=== PATIENT | female | born 1960 | race Caucasian/White ===

== ENCOUNTER 2017-11-15 09:54 | Inpatient (IN) | payer BC ==
[2017-11-15] MEDS ORDERED: LORazepam INJ* 2 MG/ML 1 ML VIAL ONE (09:57)
[2017-11-15] MEDS ORDERED: Propofol* 10 MG/ML 20 ML BTL IV PUSH ONE ×2 (10:06→10:22)
[2017-11-15] MEDS ORDERED: Propofol* 100 ML ONE (10:10)
[2017-11-15] MEDS ORDERED: Succinylcholine* 20 MG/ML 10 ML VIAL ONE (10:14)
[2017-11-15] MEDS ORDERED: fentaNYL* 50 MCG/ML 2 ML VIAL (100 MCG VIAL) IV SLOW PU ONE (10:22)
[2017-11-15] MEDS ORDERED: metroNIDAZOLE IV 500 MG/100ML* 500 MG/100 ML BAG IVPB ONE (10:23)
[2017-11-15] MEDS ORDERED: Piperacillin/Tazobac ADVAN(*) 3.375 GM in NS 0.9% 100 ML* 100 ML IVPB ONE (10:23)
[2017-11-15] MEDS ORDERED: Vancomycin(*) 1,250 MG in NS 0.9% 250 ML* 250 ML IVPB ONE (10:23)
[2017-11-15] MEDS ORDERED: Thiamine IV* 100 MG, Folic Acid IV* 1 MG, Multiple Vitamin IV ADULT* 10 ML in NS 0.9% 1... IV ONE (10:23)
[2017-11-15 10:24] LABS: ABS Basophils 0 10^3/ul (0-0.2); ABS Eosinophils 0 10^3/ul (0-0.6); ABS Lymphocytes 0.6 10^3/ul (1.0-4.8); ABS Neutrophils 14.9 10^3/ul (1.5-7.7); ABS Nucleated RBC 0 10^3/ul; Eosinophil % 0 % (0-6); Hematocrit 39 % (35-47); Hemoglobin 12.7 g/dl (12.0-16.0); Lymphocyte % 3.8 % (25-47); Mean Corpuscular HGB Conc 33 g/dl (31-36); Mean Corpuscular Hemoglobin 28 pg (27-31); Mean Corpuscular Volume 85 fL (80-97); Mean Platelet Volume 8.4 um3 (7.4-10.4); Nucleated Red Blood Cells % 0; Platelet Count 267 10^3/ul (150-450); Red Blood Count 4.51 10^6/ul (4.00-5.40); Red Cell Distribution Width 13 % (10.5-15); White Blood Count 16.6 10^3/ul (3.5-10.8)
[2017-11-15] MEDS ORDERED: Albuterol/Ipratropium NEB.SOL* Albuterol 2.5 MG/Ipratropium 0.5 MG 3 ML INH ONE (10:24)
[2017-11-15 10:32] LABS: INR 0.94 (0.77-1.02)
[2017-11-15 10:35] LABS: EGFR Non-African American 48.8 (>60)
[2017-11-15] MEDS ORDERED: LORazepam INJ* 2 MG/ML 1 ML VIAL IV PUSH ONE (10:37)
[2017-11-15] MEDS ORDERED: Lactated Ringers 1000 ml Bag*IV.FLUID IV ONE (10:37)
[2017-11-15] MEDS ORDERED: methylPREDNISolone 125 MG* 2 ML VIAL IV ONE (10:48)
--- NOTE | 2017-11-15 10:51 | ED ---
Complex/Multi-Sys Presentation - HPI Summary HPI Summary: This is scribe Tiago Dusty documenting for attending Jacinto Lin. A 57 y/o female HUSSAIN presents to ED s/p diabetic issues. In the ED room, the patient has a pulse of 120, O2 saturation of 100% and blood pressure of 176/ 133. As per triage, "EMS called for diabetic concerns. BG was 500, HTN, tachycardic, severe AMS, left sided weakness, wheezing, per family patient hasnt had anything PO for two days. well check performed yesterday by EMS, patient was not this severe". Patient is hunched over in bed and is difficult to put on her back. According to patient, she has neck pain. As per EMS, they where out there with patient yesterday (with partner he came with today, Ezequiel) for diabetic issues. The patient didn't want to go to hospital. However, yesterday wasn't DM as she took her pills/meds with ETOH and was laying out. Patient was using ETOH, not eating or drinking. Called 911 today in AM and says it is diabetic problem. She was hyperglycemic at 500, O2 saturation was at 62% and wheezing (primarily upper left sided wheezes). Gave 1 Albuterol. She was hypertensive as she was 200/110 and HR was 120. She is also febrile. Patient was communicative a bit but restless. Patient has weak left arm and weakness/lean on left side. Also, wounds in lower limbs with swelling. She has been dealing with wounds with leg swelling as a result. PERRL. Wounds on arm with bandage bleeding. Profound left-sided weakness. with family is in [place]. She was talking but just weak. Could not hold left arm up at all. is emotional as he is very concerned for her and she doesn't take care of herself. No food or drink for 2 days. Did not have left-sided issues yesterday. At 1007, as per MD: Patient states neck pain. Force flexing right hip. Force elevation to right elbow. Gazed deviation to the right. Gazing and contraction on right side. At 1020, as per : Patient threw up many times. Patient has HBP and fluid in legs. Three days ago, patient was given three new medications. His has been on two different kinds of pain medications and drinks a lot of ETOH. All medications prescribed. Antibiotics for feet. MEDICATIONS: - Oxycodone HCL 5 m tab every 8 hours as needed. Max is 5 tabs. - Carvedilol 3.125 m tab per day, twice a day. - Torsemid 20 m tabs per day. - Tramadol HCL 50 m tabs every 8 hours as needed. Max is 6 tabs. - Lisinopril 20 m tabs per day. - Cephalexin 500 m tab per day, four times day. - Levothyroxine 50 mc tab per day at breakfast. - Spironolactone 25 m tab per day. - Toresemide 20 m tab per day. At 1033, as per , EMS came yesterday because she wasn't acting right. Before yesterday (Thursday), she cooked dinner with kids over at the house. Had to happen Thursday night or Thursday morning where she took medications with drinking ETOH in the afternoon/night. He noticed problem Thursday night and the patient was getting worse. Her arm wasn't like it was till last night where it was stiff. She drinks a half-gallon of [employer] every other day of the week. Patient has been vomiting several times in bathroom around Thursday. She also vomited last night. She did get up and walk around a bit, but she didn't know where she was. She was out of then, all she could say is the day and month (got it correct). He told EMS to take her, but EMS spoke to police and said they didn't need to take her. Patient lives in [place], [place]. "[facility] " with a girl and koffi. He wanted to have her come to hospital via EMS yesterday as his mother and father was present. He called them because she wouldn't say anything and didn't know what to do. Patient is usually good with insulin, as she eats yogurt and does her shot in the AM. She takes pills by noontime and then she starts drinking soon after. Patient feel out of bed 2-3 times. Patient layed on floor with blanket and wouldn't get up. Only gave her 4-5 bottles of water. No PMHx of seizure. Last week she went to doctors who did several tests and they couldn't find anything. They did blood tests because of the swelling of her legs. Doctors didn't know what was wrong with her so they sent her to a specialist for her feet (worried about infection and DM). He spoke to doctor last night where he found that the patient only told him that she drinks small glass of ETOH. Reevaluation at 1057: Seizure activity appears to have seized. HR 110, BP 170 systolic. Differentials are intracranial hemmorage, alcohol withdrawal seizure, CVA and lower suspicion for meningitis. Reevaluation at 1210: Dr. Brice called to inform MD that he should start insulin drip, defer the lumbar punction decision to neurologist. Cover empiric antibiotics. I, Dr. Lin, personally performed the services described in this documentation as scribed in my presence and it is both accurate and complete. - History Of Current Complaint Chief Complaint: EDAltMentalStatus Time Seen by Provider: 11/15/17 10:04 Hx Obtained From: Family/[employer], EMS Hx From Patient Unobtainable Due To: Altered Mental Status Onset/Duration: Lasting Days, Still Present Timing: Constant Character: Unable To Describe Aggravating Factor(s): NOTHING Alleviating Factor(s): NOTHING Associated Signs And Symptoms: Positive: Weakness, Vomiting, Fever - Allergies/Home Medications Allergies/Adverse Reactions: Allergies Allergy/AdvReac Type Severity Reaction Status Date / Time No Known Allergies Allergy Verified 01/15/16 10:42 PMH/Surg Hx/FS Hx/Imm Hx Endocrine/Hematology History: Reports: Hx Diabetes - type I Cardiovascular History: Reports: Hx Hypercholesterolemia, Hx Hypertension Infectious Disease History: No Infectious Disease History: Denies: Traveled Outside the [place] in Last 30 Days - Family History Known Family History: Positive: Cardiac Disease - Mother 39yo heart disease and DM, Diabetes - Social History Alcohol Use: Daily Hx Substance Use: No Substance Use Type: Reports: None Hx Tobacco Use: Yes Smoking Status (MU): Heavy Every Day Tobacco Smoker Type: Cigarettes Review of Systems Positive: Fever. Negative: Chills Negative: Erythema Negative: Sore Throat Positive: Other - POSITIVE: HTN, tachycardia. Negative: Chest Pain Positive: Other - POSITIVE: Wheezing. Negative: Shortness Of Breath, Cough Positive: Vomiting. Negative: Abdominal Pain, Nausea Negative: dysuria, hematuria Positive: Edema - Legs, Other - POSITIVE: Left-sided deficit. Negative: Myalgia Positive: Other - POSITIVE: Wounds on arms (bleeding). Negative: Rash Neurological: Other - NEGATIVE: Dizziness;POSITIVE: Seizure Positive: Weakness All Other Systems Reviewed And Are Negative: Yes Physical Exam - Summary Physical Exam Summary: 1018: Post-intubation Constitutional: Distressed. Patient is in curled up position on stretcher. Glyscope reveals secretions over epiglottis. Suspect aspiration. Muscle tone is normal now, however, patient is paralyzed so that is not a fair assessment, will recheck. Skin: Warm, Dry HENT: Normocephalic; Atraumatic Eyes: Conjunctiva normal Neck: Musculoskeletal ROM normal neck. (-) JVD, (-) Stridor, (-) Tracheal deviation Cardio: Rhythm regular, rate normal, Heart sounds normal; Intact distal pulses; The pedal pulses are 2+ and symmetric. Radial pulses are 2+ and symmetric. (-) Murmur Pulmonary/Chest wall: Bilateral equal breath sounds Abd: Soft, (-) epigastric tenderness, (-) Distension, (-) Guarding, (-) Rebound. No epigastric sounds Musculoskeletal: (-) Edema Lymph: (-) Cervical adenopathy Neuro: Alert, Oriented x3 Psych: Mood and affect Normal Triage Information Reviewed: Yes Vital Signs On Initial Exam: Initial Vitals Temp Pulse Resp BP Pulse Ox 101.1 F 122 28 205/133 92 11/15/17 09:59 11/15/17 09:59 11/15/17 09:59 11/15/17 09:59 11/15/17 09:59 Vital Signs Reviewed: Yes Diagnostics - Vital Signs Vital Signs Temp Pulse Resp BP Pulse Ox 11/15/17 10:36 24 11/15/17 09:59 101.1 F 122 20 205/133 92 - Laboratory Lab Results: Lab Results 11/15/17 11/15/17 11/15/17 Range/Units 10:08 10:08 10:08 WBC 16.6 H (3.5-10.8) 10^3/ul RBC 4.51 (4.00-5.40) 10^6/ul Hgb 12.7 (12.0-16.0) g/dl Hct 39 (35-47) % MCV 85 (80-97) fL MCH 28 (27-31) pg MCHC 33 (31-36) g/dl RDW 13 (10.5-15) % Plt Count 267 (150-450) 10^3/ul MPV 8.4 (7.4-10.4) um3 Neut % (Auto) 90.0 H (38-83) % Lymph % (Auto) 3.8 L (25-47) % [place] % (Auto) 5.9 (0-7) % Eos % (Auto) 0 (0-6) % Baso % (Auto) 0.3 (0-2) % Absolute Neuts (auto) 14.9 H (1.5-7.7) 10^3/ul Absolute Lymphs (auto) 0.6 L (1.0-4.8) 10^3/ul Absolute Monos (auto) 1.0 H (0-0.8) 10^3/ul Absolute Eos (auto) 0 (0-0.6) 10^3/ul Absolute Basos (auto) 0 (0-0.2) 10^3/ul Absolute Nucleated RBC 0 10^3/ul Nucleated RBC % 0 INR (Anticoag Therapy) 0.94 (0.77-1.02) APTT 28.2 (26.0-36.3) seconds Patient Temperature ABG pH ABG pH (Temp Correct) ABG pCO2 ABG pCO2 (Temp Corrct ABG pO2 ABG pO2 (Temp Correct ABG HCO3 ABG O2 Saturation ABG Base Excess Respiration Rate O2 Delivery Device Ventilator Type Vent Mode FiO2 Inspiratory Time PEEP Pressure Support Pressure Control EPAP IPAP BiPAP Sodium 125 L (135-145) mmol/L Potassium 4.5 (3.5-5.0) mmol/L Chloride 85 L (101-111) mmol/L Carbon Dioxide 14 L* (22-32) mmol/L Anion Gap 26 H (2-11) mmol/L BUN 34 H (6-24) mg/dL Creatinine 1.15 H (0.51-0.95) mg/dL Est GFR ( Amer) 59.1 (>60) Est GFR (Non-Af Amer) 48.8 (>60) BUN/Creatinine Ratio 29.6 H (8-20) Glucose 550 H* (70-100) mg/dL Lactic Acid (0.5-2.0) mmol/L Calcium 9.3 (8.6-10.3) mg/dL Total Bilirubin 1.10 H (0.2-1.0) mg/dL AST 32 (13-39) U/L ALT 23 (7-52) U/L Alkaline Phosphatase 110 H (34-104) U/L Ammonia (16-53) mcmol/L Troponin I 0.04 H* (<0.04) ng/mL Total Protein 6.4 (6.4-8.9) g/dL Albumin 3.3 (3.2-5.2) g/dL Globulin 3.1 (2-4) g/dL Albumin/Globulin Ratio 1.1 (1-3) TSH Pending Free T4 Pending Serum Alcohol Pending 11/15/17 11/15/17 11/15/17 Range/Units 10:08 10:08 10:35 WBC (3.5-10.8) 10^3/ul RBC (4.00-5.40) 10^6/ul Hgb (12.0-16.0) g/dl Hct (35-47) % MCV (80-97) fL MCH (27-31) pg MCHC (31-36) g/dl RDW (10.5-15) % Plt Count (150-450) 10^3/ul MPV (7.4-10.4) um3 Neut % (Auto) (38-83) % Lymph % (Auto) (25-47) % [place] % (Auto) (0-7) % Eos % (Auto) (0-6) % Baso % (Auto) (0-2) % Absolute Neuts (auto) (1.5-7.7) 10^3/ul Absolute Lymphs (auto) (1.0-4.8) 10^3/ul Absolute Monos (auto) (0-0.8) 10^3/ul Absolute Eos (auto) (0-0.6) 10^3/ul Absolute Basos (auto) (0-0.2) 10^3/ul Absolute Nucleated RBC 10^3/ul Nucleated RBC % INR (Anticoag Therapy) (0.77-1.02) APTT (26.0-36.3) seconds Patient Temperature Not Reportable ABG pH Pending ABG pH (Temp Correct) Pending ABG pCO2 Pending ABG pCO2 (Temp Corrct Pending ABG pO2 Pending ABG pO2 (Temp Correct Pending ABG HCO3 Pending ABG O2 Saturation Pending ABG Base Excess Pending Respiration Rate Not Reportable O2 Delivery Device vent Ventilator Type Not Reportable Vent Mode Not Reportable FiO2 100 Inspiratory Time Not Reportable PEEP Not Reportable Pressure Support Not Reportable Pressure Control Not Reportable EPAP Not Reportable IPAP Not Reportable BiPAP Not Reportable Sodium (135-145) mmol/L Potassium (3.5-5.0) mmol/L Chloride (101-111) mmol/L Carbon Dioxide (22-32) mmol/L Anion Gap (2-11) mmol/L BUN (6-24) mg/dL Creatinine (0.51-0.95) mg/dL Est GFR ( Amer) (>60) Est GFR (Non-Af Amer) (>60) BUN/Creatinine Ratio (8-20) Glucose (70-100) mg/dL Lactic Acid 2.5 H* (0.5-2.0) mmol/L Calcium (8.6-10.3) mg/dL Total Bilirubin (0.2-1.0) mg/dL AST (13-39) U/L ALT (7-52) U/L Alkaline Phosphatase (34-104) U/L Ammonia 49 (16-53) mcmol/L Troponin I (<0.04) ng/mL Total Protein (6.4-8.9) g/dL Albumin (3.2-5.2) g/dL Globulin (2-4) g/dL Albumin/Globulin Ratio (1-3) TSH Free T4 Serum Alcohol Result Diagrams: 11/15/17 10:08 11/15/17 18:04 Lab Statement: Any lab studies that have been ordered have been reviewed, and results considered in the medical decision making process. Re-Evaluation - Re-Evaluation First Eval Re-Evaluation Time: 10:07 Comment: is tearful and very sad for his . MD gave patient's plan and decision making. [facility]. Second Eval Re-Evaluation Time: 10:09 Comment: In the ED room, the patient was noted to be shivering/shaking. Third Eval Re-Evaluation Time: 10:15 Comment: In ED room, the patient has a pulse of 115 BPM, O2 saturation of 98% and blood pressure of 194/199. Fourth Eval Re-Evaluation Time: 10:40 Comment: It was noted that the patient is lying on her back on stretcher. HR and BP is coming down, as per nursing staff. In the ED room, the patient has a pulse of 110, O2 saturation of 100% and blood pressure of 201/108. Fifth Eval Re-Evaluation Time: 10:42 Comment: Dr. Brice is in ED room with patient. brought Dr. Brice up to speed of case. Sixth + Eval Re-Evaluation Time: 10:53 Comment: MD called Dr. Kinney and updated him on case. Dr. Kinney will see patient in ICU. Complex Multi-Symp Course/Dx Course Of Treatment: A 57 y/o female HUSSAIN presents to ED s/p diabetic issues. In the ED room, the patient has a pulse of 120, O2 saturation of 100% and blood pressure of 176/133. As per triage, "EMS called for diabetic concerns. BG was 500, HTN, tachycardic, severe AMS, left sided weakness, wheezing, per family patient hasnt had anything PO for two days. well check performed yesterday by EMS, patient was not this severe". Patient is hunched over in bed and is difficult to put on her back. According to patient, she has neck pain. No laboratory scans were done. In the ED course, the patient received Duoneb, Ceftriaxone Sodium, Fentanyl Citrate, Insulin, Lactated Ringers, Lorazepam, Solu -Medrol, Flagyl, Piperacillin, Diprivan, Anectine, Thiamine and Vancomycin. Patient care was discussed with Dr. Brice who accepts patient for admission. Patient will be admitted with a diagnosis of DKA, focal seizure and status epilepsy. Patient family is agreeable with this plan. - Diagnoses Provider Diagnoses: Epilepsy with status epilepticus, DKA (diabetic ketoacidoses), Focal seizure - Physician Notifications Discussed Care Of Patient With: Colin Brice Time Discussed With Above Provider: 11:19 Instructed by Provider To: Other - Accepts patient for admission to ICU. - Critical Care Time Critical Care Time: 30-74 min - 60 minutes. Discharge - Sign-Out/Discharge Documenting (check all that apply): Patient Departure - ADMIT - Discharge Plan Condition: Stable Disposition: ADMITTED TO [facility]
--- NOTE | 2017-11-15 10:52 | RAD ---
HISTORY: AMS COMPARISONS: June 09, 2003 VIEWS: 1: frontal portable view of the chest at 10:33 AM. The patient is obliqued to the left. FINDINGS: LINES AND TUBES: An endotracheal tube is noted with the tip overlying the trachea between the clavicles and the antionette. A gastric tube is noted. The tip is below the [id number] of the current examination, but is below the diaphragm. CARDIOMEDIASTINAL SILHOUETTE: The cardiomediastinal silhouette is normal for portable technique. PLEURA: The costophrenic angles are sharp. No pleural abnormalities are noted. LUNG PARENCHYMA: The lungs are clear. ABDOMEN: The upper abdomen is clear. There is no subphrenic gas. BONES AND SOFT TISSUES: No bone or soft tissue abnormalities are noted. IMPRESSION: LINES AND TUBES ABOVE. NO ACTIVE CARDIOPULMONARY DISEASE.
[2017-11-15 10:58] LABS: Urine Appearance Cloudy; Urine Blood 3+ (Negative); Urine Color Yellow; Urine Ketones 2+ (Negative); Urine Protein 3+(>=500 mg/dL) (Negative); Urine Red Blood Cell 3+(>10/hpf) (Absent); Urine Urobilinogen Negative (Negative); Urine White Blood Cell Absent (Absent)
[2017-11-15] MEDS ORDERED: Propofol* 500 MG/50 ML BTL IV SCH (11:00)
--- NOTE | 2017-11-15 11:29 | RAD ---
HISTORY: AMS COMPARISONS: January 16, 2016 TECHNIQUE: Multiple contiguous axial CT scans were obtained of the head without intravenous contrast. FINDINGS: The study is limited by patient motion artifact. HEMORRHAGE/INFARCT: There is no hemorrhage or acute infarct. MASSES/SHIFT: There is no mass or shift. EXTRA-AXIAL SPACES: There are no extra-axial fluid collections. SULCI AND VENTRICLES: The sulci and ventricles are normal in size and position for the patient's stated age. CEREBRUM: There are no focal parenchymal abnormalities. BRAINSTEM: There are no focal parenchymal abnormalities. CEREBELLUM: There are no focal parenchymal abnormalities. VESSELS: The vessels are grossly normal. PARANASAL SINUSES: The paranasal sinuses are clear. ORBITS: The orbits are unremarkable. BONES AND SOFT TISSUE: No bone or soft tissue abnormalities are noted. OTHER: Endotracheal and orogastric tubes are noted IMPRESSION: NO ACUTE INTRACRANIAL PATHOLOGY.
--- NOTE | 2017-11-15 11:40 | RAD ---
HISTORY: AMS NECK PAIN COMPARISONS: None TECHNIQUE: Multiple contiguous axial CT scans were obtained of the cervical spine without intravenous contrast, with coronal and sagittal multiplanar reformations. FINDINGS: BRAIN: The visualized brain is unremarkable CENTRAL CANAL: Evaluation of the central canal is limited on CT technique; however, there is no obvious canalicular mass or epidural hemorrhage. ALIGNMENT: There is grade 1 anterolisthesis of C3 on C4. There is grade 1 retrolisthesis of C5 on C6. VERTEBRAL BODIES: There is mild anterolateral marginal osteophyte formation. There is reactive end plate changes at C3-C4. JOINTS: There is diffuse uncovertebral and facet osteoarthritis most pronounced at C3-C4. There is partial fusion across the facet joint on the left at C3-C4. MUSCULATURE: Unremarkable INTERVERTEBRAL DISCS: There is diffuse loss of intervertebral disc height. AXIAL IMAGES: C2-C3: There is bilateral uncovertebral hypertrophy. There is mild left neural foraminal narrowing. There is no osseous central canal stenosis. C3-C4: There is bilateral uncovertebral and facet hypertrophy. There is moderate right and severe left neural foraminal narrowing. There is moderate narrowing of the central canal. C4-C5: There is right greater than left facet hypertrophy. There is no osseous neural foraminal narrowing or central canal stenosis. C5-C6: There is bilateral uncovertebral hypertrophy. There is mild bilateral neuroforaminal narrowing. There is no osseous central canal stenosis. C6-C7: There is no osseous neural foraminal narrowing or central canal stenosis. C7-T1: There is no osseous neural foraminal narrowing or central canal stenosis. SOFT TISSUES: The visualized soft tissues of the neck are unremarkable. There is emphysematous change of the lung apices. The prevertebral fat stripe is preserved. OTHER: An endotracheal tube and orogastric tube are noted. IMPRESSION: 1. NO ACUTE OSSEOUS INJURY TO THE CERVICAL SPINE. 2. DEGENERATIVE DISC DISEASE AND OSTEOARTHRITIS, ADVANCED AT C3-C4, WITH ASSOCIATED SPONDYLOLISTHESIS. 3. THERE IS MULTILEVEL NEUROFORAMINAL NARROWING DESCRIBED ABOVE. 4. THERE IS MODERATE NARROWING OF CENTRAL CANAL AT C3-C4.
[2017-11-15] MEDS ORDERED: Insulin REGULAR(*) 1 UNITS UNIT IV PUSH ONE (12:22)
[2017-11-15] MEDS ORDERED: Insulin REGULAR(*) 1 UNITS UNIT ONE (12:57)
[2017-11-15] MEDS ORDERED: Vancomycin per Pharmacy* NOTE FOLLOW UP SCH (13:00)
[2017-11-15] MEDS ORDERED: Insulin IVPB 100 units/100 ml 100 UNITS/100 ML UNIT IVPB SCH (13:00)
--- NOTE | 2017-11-15 13:28 | HP ---
H&P (Free Text) History and Physical: History and Physical -- Critical Care Limitations in history/physical: intubated, mental status change HPI: 57y F pmhx of DM, Hypothyroidism, Cardiomyopathy, Hypertension, chronic pain; patient comes to ER for change in mental status. Thursday night to thu morning patient developed recurrent vomiting, no blood. She was more lethargic and confused all day. Some complaints of abdominal pain also. No fever/chills. No sob. Chronically sob on walking though, not a new symptom. No falls or trauma. Does not check BG at home, takes insulin though. She was confused yesterday, not very verbal according to and had some left side weakness as per , called EMS. They deemed her competent to refuse care and not go to ER.She was verbal and stated she did not want to go to ER. This morning she was lethargic, not answering questions at all. Brought to ER. Obtunded mental status, intubated by ER. In ER, tmax 101.1, tachycardic, BP >200 systolic. Started on propofol. Given IVF sepsis bolus, chance placed and had retention. Noted to have some right sided rigidity, left side weakness? Unclear. Eyes were deviated to the right. CT brain no acute bleed or stroke noted; CT neck no acute findings. 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; family- Allergies: NKDA Home Medications: aldactone 25mg daily, Lisinopril 20mg daily, torsemide 40mg daily, coreg 3.125mg bid, oxycodone 5 q8h prn, levemire unknown, synthroid 50mcg daily Tele: sinus tachycardia Vitals: Vital Signs Temp 102.0 F 11/15/17 13:15 Pulse 115 11/15/17 13:15 Resp 24 11/15/17 11:45 BP 135/65 11/15/17 13:15 Pulse Ox 100 11/15/17 13:15 Intake & Output 11/14/17 11/15/17 11/15/17 18:59 06:59 18:59 Intake Total 1999 Output Total 1999 Balance 0 Weight 65.771 kg Intake: IV Fluids 1999 Output: Residual 1999 Chance 16 Fr Temperature 1999 Probe O2/Vent: AC 14/400/+5/40% Infusions: propofol 50 Current Medications: Chlorhexidine Gluconate (Peridex Mouth Wash 0.12%*) 15 ml TOPICAL Q4H [facility] Famotidine (Pepcid Iv*) 20 mg IV SLOW PU DAILY [facility] Folic Acid (Folvite Tab*) 1 mg PO DAILY [facility] Sodium Chloride (Ns 0.9% 1000 Ml*) 1,000 mls @ 125 mls/hr IV PER RATE [facility] Propofol (Diprivan*) 100 mls @ 15.785 mls/hr IV .(Initial Rate) [facility]; Protocol Midazolam HCl 100 mg/ Sodium (Chloride) 100 mls @ 5 mls/hr IV Q20H [facility]; Protocol Vancomycin HCl 1,000 mg/ (Sodium Chloride) 250 mls @ 166.667 mls/hr IVPB Q12H [facility] Insulin Human Regular (Insulin Regular Ivpb) 100 units in 100 mls @ 6.577 mls/ hr IVPB .(INITIAL RATE) [facility]; Protocol Ampicillin Sodium 2 gm/ Sodium (Chloride) 100 mls @ 200 mls/hr IVPB Q4H [facility] Ceftriaxone Sodium 1 gm/ (Sodium Chloride) 50 mls @ 200 mls/hr IVPB Q24H [facility] Ceftriaxone Sodium 2 gm/ (Sodium Chloride) 100 mls @ 200 mls/hr IVPB Q12H [facility] Acyclovir Sodium 650 mg/ (Sodium Chloride) 113 mls @ 0 mls/hr IVPB Q8H [facility] Pharmacy Consult (Vancomycin Per Pharmacy*) 1 note FOLLOW UP .VANC PER PHARMACY [facility] Thiamine HCl (Vitamin B-1 Tab*) 100 mg PO DAILY [facility] Physical Exam: General: intubated, sedated Head: normocephalic, atraumatic HEENT: no pallor, no icterus, moist mucous membranes Neck: soft, supple, no jvd CVS: tachycardic, regular, no murmur Resp: bilateral air entry, no rhales, no wheeze, no rhonchi, no acc muscle use Abdomen: soft, nontender, nondistended, bowel sounds present Ext: pulses+, warm, bilateral 2+ LE edema+ Skin: intact Neuro: intubated, sedated; pupils asymmetric left 3mm and right 2mm, sluggish, upper ext flexion/rigidity+, no overt seizures Labs: Laboratory Results - last 24 hr 11/15/17 11/15/17 11/15/17 10:08 10:08 10:08 WBC 16.6 H RBC 4.51 Hgb 12.7 Hct 39 MCV 85 MCH 28 MCHC 33 RDW 13 Plt Count 267 MPV 8.4 Neut % (Auto) 90.0 H Lymph % (Auto) 3.8 L [place] % (Auto) 5.9 Eos % (Auto) 0 Baso % (Auto) 0.3 Absolute Neuts (auto) 14.9 H Absolute Lymphs (auto) 0.6 L Absolute Monos (auto) 1.0 H Absolute Eos (auto) 0 Absolute Basos (auto) 0 Absolute Nucleated RBC 0 Nucleated RBC % 0 INR (Anticoag Therapy) 0.94 APTT 28.2 Patient Temperature ABG pH ABG pH (Temp Correct) ABG pCO2 ABG pCO2 (Temp Corrct ABG pO2 ABG pO2 (Temp Correct ABG HCO3 ABG O2 Saturation ABG Base Excess Respiration Rate O2 Delivery Device Ventilator Type Vent Mode FiO2 Inspiratory Time PEEP Pressure Support Pressure Control EPAP IPAP BiPAP Sodium 125 L Potassium 4.5 Chloride 85 L Carbon Dioxide 14 L* Anion Gap 26 H BUN 34 H Creatinine 1.15 H Est GFR ( Amer) 59.1 Est GFR (Non-Af Amer) 48.8 BUN/Creatinine Ratio 29.6 H Glucose 550 H* POC Glucose (mg/dL) Lactic Acid Calcium 9.3 Total Bilirubin 1.10 H AST 32 ALT 23 Alkaline Phosphatase 110 H Ammonia Troponin I 0.04 H* Total Protein 6.4 Albumin 3.3 Globulin 3.1 Albumin/Globulin Ratio 1.1 Amylase 28 L Lipase < 10 L TSH 1.60 Free T4 1.04 Urine Color Urine Appearance Urine pH Ur Specific [place] Urine Protein Urine Ketones Urine Blood Urine Nitrate Urine Bilirubin Urine Urobilinogen Ur Leukocyte Esterase Urine WBC (Auto) Urine RBC (Auto) Ur Squamous Epith Cells Amorphous Crystals Urine Bacteria Urine Glucose Urine Opiates Screen Ur Barbiturates Screen Ur Phencyclidine Scrn Ur Amphetamines Screen U Benzodiazepines Scrn Urine Cocaine Screen U Cannabinoids Screen Serum Alcohol < 10 11/15/17 11/15/17 11/15/17 10:08 10:08 10:35 WBC RBC Hgb Hct MCV MCH MCHC RDW Plt Count MPV Neut % (Auto) Lymph % (Auto) [place] % (Auto) Eos % (Auto) Baso % (Auto) Absolute Neuts (auto) Absolute Lymphs (auto) Absolute Monos (auto) Absolute Eos (auto) Absolute Basos (auto) Absolute Nucleated RBC Nucleated RBC % INR (Anticoag Therapy) APTT Patient Temperature Not Reportable ABG pH 7.24 L ABG pH (Temp Correct) Not Reportable ABG pCO2 26 L ABG pCO2 (Temp Corrct Not Reportable ABG pO2 499 H ABG pO2 (Temp Correct Not Reportable ABG HCO3 13.5 L ABG O2 Saturation 100.4 H ABG Base Excess -14.7 L Respiration Rate Not Reportable O2 Delivery Device vent Ventilator Type Not Reportable Vent Mode Not Reportable FiO2 100 Inspiratory Time Not Reportable PEEP Not Reportable Pressure Support Not Reportable Pressure Control Not Reportable EPAP Not Reportable IPAP Not Reportable BiPAP Not Reportable Sodium Potassium Chloride Carbon Dioxide Anion Gap BUN Creatinine Est GFR ( Amer) Est GFR (Non-Af Amer) BUN/Creatinine Ratio Glucose POC Glucose (mg/dL) Lactic Acid 2.5 H* Calcium Total Bilirubin AST ALT Alkaline Phosphatase Ammonia 49 Troponin I Total Protein Albumin Globulin Albumin/Globulin Ratio Amylase Lipase TSH Free T4 Urine Color Urine Appearance Urine pH Ur Specific [place] Urine Protein Urine Ketones Urine Blood Urine Nitrate Urine Bilirubin Urine Urobilinogen Ur Leukocyte Esterase Urine WBC (Auto) Urine RBC (Auto) Ur Squamous Epith Cells Amorphous Crystals Urine Bacteria Urine Glucose Urine Opiates Screen Ur Barbiturates Screen Ur Phencyclidine Scrn Ur Amphetamines Screen U Benzodiazepines Scrn Urine Cocaine Screen U Cannabinoids Screen Serum Alcohol 11/15/17 11/15/17 11/15/17 10:46 10:46 12:18 WBC RBC Hgb Hct MCV MCH MCHC RDW Plt Count MPV Neut % (Auto) Lymph % (Auto) [place] % (Auto) Eos % (Auto) Baso % (Auto) Absolute Neuts (auto) Absolute Lymphs (auto) Absolute Monos (auto) Absolute Eos (auto) Absolute Basos (auto) Absolute Nucleated RBC Nucleated RBC % INR (Anticoag Therapy) APTT Patient Temperature ABG pH ABG pH (Temp Correct) ABG pCO2 ABG pCO2 (Temp Corrct ABG pO2 ABG pO2 (Temp Correct ABG HCO3 ABG O2 Saturation ABG Base Excess Respiration Rate O2 Delivery Device Ventilator Type Vent Mode FiO2 Inspiratory Time PEEP Pressure Support Pressure Control EPAP IPAP BiPAP Sodium Potassium Chloride Carbon Dioxide Anion Gap BUN Creatinine Est GFR ( Amer) Est GFR (Non-Af Amer) BUN/Creatinine Ratio Glucose POC Glucose (mg/dL) > 444 H* Lactic Acid Calcium Total Bilirubin AST ALT Alkaline Phosphatase Ammonia Troponin I Total Protein Albumin Globulin Albumin/Globulin Ratio Amylase Lipase TSH Free T4 Urine Color Yellow Urine Appearance Cloudy Urine pH 5.0 Ur Specific [place] 1.020 Urine Protein 3+(>=500 mg/dl) A Urine Ketones 2+ A Urine Blood 3+ A Urine Nitrate Negative Urine Bilirubin Negative Urine Urobilinogen Negative Ur Leukocyte Esterase Negative Urine WBC (Auto) Absent Urine RBC (Auto) 3+(>10/hpf) A Ur Squamous Epith Cells Present A Amorphous Crystals Present A Urine Bacteria Absent Urine Glucose 3+(>=500 mg/dl) A Urine Opiates Screen None detected Ur Barbiturates Screen None detected Ur Phencyclidine Scrn None detected Ur Amphetamines Screen None detected U Benzodiazepines Scrn None detected Urine Cocaine Screen None detected U Cannabinoids Screen None detected Serum Alcohol Imaging: cxr 11/15 ett above antionette, no infiltrates ct brain 11/[address] neck 11/15 mild DJD noted Assessment: 57y F pmhx of DM, Hypothyroidism, Cardiomyopathy, Hypertension, chronic pain; patient comes to ER for change in mental status. Thursday night to thu morning patient developed recurrent vomiting, increasing confusion x2 days. Worsenign mental status on 11/15 morning. Question of left sided weakness on Thursday with EMS being called to home. In ER, intubated, febrile 101, tachycardic, displaying upper extremity rigidity and anisocoria. -DKA -Acute respiratory failure, unspecified -Encepehalopathy, metabolic/toxic vs ischemic -Vomitting -Sepsis, unclear source at this time -Hyperlactatemia -Volume overload Plan: Neuro- CT brain negative for acute process. Confusion/fevers, will empirically cover for meningitis. Due to abnormal neuro exam, will obtain EEG to r/o seizures. Needs MRI brain w/o contrast. r/o demyelination, abnormal Harmony hypodensity noted. Then will consider LP. Cont propofol infusion, versed infusion. Keep SBP <150 for now. Thiamine/folate for chronic alcohol use. Neurochecks q1h. CVS- hypertensive, increase sedation, goal SBP <150. Tachycardic, sinus. On multiple cardiac meds at home. Obtain TTE now to eval function. Hold diuretics due to DKA. Hold PO antihypertensives for now. IVF NS infusion 100cc/hr. EKG noted with Anterior qwaves. Resp- intubated, on 40% now. Sats okay. CXR clear of infiltrate. Breathing over vent, resp alkalosis. Increase sedation. VAP bundle. Asp prec. ID- febrile 101, wbc 16. CXR clear. CT brain clear. Confusion and fevers. Alcohol abuse. Possible gastroeneteritis, no diarrhea though. Cover for meningitis/encephalitis. Abnormal neuro-exam. MRI pending. LP if stable. Start Vanco 1gm q12h, Ceftriaxone 2gm q2, acyclovir 650mg iv q8h, ampicillin 2gm iv q4h. blood cultures sent. GI- NPO. H2B proph. Amylase/lipase normal. Renal- Cr 1.1. K 4.5. Metabolic acidosis, mild LA elevation. Pseudohyponatremia+ . Start NS infusion. BMP q4h. chance+ Heme- hg okay, plt okay. DVT proph. Endo- DKA+, BG elevated, acidosis+, ketones+. Start Insulin infusion, q1h fingersticks. check bmp q4h and phos level. Musculsk- pressure ulcer prophylaxis. Bedrest. Wounds- none Nutrition- NPO DVT prophylaxis: heparin sq GI prophylaxis: h2b Central Line: no Arterial Line: no Chance Cathetor: yes Disposition: ICU Code Status: full code Total Critical Care time is 60 minutes, excluding procedures/teaching Colin Brice MD [employer] Trader (Electronically Signed)
[2017-11-15] MEDS ORDERED: cefTRIAXone(*) 1 GM in NS 0.9% 50 ML* 50 ML IVPB SCH (14:00)
[2017-11-15] MEDS: Midazolam IV for DRIP* 100 MG in NS 0.9% 100 ML* 80 ML IV SCH (14:15)
--- NOTE | 2017-11-15 14:50 | PN ---
Progress Note - Progress Note Date of Service: 11/15/17 Note: Central Line Procedure Note Indication: venous access Diagnosis: acute respiratory failure, severe sepsis, encephalopathy Performed by: Colin Brice MD Consent: Informed ; placed in bedside chart Risks of procedure were explained if possible, all risks of pain/discomfort, bleeding, infection, PTX, Hemotx, need for chest tube, air/wire embolism, vessel injury, , and failed procedure disclosed and understanding verbalized [place] Protocol: Time-out was performed and the correct patient and site were verified - Prior labs/history was reviewed prior to procedure - Full sterile precautions with chlorhexidine/full drapes/gowns/gloves utilized - Left Internal Jugular Vein visualized with ultrasound - Vessel accessed under ultrasound guidance with return of nonpulsatile blood. A guidewire was passed into vessel and confirmed in vessel with ultrasound. 1 attempt was made to access vessel. Vessel was dilated and cathetor was passed over wire into vessel. All ports demonstrated good blood return and flushed. Catheter was sutured to site and dressing applied. Adequate hemostasis was achieved EBL <5 cc No immediate complications noted, patient tolerated procedure well. Post Procedure CXR: Pending Colin Brice MD Orthopedic Shoe Fitter (Electronically Signed)
[2017-11-15] MEDS: Chlorhexidine MOUTHWASH 0.12%* 15 ML UDC TOPICAL SCH ×3 (15:15→20:20)
[2017-11-15] MEDS: Ampicillin IV* 2 GM in NS 0.9% 100 ML* 100 ML IVPB SCH ×3 (15:23→22:41)
[2017-11-15 15:31] LABS: EGFR Non-African American 48.8 (>60)
--- NOTE | 2017-11-15 15:32 | RAD ---
HISTORY: central line placement COMPARISONS: November 15, 2017 at 10:36 AM VIEWS: 1: frontal portable view of the chest at 3:10 PM the patient is obliqued to the left. The right costophrenic angle is cut off. FINDINGS: LINES AND TUBES: An endotracheal tube is noted with the tip overlying the trachea between the clavicles and the antionette. A gastric tube is noted, with the tip in the left upper quadrant in a prepyloric position.. The left internal jugular venous catheter is noted with the tip overlying the expected location of the superior vena cava. CARDIOMEDIASTINAL SILHOUETTE: The cardiomediastinal silhouette is normal for portable technique. PLEURA: The costophrenic angles are sharp. No pleural abnormalities are noted. LUNG PARENCHYMA: The lungs are clear. ABDOMEN: The upper abdomen is clear. There is no subphrenic gas. BONES AND SOFT TISSUES: No bone or soft tissue abnormalities are noted. IMPRESSION: LIMITED STUDY. LINES AND TUBES ABOVE. NO ACTIVE CARDIOPULMONARY DISEASE.
[2017-11-15] MEDS ORDERED: Potassium Phosphate IV* 15 MMOLE in NS 0.9% 250 ML* 250 ML IVPB ONE (16:30)
[2017-11-15] MEDS: cefTRIAXone(*) 2 GM in NS 0.9% 100 ML* 100 ML IVPB SCH (16:34)
[2017-11-15] MEDS: Acyclovir IV(*) 500 MG in NS 0.9% 100 ML* 100 ML IVPB SCH (16:39)
--- NOTE | 2017-11-15 16:46 | PN ---
Progress Note - Progress Note Date of Service: 11/15/17 Note: CT brain negative, no hydro, no herniation INR <1 not on antiplatelet agents febrile, encephalopathy+ MRI tomorrow Bp stable 130-140s now Plan for LP for eval of meningitis discussed with family discussed with Dr Kinney; he talked with radiology also.
[2017-11-15] MEDS ORDERED: Piperacillin/Tazobac ADVAN(*) 3.375 GM in NS 0.9% 100 ML* 100 ML IVPB SCH (17:00)
--- NOTE | 2017-11-15 17:46 | PN ---
Progress Note - Progress Note Date of Service: 11/15/17 Note: Lumbar Puncture Note Indication: r/o meningitis Diagnosis: severe sepsis, encephalopathy Performed by: Dr Colin Brice Consent: Informed ; placed in bedside chart Risk/Benefits of procedure explained [place] Protocol: Time-out was performed and the correct patient and site were verified -Previous imaging and lab work (coags/platelets), medications were reviewed. -Full sterile precautions with Chlorhexidine/full drapes/gowns/gloves were utilized. -Patient was positioned in right lateral decubitus position -Lower lumbar intervertebral space (L4-L5) was marked. -SC lidocaine used for local anesthesia. -18 gauge needle was used to enter intervertebral space. The stylet was removed and opening pressure was measured to be 12 cm of water - 5-6 cc of clear CSF was collected. -Needle was removed after drainage, dressing was applied to site. -Specimen/Fluid sent for cell count/cytology/gram stain/culture and other indicated lab analysis Patient tolerated procedure well, no immediate complications noted. EBL - none Colin Brice MD Transportation Technician (Electronically Signed)
[2017-11-15 18:01] LABS: Body Fluid Source Cerebral Spinal
[2017-11-15] MEDS: KCL 20 MEQ/100 ML IVPREMIX* 20 MEQ/100 ML BAG IV SCH ×3 (18:05→22:40)
[2017-11-15 18:34] LABS: EGFR Non-African American 45.6 (>60)
[2017-11-15] MEDS: NS 0.9% 1000 ML* 1,000 ML IV SCH (19:00)
[2017-11-15] MEDS: Propofol* 100 ML IV SCH (19:00)
--- NOTE | 2017-11-15 19:50 | CONS ---
CONSULTATION REPORT: DATE OF CONSULT: 11/15/17 PATIENT OF: Dr. Brice; Dr. Pagan. HISTORY OF PRESENT ILLNESS: This is a 57-year-old woman, who according to her has been feeling slightly weak for the past few weeks in a global way, but no focal findings. She began having some nausea and some possible vomiting yesterday, on Thursday. He said she was her normal self and cooked dinner for family, but then yesterday, she did not get out of bed all day, which was highly unusual for her. She did not speak except said a few words to the EMS ambulance when they were called for her and she signed that she would not want to go to the ER, but she was not talking otherwise. She had some stiffness in both arms yesterday, and that got worse today, and her general lethargy was worse and was brought to the ER by ambulance and was admitted from there. She has not had prior seizures. She has been not eating, drinking alcohol heavily and been poorly compliant with her medications and that she also has diabetes. In the ER, she was described as profound left-sided weakness, but what the notes is that she was stiff on both sides. She has had diabetes for at least 4 years time. She has recently been treated with antibiotics for infection in her feet. She has had no runny nose, diarrhea at home. She has had some vomiting, it is unclear from the how much. PAST MEDICAL HISTORY: She has type 2 diabetes, hypothyroidism, alcohol abuse, tobacco abuse. He denies cardiac disease for her, but she is on medications that suggest otherwise. MEDICATIONS: Include: 1. Tramadol 2 tabs every 8 hours p.r.n. 2. Lisinopril 40 mg per day. 3. Cephalexin 500 four times a day. 4. Levothyroxine 50 mcg at breakfast. 5. Spironolactone 25 mg a day. 6. Furosemide 20 mg a day. 7. Carvedilol 3.125 twice a day. 8. Oxycodone 1 tab every 8 hours as needed. ALLERGIES: She has no known allergies. FAMILY HISTORY: Her mother at 36 of diabetes and alcoholism. SOCIAL HISTORY: She is a heavy alcoholic and has not been eating well, the did not quantitate. She has a 37-year smoke history and smokes about a pack a day. She does not apparently use recreational drugs. REVIEW OF SYSTEMS: Per is negative in all 14 spheres other than HPI. She is intubated and is unable to give a history. The ER notes by Dr. Lin' note seizure activity, but when I spoke to him, apparently this is a stiffness and Dr. Brice, who has seen her for a bit now notes that her stiffness is on both sides and has decreased a little bit since propofol has been increased. PHYSICAL EXAM: Her T-max was 101.1. She is currently 100.6, pulse 116, respirations 24, blood pressure 193/111. She is intubated on propofol drip and comatose. She withdraws slightly to noxious stim on both sides. Her left pupil is 2.5 mm, her right pupil is 1 mm, both are sluggish, disc were hard to see. I thought I saw her left disc and looking sharp, but she was not cooperative with the exam and it was a difficult exam. Face: She was intubated. There was no major asymmetry to the face. She had increased tone in both arms, which were in a flexed position. She had no purposeful movements on either side. Reflexes were 1. Chest: Clear. Cardiovascular: Regular rate and rhythm. Abdomen: Soft. DIAGNOSTIC STUDIES/LAB DATA: White count 16.6, hematocrit 39, platelets 267. Normal INR and PTT. Initial blood gas, 7.24, pCO2 26, pO2 499. Sodium 125, chloride 85, bicarb 14, BUN 34, creatinine 1.15, glucose 550, lactic acid 2.5, ammonia 49, troponin 0.04. Lipase is pending. Normal TSH. Normal liver function tests. UA at 1020, 3+ protein, 2+ ketones, bacteria absent. Toxicology negative. Drug screen negative for alcohol. ASSESSMENT AND PLAN: Diane is a complicated case and her acute history goes back to at least Thursday morning. Part of what is happening is a most likely diabetic ketoacidosis, but there could be superimposed infection and even meningitis now and that needs to be covered and then when she is stable, to consider spinal tap. Her CT scan was reviewed and did not show any clear-cut findings. There is a hypodensity in the pontine area and this could be artifactual. She could have something like central pontine myelinolysis, which could explain some of her symptoms. Her sodium is currently is not that low especially with diabetic ketoacidosis, but this is a consideration, getting an MRI scan would be useful. We will be getting an EEG now and she is on propofol because she has had altered mental status and some tonicity in her arms. At this point, hercervical CT scan showed degenerative disc disease, osteoarthritis, foraminal stenosis multiple levels and some central canal stenosis at C3-C4, but this did not explain her range of symptoms. So in sum at this point, she is going to be covered for both viral and bacterial meningitis. She is going to be metabolically managed, be getting an EEG to see if we need to add anticonvulsants in addition to the propofol. She will be getting an MRI scan in the near future. She is being hyperventilated and is naturally hyperventilated, but I would slowly bring down the blood pressure. As well, I am not sure of the etiology of her pupillary asymmetry, I did not see herniation on her ct scan- MRI scan will be useful, but it is possible that there is some element of increased intracranial pressure, I would not do an LP at this point, but I would cover her for meningitis. This will be assessed following her MRI scan. Thank you for sharing his case. [id number] #: [id number] LISA
[2017-11-15] MEDS ORDERED: NS 0.9% 500 ML* 500 ML IV ONE (20:30)
[2017-11-16] MEDS: Acyclovir IV(*) 500 MG in NS 0.9% 100 ML* 100 ML IVPB SCH ×3 (00:41→17:52)
[2017-11-16 00:46] LABS: EGFR Non-African American 42.8 (>60)
[2017-11-16] MEDS: Vancomycin(*) 1,000 MG in NS 0.9% 250 ML* 250 ML IVPB SCH ×2 (01:46→12:30)
[2017-11-16] MEDS ORDERED: Dextrose 50% Syringe 50 ML* 25 GM/50 ML SYRINGE IV PUSH PRN (02:30)
[2017-11-16] MEDS: Ampicillin IV* 2 GM in NS 0.9% 100 ML* 100 ML IVPB SCH ×5 (02:35→18:45)
[2017-11-16] MEDS: cefTRIAXone(*) 2 GM in NS 0.9% 100 ML* 100 ML IVPB SCH (02:35)
[2017-11-16] MEDS: Chlorhexidine MOUTHWASH 0.12%* 15 ML UDC TOPICAL SCH ×6 (03:26→21:23)
[2017-11-16] MEDS: KCL 20 MEQ/100 ML IVPREMIX* 20 MEQ/100 ML BAG IV SCH ×2 (03:26→05:38)
[2017-11-16 06:21] LABS: Hematocrit 28 % (35-47); Hemoglobin 9.5 g/dl (12.0-16.0); Mean Corpuscular HGB Conc 34 g/dl (31-36); Mean Corpuscular Hemoglobin 28 pg (27-31); Mean Corpuscular Volume 84 fL (80-97); Mean Platelet Volume 8.1 um3 (7.4-10.4); Platelet Count 178 10^3/ul (150-450); Red Blood Count 3.38 10^6/ul (4.00-5.40); Red Cell Distribution Width 13 % (10.5-15); White Blood Count 21.1 10^3/ul (3.5-10.8)
[2017-11-16 06:42] LABS: EGFR Non-African American 42.4 (>60)
[2017-11-16] MEDS: Midazolam IV for DRIP* 100 MG in NS 0.9% 100 ML* 80 ML IV SCH (07:35)
[2017-11-16] MEDS: Thiamine TAB* 100 MG TAB PO SCH (08:30)
[2017-11-16] MEDS: Famotidine IV* 10 MG/ML 2 ML (20 mg) IV SLOW PU SCH (08:30)
[2017-11-16] MEDS: Folic Acid TAB* 1 MG PO SCH (08:30)
--- NOTE | 2017-11-16 09:25 | ECHO ---
Patient: KAYLA GRAY [facility] Rec#: [id number] : 1960 Date: 11/16/2017 Age: 57y Height: 157.48 cm / 62.0 in Weight: 65.77 kg / 145.0 lbs Sex: F BSA: 1.67 Room#: [facility] Admit Date#: 11/15/2017 Type: Inpatient Referring: Colin Brice Reading: Nav Henson MD Cloth Measurer: Carolyn Guido RDCS CC: Forest Pagan MD Transthoracic Echocardiogram Indication: Cardiomyopathy BP: 98/58 HR: 80 Rhythm: NSR Findings History: DM, hypothyroidism, cardiomyopathy, HTN, ETOH use, smoker. Patient was sedated, intubated, and mechanically ventilated during this study. Technical Comments: The study quality is good. Completed at 0900. Left Ventricle: The left ventricular chamber size is normal. Mild concentric left ventricular hypertrophy is observed. Global left ventricular wall motion and contractility are within normal limits. There is normal left ventricular systolic function. The estimated ejection fraction is 55-60%. Normal left ventricular diastolic filling is observed. Left Atrium: The left atrial chamber size is normal. Right Ventricle: Moderator Band present. The right ventricular cavity size is normal. The right ventricular global systolic function is normal. Right Atrium: The right atrial cavity size is normal. Aortic Valve: The aortic valve is trileaflet. The aortic valve leaflets are mildly thickened. There is a trace of aortic regurgitation. There is no evidence of aortic stenosis. Mitral Valve: The mitral valve leaflets are mildly thickened. There is a trace of mitral regurgitation. There is no evidence of mitral stenosis. Tricuspid Valve: The tricuspid valve leaflets are normal. There is trace to mild tricuspid regurgitation. Unable to estimate the right ventricular systolic pressure. There is no tricuspid stenosis. Pulmonic Valve: The pulmonic valve appears normal. There is a trace pulmonic regurgitation. There is no pulmonic stenosis. Pericardium: There is no significant pericardial effusion. Aorta: There is no dilatation of the ascending aorta. There is no dilatation of the aortic arch. The aortic root is normal in size. Pulmonary Artery: The main pulmonary artery is not well visualized. Venous: Unable to accurately comment on the size collapsibility of the IVC as the patient in known to be on mechanical ventilation. Summary: There was not any prior study for comparison. Conclusions Mild concentric left ventricular hypertrophy is observed. Global left ventricular wall motion and contractility are within normal limits. There is normal left ventricular systolic function. The estimated ejection fraction is 55-60%. There is no evidence of aortic stenosis. There is a trace of mitral regurgitation. There is trace to mild tricuspid regurgitation. Unable to estimate the right ventricular systolic pressure. There is no significant pericardial effusion. Measurements Name Value Normal Range RVIDd (AP) 2D 2.8 cm (0.9 - 2.6) RVDdMajor (2D) 3.4 cm (2.2 - 4.4) RVAW (2D) 0.7 cm (0.2 - 0.5) RAd ISD 4CH 4.4 cm (3.4 - 4.9) RA (A4C)W 4.3 cm (2.9 - 4.6) IVSd (2D) 1.2 cm (0.6 - 1) LVPWd (2D) 1.2 cm (0.6 - 1) LVIDd (2D) 4 cm (3.6 - 5.4) LVIDs (2D) 2.6 cm - LV FS (2D) 35 % (25 - 45) Aortic Annulus 2 cm (1.4 - 2.6) Ao root diameter (2D) 3.1 cm (2.1 - 3.5) Ascending Ao 2.7 cm (2.1 - 3.4) Aortic arch 2.5 cm (1.8 - 3.4) LA dimension (AP) 2D 3.4 cm (2.3 - 3.8) LAd ISD 4CH 3.7 cm (2.9 - 5.3) LA ISD 4CH W 4.2 cm (2.5 - 4.5) Name Value Normal Range LA ESV SP 4CH (A/L) 40 ml - LA ESV SP 2CH (A/L) 64 ml - LA ESV BP (A/L) 67 ml - LA ESV BP (A/L) index 40 ml/m2 - LA ESV SP 4CH (MOD) 32 ml - LA ESV SP 2CH (MOD) 61 ml - Name Value Normal Range MV E-wave Vmax 0.97 m/sec - MV deceleration time 192.4 msec - MV A-wave Vmax 0.38 m/sec - MV E:A ratio 2.56 ratio - LV septal e' Vmax 0.07 m/sec - LV lateral e' Vmax 0.1 m/sec - LV E:e' septal ratio 13.86 ratio - LV E:e' lateral ratio 9.7 ratio - Name Value Normal Range AV Vmax 1.3 m/sec - AV VTI 22.33 cm - AV peak gradient 6.78 mmHg - AV mean gradient 3.4 mmHg - LVOT Vmax 0.92 m/sec - LVOT VTI 17.64 cm - LVOT peak gradient 3.38 mmHg - LVOT mean gradient 1.88 mmHg - SHILPA Vmax 0.6 m/sec - Name Value Normal Range TR Vmax 2.3 m/sec - TR peak gradient 21 mmHg - Name Value Normal Range PV Vmax 0.74 m/sec - PV peak gradient 2.19 mmHg -
--- NOTE | 2017-11-16 09:51 | PN ---
Subjective Date of Service: 11/16/17 Interval History: Neurology is following for confusion and concern for meningitis. Brief summary: Mrs. Ardon, is a 57-year-old poorly controlled diabetic mellitus type II who is alcohol dependent who presented to [facility] on 11/15/2017 with confusion. The history was obtained by Mr. Ardon who was at bedside. 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 But over the last few weeks, she has been slow in ambulating, fatigue, and no her usual self. She was always complaining of pain in her feet, neck, and low back. She is on oxycodone and Tramadol for pain control. Thursday morning, she was unable to get up and perform her usual tasks. She was taken to the ER where she was found to be in severe hyperglycemia and hyponatremia. Pt presented to the ED with hypertensive emergency and low grade fever. Subjective: She is intubated and sedation was turned off at 9:15 (Versed and propofol). She is not waking up as of this morning and does not follow verbal command. She had an uneventful night with no reported seizures overnight. She is on ceftriaxone, ampicillin, vancomycin, and Acyclovir. Thiamine 100 mg IV was administered on 11/15 and continued today. Objective Active Medications: Acetaminophen (Tylenol Adult Liq*) 650 mg PO Q4H PRN PRN Reason: FEVER Chlorhexidine Gluconate (Peridex Mouth Wash 0.12%*) 15 ml TOPICAL Q4H [facility] Last Admin: 11/16/17 05:43 Dose: 15 ml Dextrose (D50w Syringe 50 Ml*) 25 gm IV PUSH Q1H PRN PRN Reason: BG<60 Famotidine (Pepcid Iv*) 20 mg IV SLOW PU DAILY SHREE Last Admin: 11/16/17 08:30 Dose: 20 mg Folic Acid (Folvite Tab*) 1 mg PO DAILY SHREE Last Admin: 11/16/17 08:30 Dose: 1 mg Sodium Chloride (Ns 0.9% 1000 Ml*) 1,000 mls @ 125 mls/hr IV PER RATE SHREE Last Admin: 11/15/17 19:00 Dose: 125 mls/hr Propofol (Diprivan*) 100 mls @ 15.785 mls/hr IV .(Initial Rate) [facility]; Protocol Last Admin: 11/15/17 19:00 Dose: 15.785 mls/hr Midazolam HCl 100 mg/ Sodium (Chloride) 100 mls @ 5 mls/hr IV Q20H [facility]; Protocol Last Admin: 11/16/17 07:35 Dose: 5 mls/hr Vancomycin HCl 1,000 mg/ (Sodium Chloride) 250 mls @ 166.667 mls/hr IVPB Q12H [facility] Last Admin: 11/16/17 01:46 Dose: 166.667 mls/hr Ampicillin Sodium 2 gm/ Sodium (Chloride) 100 mls @ 200 mls/hr IVPB Q4H [facility] Last Admin: 11/16/17 05:43 Dose: 200 mls/hr Ceftriaxone Sodium 2 gm/ (Sodium Chloride) 100 mls @ 200 mls/hr IVPB Q12H [facility] Last Admin: 11/16/17 02:35 Dose: 200 mls/hr Acyclovir Sodium 500 mg/ (Sodium Chloride) 110 mls @ 110 mls/hr IVPB Q8H [facility] Last Admin: 11/16/17 07:19 Dose: 110 mls/hr Insulin Human Lispro (Humalog*) 0 units SUBCUT Q4H [facility]; Protocol Pharmacy Consult (Vancomycin Per Pharmacy*) 1 note FOLLOW UP .VANC PER PHARMACY [facility] Pharmacy Profile Note (Vancomycin Trough Check) 1 note FOLLOW UP 1130 ONE Stop: 11/17/17 11:31 Thiamine HCl (Vitamin B-1 Tab*) 100 mg PO DAILY [facility] Last Admin: 11/16/17 08:30 Dose: 100 mg Vital Signs 11/15/17 11/15/17 11/15/17 09:59 10:01 10:02 Temperature 101.1 F Pulse Rate 122 120 120 Respiratory 20 26 28 Rate Blood Pressure 205/133 205/133 (mmHg) O2 Sat by Pulse 92 100 100 Oximetry 11/15/17 11/15/17 11/15/17 10:08 10:18 10:34 Temperature 100.9 F 101.1 F Pulse Rate 122 121 Respiratory Rate Blood Pressure 194/100 233/110 201/108 (mmHg) O2 Sat by Pulse 99 100 Oximetry 11/15/17 11/15/17 11/15/17 10:36 10:43 10:44 Temperature 100.8 F Pulse Rate 116 114 Respiratory 24 22 Rate Blood Pressure 174/96 (mmHg) O2 Sat by Pulse 100 99 Oximetry 11/15/17 11/15/17 11/15/17 10:54 11:00 11:04 Temperature 100.6 F 100.6 F 100.6 F Pulse Rate 115 116 117 Respiratory Rate Blood Pressure 193/111 185/91 (mmHg) O2 Sat by Pulse 100 100 100 Oximetry 11/15/17 11/15/17 11/15/17 11:20 11:30 11:45 Temperature 100.2 F 100.6 F Pulse Rate 117 117 116 Respiratory 20 24 Rate Blood Pressure 150/90 177/102 193/111 (mmHg) O2 Sat by Pulse 96 100 100 Oximetry 11/15/17 11/15/17 11/15/17 12:00 12:01 12:15 Temperature 100.6 F 100.6 F 100.8 F Pulse Rate 111 116 Respiratory 27 Rate Blood Pressure 150/90 169/113 (mmHg) O2 Sat by Pulse 74 100 Oximetry 11/15/17 11/15/17 11/15/17 12:30 12:46 13:00 Temperature 101.3 F 101.5 F 101.8 F Pulse Rate 117 116 116 Respiratory 27 Rate Blood Pressure 144/100 171/92 164/96 (mmHg) O2 Sat by Pulse 100 100 100 Oximetry 11/15/17 11/15/17 11/15/17 13:15 13:30 13:45 Temperature 102.0 F 102.0 F 102.0 F Pulse Rate 115 112 110 Respiratory Rate Blood Pressure 135/65 125/55 127/63 (mmHg) O2 Sat by Pulse 100 100 100 Oximetry 11/15/17 11/15/17 11/15/17 14:00 14:15 14:30 Temperature 102.0 F 101.7 F 102.0 F Pulse Rate 110 111 113 Respiratory 23 30 Rate Blood Pressure 121/74 145/75 144/61 (mmHg) O2 Sat by Pulse 100 100 100 Oximetry 11/15/17 11/15/17 11/15/17 14:45 15:00 15:15 Temperature 102.0 F 102.0 F 101.8 F Pulse Rate 107 104 105 Respiratory 26 Rate Blood Pressure 125/60 123/61 127/63 (mmHg) O2 Sat by Pulse 100 100 100 Oximetry 11/15/17 11/15/17 11/15/17 15:30 15:45 16:00 Temperature 101.5 F 101.3 F 101.1 F Pulse Rate 107 107 106 Respiratory 24 Rate Blood Pressure 141/67 143/64 142/67 (mmHg) O2 Sat by Pulse 100 100 100 Oximetry 11/15/17 11/15/17 11/15/17 16:15 16:30 16:45 Temperature 100.9 F 100.8 F 100.8 F Pulse Rate 104 102 102 Respiratory Rate Blood Pressure 137/66 132/63 135/65 (mmHg) O2 Sat by Pulse 100 100 100 Oximetry 11/15/17 11/15/17 11/15/17 17:00 17:15 17:30 Temperature 100.8 F 100.6 F 100.6 F Pulse Rate 104 106 104 Respiratory 24 Rate Blood Pressure 135/64 108/69 104/49 (mmHg) O2 Sat by Pulse 100 100 100 Oximetry 11/15/17 11/15/17 11/15/17 17:45 18:00 18:15 Temperature 100.2 F 99.9 F 99.7 F Pulse Rate 102 97 96 Respiratory 23 Rate Blood Pressure 114/60 100/58 102/55 (mmHg) O2 Sat by Pulse 100 100 100 Oximetry 11/15/17 11/15/17 11/15/17 18:30 18:45 19:00 Temperature 99.3 F 99.3 F 99.3 F Pulse Rate 100 95 77 Respiratory 14 Rate Blood Pressure 128/70 125/65 116/67 (mmHg) O2 Sat by Pulse 100 100 100 Oximetry 11/15/17 11/15/17 11/15/17 19:15 19:30 20:00 Temperature 99.1 F 99.1 F 98.8 F Pulse Rate 90 89 95 Respiratory 14 Rate Blood Pressure 123/66 109/62 122/68 (mmHg) O2 Sat by Pulse 100 100 100 Oximetry 11/15/17 11/15/17 11/15/17 20:15 20:30 20:45 Temperature 98.6 F 98.4 F 98.2 F Pulse Rate 95 92 91 Respiratory Rate Blood Pressure 126/69 119/63 118/64 (mmHg) O2 Sat by Pulse 100 100 100 Oximetry 11/15/17 11/15/17 11/15/17 21:00 21:15 21:30 Temperature 97.9 F 97.7 F 97.5 F Pulse Rate 90 89 83 Respiratory 14 Rate Blood Pressure 120/65 116/64 112/64 (mmHg) O2 Sat by Pulse 100 100 100 Oximetry 11/15/17 11/15/17 11/15/17 21:45 22:00 22:15 Temperature 97.3 F 97.2 F 97.0 F Pulse Rate 86 83 81 Respiratory 14 Rate Blood Pressure 118/67 108/63 106/64 (mmHg) O2 Sat by Pulse 100 100 100 Oximetry 11/15/17 11/15/17 11/15/17 22:30 22:45 23:00 Temperature 96.8 F 96.6 F 96.4 F Pulse Rate 80 78 77 Respiratory 14 Rate Blood Pressure 104/62 104/61 98/60 (mmHg) O2 Sat by Pulse 100 100 100 Oximetry 11/15/17 11/15/17 11/15/17 23:15 23:30 23:45 Temperature 96.3 F 96.1 F 95.9 F Pulse Rate 77 77 75 Respiratory Rate Blood Pressure 104/61 100/60 99/60 (mmHg) O2 Sat by Pulse 100 100 100 Oximetry 11/15/17 11/16/17 11/16/17 23:59 00:00 00:15 Temperature 95.7 F 95.7 F Pulse Rate 75 73 Respiratory 14 Rate Blood Pressure 99/59 100/61 (mmHg) O2 Sat by Pulse 100 100 Oximetry 11/16/17 11/16/17 11/16/17 00:30 01:00 01:30 Temperature 95.5 F 95.4 F 95.4 F Pulse Rate 72 71 73 Respiratory 14 Rate Blood Pressure 100/59 99/61 99/60 (mmHg) O2 Sat by Pulse 100 100 100 Oximetry 11/16/17 11/16/17 11/16/17 02:00 02:30 03:00 Temperature 95.2 F 95.2 F 95.2 F Pulse Rate 74 74 80 Respiratory 14 14 Rate Blood Pressure 99/60 102/61 (mmHg) O2 Sat by Pulse 100 100 100 Oximetry 11/16/17 11/16/17 11/16/17 03:01 03:30 04:00 Temperature 95.0 F 95.0 F 95.5 F Pulse Rate 81 75 74 Respiratory 14 Rate Blood Pressure 136/77 120/68 105/62 (mmHg) O2 Sat by Pulse 100 100 100 Oximetry 11/16/17 11/16/17 11/16/17 04:30 05:00 05:30 Temperature 96.1 F 96.6 F 97.0 F Pulse Rate 74 74 75 Respiratory 14 Rate Blood Pressure 103/60 99/59 98/58 (mmHg) O2 Sat by Pulse 100 100 99 Oximetry 11/16/17 11/16/17 11/16/17 06:00 06:30 07:00 Temperature 97.3 F 97.9 F 98.2 F Pulse Rate 76 77 77 Respiratory 21 Rate Blood Pressure 99/57 99/59 100/59 (mmHg) O2 Sat by Pulse 99 99 99 Oximetry 11/16/17 11/16/17 11/16/17 07:30 07:35 08:00 Temperature 98.6 F 98.8 F Pulse Rate 79 81 Respiratory 21 20 Rate Blood Pressure 111/64 101/59 (mmHg) O2 Sat by Pulse 100 99 Oximetry 11/16/17 08:30 Temperature 99.1 F Pulse Rate 86 Respiratory Rate Blood Pressure 110/60 (mmHg) O2 Sat by Pulse 100 Oximetry Oxygen Devices in Use Now: None, Mechanical Ventilator Neurology Exam: General: Ill appearing female who is unresponsive due to being intubated HEENT: Normocephelic/atraumatic Neck: Supple Chest: Clear to auscultation bilaterally Cardiovascular: Regular rate and rhythm without murmurs, rubs, gallops Extremities: dry ulceration in the feet between web spaces right>left Neurological Findings: Mental status: intubated female who does not wake to verbal command. She did grimace to minimal noxious stimuli to the distal upper extremities. Cannot assess speech or language functions. GCS 4-5t grimaced to distal noxious stimuli. Cranial Nerve: PEERL, corneal intact. No facial droop. No nystagmus. Gag is present. Turned head towards the right to nasal stimulation. Motor: she had mild extensor response to distal noxious stimuli. Reduced tone throughout Sensation: does not localize to pain Deep Tendon Reflex: trace throughout with absent at the ankles. Mute plantar response Coordination: n/a Gait: n/a Result Diagrams: 11/16/17 06:05 11/16/17 06:05 Additional Lab and Data: CSF analysis: WBC 17 CSF glucose: 327 CSF Protein: 56 UA tox -negative Serum WBC 21 Microbiology and Other Data: Microbiology 11/15/17 17:51 CSF Gram Stain (Tube 3) - Final Cerebral Spinal Fluid 11/15/17 11:31 Nasal Screen MRSA (PCR) - Final Nasal Mrsa Not Detected Diagnostic Imaging: CT head without contrast: no acute infarction but I agree that there is an area of hypodensity in the david which can be artifact or CPM. Assessment/Plan Mrs. Ardon is a 57-year-old critically ill female who presented with confusion and stiffness of the extremities. She was found to have low grade fevers, hyperglycemia, hypertensive emergency and is being treated for possible meningitis. 1. Acute encephalopathy- multifactorial and could be related to a metabolic, infectious, or due to demyelinating disease. Blood glucose is better controlled. - CSF analysis is not consistent with bacterial meningitis (negative growth at 24 hours). Defer duration of antibiotic therapy to the primary team or ID specialist. - Continue Acyclovir until the HSV PCR is back - MRI brain without contrast today to look for CPM given her history of alcohol abuse, hyponatremia (which was not significantly low and there was no over correction during the hospitalization) - Minimize the use of Versed. If she is agitated off sedation, then use propofol instead. - Please order an EEG to evaluate for epileptiform abnormalities while off sedation. - Obtain the following labs: Ammonia, B12, and TSH levels - Continue supportive care and neuro checks every 1 hour 2. Hypertensive emergency and DKA- controlled 3. Hx of Alcohol dependency- Monitor for withdrawal. Give thiamine 500 mg IV x 1 then continue current dose of 100 mg daily. Critical care time spent: 40 minutes reviewing the electronic medical records, obtaining further history from family at bedside, and discussing the treatment plan as mentioned above. Prognosis is guarded.
[2017-11-16] MEDS: Insulin LISPRO* 1 UNITS UNIT SUBCUT SCH ×4 (10:31→22:45)
[2017-11-16] MEDS: NS 0.9% 1000 ML* 1,000 ML IV SCH (10:35)
--- NOTE | 2017-11-16 13:51 | CONS ---
CONSULTATION REPORT: DATE OF CONSULT: 11/16/17 REQUESTING PHYSICIAN: Dr. Rakan Garcia CONSULTING SERVICE: Infectious Disease. REASON FOR CONSULTATION: Encephalopathy. IMPRESSION: 1. Encephalopathy present on admission; encephalitis given mild cerebrospinal fluid leukocytosis and initial fever. Differential diagnosis for infections does include herpes simplex virus 1 encephalitis, varicella encephalitis. At this time, enteroviruses including [place] virus, [place] virus, I agree that as far as bacterial organisms go, still is a consideration although white cell count is a bit low, cryptococcal antigen was added. She is mildly immunocompromised by diabetes so that is a consideration, parameningeal focus including epidural abscess (she has had a chronic neck pain, but then a couple of weeks of worsening severe neck pain). The usual cause of bacterial meningitis ruled out by the white cell count of 18, the spinal fluid and negative spinal fluid cultures. I would not expect her to be the subtended from Lyme meningitis. 2. Diabetes with diabetic ketoacidosis. 3. Cardiomyopathy. RECOMMENDATION: Continue valacyclovir, ampicillin, ceftriaxone to cover various possible causes of her CSF pleocytosis and encephalitis. We will continue the vancomycin for now until we are sure there is no epidural abscess. We will add [facility] Encephalitis Panel, which will include testing for varicella, Pow[place] virus, and West Nile virus. HISTORY OF PRESENT ILLNESS: This is a 57-year-old woman with diabetes and alcohol abuse, admitted with sudden onset of loss of consciousness. She cannot provide any history, which was obtained instead from review of the medical records, discussion with Dr. Garcia, discussion with the patient's who notes she had been in her usual state of health, which has recently included bilateral lower extremity edema, worsening neck pain, and malaise and then a sudden onset Thursday night of loss of consciousness shortly after some vomiting. She was brought by ambulance, a brain CT showed no acute abnormality. Cervical spine CT showed spondylolisthesis at C3-C4, moderate narrowing at central canal, C3-C4. She was initially febrile to 39 on the day of admission. No fever since then. She is on antibiotics as described above. She had spinal fluid studies as noted above. Her white blood cell count, 19 to 16, today it was 21, creatinine is 1.3. Spinal fluid did show 17 white cell, glucose 327, protein 56. Urinalysis showed blood and red cells, no white cells. No leukocyte esterase or nitrites. Chest x-ray showed no active disease. PAST MEDICAL HISTORY: 1. Type 2 diabetes. 2. Alcohol abuse. 3. Hypothyroidism. 4. Cardiomyopathy. 5. Hypertension. 6. Chronic back pain. MEDICATIONS: 1. Tylenol. 2. Ampicillin 2 g every 4 hours. 3. Chlorhexidine. 4. Dextrose. 5. Famotidine. 6. Folic acid. 7. Insulin lispro. 8. Midazolam. 9. Propofol infusion, which was held this morning. 10. Ceftriaxone 2 g every 12 hours. 11. Vancomycin 1 gm every 12 hours. 12. Acyclovir 500 mg every 8 hours. ALLERGIES: No known drug allergies. FAMILY HISTORY: Per report, includes cardiac disease in mother. SOCIAL HISTORY: She lives with her . 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 She has no travel or sick contacts. They have pet dogs. No little kids around. She does not spend a lot of time outdoors and no known tick or mosquito exposure. REVIEW OF SYSTEMS: Unobtainable due to the fact that she is intubated. PHYSICAL EXAM: Vital Signs: Temperature 37.3, heart rate 97, respiratory 20, blood pressure 140/75, oxygen saturation 100% on room air. In general, she is not diaphoretic, does not appear in distress. Neurologic: She does not open her eyes. She does not follow commands or answer questions. HEENT: There is no conjunctival hemorrhage. Oropharynx without thrush. Neck: Supple without mass. Heart: Regular rate and rhythm without murmurs, rubs or gallops. Lungs: Clear to auscultation bilaterally. Abdomen: Soft, nontender, nondistended. Bowel sounds present. Skin: There is no rash or splinter hemorrhage. There are eschars between the first and second toes on both feet without surrounding erythema. Lymph Nodes: There is no cervical, supraclavicular, inguinal, axillary, epitrochlear or lymphadenopathy. DIAGNOSTIC STUDIES/LAB DATA: White blood cell count 21, hemoglobin 9, platelets 178. MCV 84, Creatinine is 1.3. Please see impressions and recommendations on above, which I have discussed with Jose. Thank you for asking me to see Ms. Ardon in consultation. [id number]/[facility] #: [id number] [facility] CENTERJeimy
[2017-11-16] MEDS: Propofol* 100 ML IV SCH ×2 (14:33→22:17)
[2017-11-16] MEDS ORDERED: cefTRIAXone(*) 2 GM in NS 0.9% 100 ML* 100 ML IVPB SCH (15:00)
[2017-11-16] MEDS ORDERED: Gadoteridol* (CONTRAST) 279.3 MG/ML 10 ML IV ONE (15:41)
--- NOTE | 2017-11-16 17:03 | RAD ---
Indication: Demyelination, confusion and fever. Sagittal T1, T2, STIR, axial T1 and T2-weighted images of the thoracic spine were obtained. 15 mL of ProHance was injected and postcontrast sagittal and axial T1-weighted images were repeated. The vertebral bodies appear normal in height. Normal bone marrow signal is noted. The thoracic spinal cord demonstrates no evidence of abnormal signal. No evidence of epidural mass to suggest an abscess is noted. The postcontrast images demonstrate no evidence of abnormally enhancing lesions. There is degenerative disc disease at T10-T11. Minimal broad-based protrusion is noted. Disc desiccation is noted in the remainder of the upper thoracic spine. No focal protrusion is identified. The lung johnson demonstrate small bilateral pleural effusions with likely some atelectasis in the lung bases posteriorly. IMPRESSION: No evidence of enhancing lesions or epidural masses are identified. Degenerative disc disease at T10-T11. Small bilateral pleural effusions are noted.
--- NOTE | 2017-11-16 17:21 | RAD ---
Indication: Confusion, fever and anisocoria Sagittal and axial T1, axial T2, FLAIR, diffusion and susceptibility weighted images of the brain were obtained. 15 mL of ProHance was injected and postcontrast axial, coronal and sagittal T1-weighted images were obtained. Ventricular structures are midline. No midline shift is noted. Extra-axial spaces are prominent. There is acute area of restriction of diffusion involving the right posterior occipital lobe. This is consistent with acute infarct as this is decreased in signal on the ADC map. There may be some minimal postcontrast enhancement in the area of infarct.. Adjacent to the LEFT falx there is a small area of susceptibility artifact noted on the susceptibility weighted images. This appears to be slightly increased in signal on T1-weighted images and is thickened and hyperdense on the prior CT. This may represent a small subdural hematoma. No other midline shift is noted. No other enhancing lesions are identified. Susceptibility artifact is noted in the david which may be evidence of prior hemorrhage. IMPRESSION: Likely area of acute infarct in the right posterior parietal lobe. Findings are suggestive of a small subdural hematoma just adjacent to the falx on the left posteriorly. There may be evidence of prior hemosiderin in the david. Findings were discussed with Dr. Garcia at 1717 hours
--- NOTE | 2017-11-16 17:31 | RAD ---
Indication: Confusion and fever. Sagittal T1, T2, STIR, axial gradient echo and T2-weighted images of the cervical spine were obtained. 15 mL of ProHance was injected and sagittal and axial T1-weighted pre and postcontrast images were obtained. The vertebral bodies appear normal in height. There is grade 1 spondylolisthesis of C3 on 4. With endplate changes and broad-based protrusion. No evidence of abnormal signal is noted in the cervical spinal cord. No evidence of epidural masses are noted. No evidence of abnormal enhancement is noted. There may be some mild spinal stenosis at C3-C4. At C6-C7 spondylitic ridge flattens the thecal sac. No foraminal stenosis is noted. No evidence of abnormally enhancing masses noted on the postcontrast study. IMPRESSION: Grade 1 spondylolisthesis of C3 on 4. Spinal stenosis is noted at C3-C4. Degenerative disc disease at C5-C6 and C6-C7. No evidence of epidural masses are identified.
--- NOTE | 2017-11-16 17:54 | PN ---
Date of Service: 11/16/17 Critical Care Services: MRI today shows right-sided parietal stroke and small left subdural hematoma. DKA has resolved (AG down to 6), and is off insulin drip. Vital Signs: Temp Pulse Resp BP SpO2 FiO2 98.6 F 95 10 163/82 100 40 Physical Exam: Gen:Unresponsive (on propofol) HEENT:No facial asymmetry. Pupils midposition and reactive. Lungs: Clear Abdomen:Not distended. Extremities:no cyanosis or edema Fluid Balance (Past 24 Hours): 11/16/17 11/17/17 06:59 06:59 Intake Total 7774.0 1822 Output Total 3647 285 Balance 4127.0 1537 Weight 160 lb 160 lb Intake: IV Fluids 5542 96 ABX - AMPICILLIN 63 ABX - VANCOMYCIN 33 ANTIVIRAL - ACYCLOVIR 1 Banana Bag 1042 KCl 465 NS (0.9%) 2034 IVPB 1888 1695 ABX - AMPICILLIN 116 289 ABX - CEFTRIAXONE 110 ABX - VANCOMYCIN 298 269 ABX - ZOSYN 110 ANTIVIRAL - ACYCLOVIR 119 KCl 109 NS (0.9%) 1135 1028 Medicated IV 344.0 31 CC - Insulin 60.8 CC - Propofol/Diprivan 206 31 Versed 77.2 Output: Urine 50 Stewart 1647 235 Residual 2000 Stewart 16 Fr Temperature 2000 Probe Other: Date of Last Bowel 11/16 Movement # Bowel Movements 2 Estimated Stool Amount Small Labs: 11/15/17 11/15/17 11/15/17 17:51 17:51 18:04 WBC RBC Hgb Hct MCV MCH MCHC RDW Plt Count MPV Sodium 130 L Potassium 2.9 L Chloride 97 L Carbon Dioxide 23 Anion Gap 10 BUN 38 H Creatinine 1.22 H Est GFR ( Amer) 55.2 Est GFR (Non-Af Amer) 45.6 BUN/Creatinine Ratio 31.1 H Glucose 265 H POC Glucose (mg/dL) Lactic Acid Calcium 8.0 L Phosphorus 1.9 L Total Creatine Kinase CK-MB (CK-2) Troponin I Fluid Source Cerebral spinal Fluid Volume 1.5 Fluid Color Colorless Fluid Appearance Clear Fluid WBC 17 Fluid RBC 20 Fluid Tot Cell Count 100 Fluid Neutrophils 75 Fluid Lymphocytes 11 Fluid Monocytes 14 Fluid Cell Count Rvw By CSF Cell Count Tube # 4 CSF Glucose 327 H CSF Total Protein 56 H 11/16/17 11/16/17 11/16/17 06:05 06:05 06:05 WBC 21.1 H RBC 3.38 L Hgb 9.5 L Hct 28 L MCV 84 MCH 28 MCHC 34 RDW 13 Plt Count 178 MPV 8.1 Sodium 132 L Potassium 4.8 Chloride 104 Carbon Dioxide 20 L Anion Gap 8 BUN 41 Creatinine 1.30 Glucose 195 H POC Glucose (mg/dL) Lactic Acid 0.5 Calcium 7.2 L Phosphorus Total Creatine Kinase 292 H CK-MB (CK-2) Troponin I Fluid Source Fluid Volume Fluid Color Fluid Appearance Fluid WBC Fluid RBC Fluid Tot Cell Count Fluid Neutrophils Fluid Lymphocytes Fluid Monocytes Fluid Cell Count Rvw By CSF Cell Count Tube # CSF Glucose CSF Total Protein Studies: MRI with contrast Nutrition: None Impression: Acute ischemic stroke right parietal region - ? hypotension as predisposing cause. Very small left subdural hematoma probably of little or no clinical significance. Plan: 1. D/C all antibiotics, 2. CT scan with contrast tomorrow. 3. Start tube feedings tomorrow. 4. Wean when feasible. Neurology service is actively following this patient. Critical Care Time: 55 minutes
[2017-11-16] MEDS ORDERED: NS 0.9% 1000 ML* 1,000 ML IV SCH (18:18)
[2017-11-16] MEDS: Heparin VIAL(*) 5000 UNITS/ML VIAL (FIVE THOUSAND) SUBCUT SCH (21:23)
--- NOTE | 2017-11-16 23:10 | EEG ---
ELECTROENCEPHALOGRAPHY: DATE OF STUDY: 11/15/17 - ROOM #ICU-07 DATE OF DICTATION: 11/16/17 PATIENT OF: Dr. Brice. HISTORY: This is a 57-year-old woman being evaluated for an encephalopathy, now intubated on propofol. She has generalized weakness and some stiffening in her extremities. Study was done to evaluate for possible seizures. MEDICATIONS: Include propofol. Antibiotics are also being given but is not listed in EEG note. INTERPRETATION: With the patient intubated on propofol, background cerebral activity consists of moderate amplitude, diffuse delta, theta, and beta range frequencies. No focal abnormalities or major asymmetries of background are noted. IMPRESSION: This sedated EEG shows no epileptiform potentials or subclinical seizures or major asymmetries of background. [id number]/[facility] #: [id number] M[facility] IMOGEN[facility] BASSETT HOSPITALJeimy
[2017-11-17] MEDS: Chlorhexidine MOUTHWASH 0.12%* 15 ML UDC TOPICAL SCH ×6 (02:25→21:21)
[2017-11-17] MEDS: Insulin LISPRO* 1 UNITS UNIT SUBCUT SCH ×6 (02:33→22:59)
[2017-11-17 06:21] LABS: Hematocrit 34 % (35-47); Hemoglobin 11.1 g/dl (12.0-16.0); Mean Corpuscular HGB Conc 33 g/dl (31-36); Mean Corpuscular Hemoglobin 28 pg (27-31); Mean Corpuscular Volume 85 fL (80-97); Mean Platelet Volume 8.5 um3 (7.4-10.4); Platelet Count 205 10^3/ul (150-450); Red Blood Count 3.94 10^6/ul (4.00-5.40); Red Cell Distribution Width 13 % (10.5-15); White Blood Count 29.8 10^3/ul (3.5-10.8)
[2017-11-17 06:22] LABS: ABS Basophils 0.1 10^3/ul (0-0.2); ABS Eosinophils 0 10^3/ul (0-0.6); ABS Lymphocytes 0.7 10^3/ul (1.0-4.8); ABS Monocytes 2.1 10^3/ul (0-0.8); ABS Nucleated RBC 0 10^3/ul; Eosinophil % 0 % (0-6); Lymphocyte % 2.2 % (25-47); Nucleated Red Blood Cells % 0
[2017-11-17 06:38] LABS: EGFR Non-African American 40.6 (>60)
[2017-11-17] MEDS: Famotidine IV* 10 MG/ML 2 ML (20 mg) IV SLOW PU SCH (08:09)
[2017-11-17] MEDS: Heparin VIAL(*) 5000 UNITS/ML VIAL (FIVE THOUSAND) SUBCUT SCH ×2 (08:09→21:21)
[2017-11-17] MEDS: Folic Acid TAB* 1 MG PO SCH (08:09)
[2017-11-17] MEDS: Thiamine TAB* 100 MG TAB PO SCH (08:09)
[2017-11-17 10:46] LABS: EGFR Non-African American 44.3 (>60)
[2017-11-17] MEDS ORDERED: Vancomycin Trough Check NOTE FOLLOW UP ONE (11:30)
[2017-11-17] MEDS: Propofol* 100 ML IV SCH ×2 (12:01→23:48)
--- NOTE | 2017-11-17 12:04 | RAD ---
INDICATION: Acute stroke. COMPARISON: Comparison is made with a prior CT of the brain from November 15, 2017 and an MRI of the brain from November 16, 2017. TECHNIQUE: Contiguous axial sections of the brain were obtained from the skull base to the vertex without contrast. FINDINGS: The ventricles and cisterns appear to be within normal limits. There are new focal areas of decreased attenuation present in the posterior right parietal lobe involving the cortex and subcortical white matter which are not seen on the prior CT study although correspond to the areas of restricted diffusion and T2 hyperintensity on the prior MRI of the brain. No hemorrhage is seen. Again note is made of a very small subdural hematoma along the posterior falx measuring 2 mm in thickness which is slightly less prominent than on the prior CT study. No significant focal osseous abnormality is seen. The visualized portion of the paranasal sinuses and mastoid air cells appear clear. IMPRESSION: 1. EVOLVING NONHEMORRHAGIC INFARCT IN THE POSTERIOR RIGHT PARIETAL LOBE. 2. SMALL SUBDURAL HEMATOMA PRESENT ALONG THE POSTERIOR FALX SLIGHTLY DECREASED IN SIZE.
--- NOTE | 2017-11-17 13:13 | PN ---
Subjective Date of Service: 11/17/17 Interval History: No reported seizure activity. She is moving most extremities less on the left upper extremity. She is off Versed and weaning off propofol. Objective Active Medications: Acetaminophen (Tylenol Adult Liq*) 650 mg PO Q4H PRN PRN Reason: FEVER Chlorhexidine Gluconate (Peridex Mouth Wash 0.12%*) 15 ml TOPICAL Q4H [facility] Last Admin: 11/17/17 08:41 Dose: 15 ml Dextrose (D50w Syringe 50 Ml*) 25 gm IV PUSH Q1H PRN PRN Reason: BG<60 Famotidine (Pepcid Tab*) 20 mg .SEE ORDER DAILY [facility] Folic Acid (Folvite Tab*) 1 mg PO DAILY [facility] Last Admin: 11/17/17 08:09 Dose: 1 mg Heparin Sodium (Porcine) (Heparin Vial(*)) 5,000 units SUBCUT Q12HR [facility] Last Admin: 11/17/17 08:09 Dose: 5,000 units Propofol (Diprivan*) 100 mls @ 15.785 mls/hr IV .(Initial Rate) [facility]; Protocol Last Admin: 11/17/17 12:01 Dose: 15.785 mls/hr Sodium Chloride (Ns 0.9% 1000 Ml*) 1,000 mls @ 12 mls/hr IV PER RATE [facility] Last Admin: 11/16/17 22:18 Dose: 12 mls/hr Insulin Human Lispro (Humalog*) 0 units SUBCUT Q4H [facility]; Protocol Last Admin: 11/17/17 08:40 Dose: 4 units Metoprolol Tartrate (Lopressor Iv*) 10 mg IV Q6H PRN PRN Reason: BLOOD PRESSURE Thiamine HCl (Vitamin B-1 Tab*) 100 mg PO DAILY [facility] Last Admin: 11/17/17 08:09 Dose: 100 mg Vital Signs - 12 hr Temp Pulse Resp BP Pulse Ox 11/17/17 10:30 99.3 F 95 154/76 100 11/17/17 10:00 99.3 F 97 14 150/77 100 11/17/17 09:30 99.3 F 97 145/75 100 11/17/17 09:00 99.1 F 95 14 152/80 100 11/17/17 08:30 99.0 F 96 157/80 100 08/21/18 08:00 99.1 F 100 25 146/80 100 11/17/17 07:30 99.0 F 101 153/81 100 11/17/17 07:00 99.0 F 98 150/75 100 11/17/17 06:30 99.0 F 100 153/80 100 11/17/17 06:00 98.8 F 95 14 154/79 100 11/17/17 05:30 98.6 F 99 149/80 100 11/17/17 05:00 98.8 F 97 18 157/81 100 11/17/17 04:30 99.0 F 91 146/76 100 11/17/17 04:00 99.0 F 93 153/78 100 11/17/17 03:53 18 11/17/17 03:30 98.8 F 96 141/78 100 11/17/17 03:01 98.8 F 98 162/81 100 11/17/17 03:00 98.6 F 97 18 100 11/17/17 02:30 98.6 F 89 127/64 100 11/17/17 02:00 98.6 F 87 14 131/69 100 11/17/17 01:30 98.6 F 85 128/68 100 Oxygen Devices in Use Now: Mechanical Ventilator Neurology Exam: General: Ill appearing female in no acute distress. HEENT: Normocephelic/atraumstic, sclera anicteric, mucous membranes moist Neck: Supple Chest: Clear to auscultation bilaterally Cardiovascular: Regular rate and rhythm without murmurs, rubs, gallops Abdomen: Soft, nontender/nondistended Extremities: No clubing, cyanosis, or edema Neurological Findings: Mental Status: Patient intubated. Sedation held for 3 minutes prior to examining. Patient does wake spontaneously. Cranial Nerves: Pupils were equal, round, and reactive with constriction from 4 mm to 2 mm. Oculocephalic reflex intact. Corneal reflexes intact. Grimace to nasal stimuli was symmetric. Gag present. Motor: Bulk and tone were normal throughout. Patient withdrew from noxious stimuli in all extremities, but less on the left upper extremity. She has external rotation of the left lower extremities. Sensory: Patient localized noxious stimuli in all four extremities. Reflexes: 2+ throughout the upper and lower extremities with down going toes bilaterally. Coordination: Could not be assessed due to mental status. Gait: Could not be assessed due to mental status. Result Diagrams: 11/17/17 06:07 11/17/17 09:56 Additional Lab and Data: CSF analysis: WBC 17 CSF glucose: 327 CSF Protein: 56 UA tox -negative Serum WBC 21 Microbiology and Other Data: Microbiology 11/15/17 17:51 CSF Gram Stain (Tube 3) - Final Cerebral Spinal Fluid 11/15/17 11:31 Nasal Screen MRSA (PCR) - Final Nasal Mrsa Not Detected Diagnostic Imaging: CT head without contrast: no acute infarction but I agree that there is an area of hypodensity in the david which can be artifact or CPM. MRI brain without contrast completed on 11/16/2017: right parietal and occipital lobe infarction. She has mild subdural hematoma near the falx. CT head without contrast completed on 11/17/2017: right parietal infarction, non -hemorrhagic with resolving SDH. Assessment/Plan 1. Acute right MCA-ELECTORAL OFFICER vascular territory infarction- This is in a watershed distribution. Hypotension may have caused this stroke. We will need further intra and extracranial vascular testing once she gets better. Continue to hold aspirin for now until the complete resolution of the SDH ( which can be barely seen on CT). Repeat CT head in 24 hours. Keep SBP between 120->160 mmHg Will need rehabilitation PT/OT/MANAGER REIMBURSEMENT once extubated. Please make sure she has a swallow evaluation done before giving her any PO intake. 2. Acute metabolic encephalopathy- metabolic state has resolved. I expect her to start waking up once propofol is discontinued. Hopefully she can be extubated 3. Leukocytosis- defer to the primary team. She has no CSF infection. 4. Hx of Alcohol dependency- Monitor for withdrawal. Give thiamine 500 mg IV x 1 then continue current dose of 100 mg daily. I will continue to follow. Time spent: 30 minutes reviewing the electronic medical records, obtaining further history from family at bedside, and discussing the treatment plan as mentioned above. Prognosis is guarded.
[2017-11-17 15:47] LABS: CSF VDRL Negative (Negative)
--- NOTE | 2017-11-17 20:18 | PN ---
Progress Note - Progress Note Date of Service: 11/17/17 Note: Escalating WBCs, afebrile, no identified infectious burden. Reviewed w/ P MD Jose chlorine cell tender. Check UA, pCXR, & blood CXs.
--- NOTE | 2017-11-17 20:47 | PN ---
Date of Service: 11/17/17 Critical Care Services: Patient with right parietal stroke (ischemic) and small left subdural hematoma. Off sedation today and eyes open but does not localize to sound or pain. Vital Signs: Temp Pulse Resp BP SpO2 FiO2 99.9 F 102 10 165/103 100 40 Physical Exam: Gen:Unresponsive (off propofol) HEENT:eyes open spontaneously. Pupils small but reactive Lungs: no crackles or wheezes Cardiac:Reg rhythm Extremities:No cyanosis or edema Neuro: Spontaneous limb movements but does not localize to pain. No focality to movements. Fluid Balance (Past 24 Hours): 11/16/17 11/17/17 06:59 06:59 Intake Total 7774.0 2698 Output Total 3647 925 Balance 4127.0 1773 Weight 160 lb 154 lb Intake: IV Fluids 5542 735 ABX - AMPICILLIN 63 ABX - VANCOMYCIN 33 ANTIVIRAL - ACYCLOVIR 1 Banana Bag 1042 KCl 465 NS (0.9%) 2034 639 IVPB 1888 1805 ABX - AMPICILLIN 116 289 ABX - CEFTRIAXONE 110 ABX - VANCOMYCIN 298 269 ABX - ZOSYN 110 ANTIVIRAL - ACYCLOVIR 119 KCl 109 NS (0.9%) 1135 1138 Medicated IV 344.0 158 CC - Insulin 60.8 CC - Propofol/Diprivan 206 158 Versed 77.2 Output: Urine 50 Stewart 1647 875 Residual 2000 Stewart 16 Fr Temperature 2000 Probe Other: Date of Last Bowel 11/16 Movement # Bowel Movements 2 Estimated Stool Amount Small Labs: 11/17/17 11/17/17 11/17/17 06:00 06:07 06:07 WBC 29.8 RBC 3.94 L Hgb 11.1 L Hct 34 L MCV 85 MCH 28 MCHC 33 RDW 13 Plt Count 205 Sodium 135 Potassium 4.4 Chloride 107 Carbon Dioxide 18 L Anion Gap 10 BUN 42 H Creatinine 1.35 H Glucose 254 H POC Glucose (mg/dL) Calcium 7.4 L Total Bilirubin AST ALT Alkaline Phosphatase Ammonia 37 Total Protein Albumin Globulin Albumin/Globulin Ratio CSF VDRL CSF Cryptococcus Ag Vancomycin Trough 11/17/17 11/17/17 11/17/17 06:12 08:32 09:56 Sodium 139 Potassium 3.9 Chloride 109 Carbon Dioxide 22 Anion Gap 8 BUN 40 H Creatinine 1.25 H Glucose 176 H POC Glucose (mg/dL) 236 H 208 H Calcium 7.4 L Total Bilirubin 0.20 AST 21 ALT 17 Alkaline Phosphatase 76 Ammonia Total Protein 4.4 L Albumin 2.2 L Globulin 2.2 Studies: Head CT - Non-hemorrhagic infarct right posterior parietal lobe. Small left subdural, decreasing in size. Nutrition: None Impression: Ischemic stroke right posterior parietal lobe with resolving 9small) left subdural hematoma. Patient is clinically stable and there are no overt signs of sepsis, but degree of leukocytosis is disturbing. Plan: 1. Search for infection with cultures, CXR, etc. Will not use empiric antibiotics for now. 2. Enteral nutrition. 3. ASA at 81 mg daily. Neurology service following. Critical Care Time: 55 minutes
[2017-11-17 21:44] LABS: Urine Appearance Cloudy; Urine Blood 3+ (Negative); Urine Color Yellow; Urine Ketones Trace (Negative); Urine Protein 2+(100 mg/dL) (Negative); Urine Red Blood Cell 3+(>10/hpf) (Absent); Urine Specific Gravity 1.016 (1.010-1.030); Urine Urobilinogen Negative (Negative); Urine White Blood Cell 1+(6-10/hpf) (Absent)
[2017-11-18] MEDS: Insulin LISPRO* 1 UNITS UNIT SUBCUT SCH ×6 (02:44→23:03)
[2017-11-18] MEDS: Chlorhexidine MOUTHWASH 0.12%* 15 ML UDC TOPICAL SCH ×5 (02:44→18:31)
[2017-11-18] MEDS: Propofol* 100 ML IV SCH (03:47)
[2017-11-18 07:06] LABS: Hematocrit 31 % (35-47); Hemoglobin 10.4 g/dl (12.0-16.0); Mean Corpuscular HGB Conc 34 g/dl (31-36); Mean Corpuscular Hemoglobin 29 pg (27-31); Mean Corpuscular Volume 85 fL (80-97); Mean Platelet Volume 8.5 um3 (7.4-10.4); Platelet Count 181 10^3/ul (150-450); Red Blood Count 3.63 10^6/ul (4.00-5.40); Red Cell Distribution Width 14 % (10.5-15); White Blood Count 16.4 10^3/ul (3.5-10.8)
[2017-11-18 07:23] LABS: EGFR Non-African American 56.1 (>60)
--- NOTE | 2017-11-18 08:00 | RAD ---
HISTORY: escalating WBCs, afebrile COMPARISONS: November 15, 2017 VIEWS: 1: frontal portable view of the chest at 8:40 PM FINDINGS: LINES AND TUBES: An endotracheal tube is noted with the tip overlying the trachea between the clavicles and the antionette. A gastric tube is noted, with the tip in the left upper quadrant in a prepyloric position.. A left internal jugular venous catheter is noted with the tip overlying the superior vena cava. CARDIOMEDIASTINAL SILHOUETTE: The cardiomediastinal silhouette is normal for portable technique. PLEURA: The costophrenic angles are sharp. No pleural abnormalities are noted. LUNG PARENCHYMA: The lungs are clear. ABDOMEN: The upper abdomen is clear. There is no subphrenic gas. BONES AND SOFT TISSUES: No bone or soft tissue abnormalities are noted. IMPRESSION: LINES AND TUBES ABOVE. NO ACTIVE CARDIOPULMONARY DISEASE.
[2017-11-18] MEDS: Folic Acid TAB* 1 MG PO SCH (08:11)
[2017-11-18] MEDS: Thiamine TAB* 100 MG TAB PO SCH (08:11)
[2017-11-18] MEDS: Heparin VIAL(*) 5000 UNITS/ML VIAL (FIVE THOUSAND) SUBCUT SCH ×2 (08:11→21:04)
[2017-11-18] MEDS: Famotidine TAB* 20 MG SCH (08:11)
--- NOTE | 2017-11-18 15:38 | PN ---
Date of Service: 11/18/17 Critical Care Services: Patient extubated today - is awake and responds to verbal commands - is also oriented x3. Gets agitated at times. Has been afebrile, and leukocytosis is resolving. Vital Signs: Temp Pulse Resp BP SpO2 FiO2 99.0 F 97 19 186/96 99 30 Physical Exam: Gen: As mentioned - appears comfortable HEENT: Pupils midposition and reactive Lungs: Clear Extremities:No cyanosis or edema Neuro: Moves all extremities but less movement in left arm. Fluid Balance (Past 24 Hours): 11/18/17 06:59 Intake Total 770 Output Total 1380 Balance -610 Weight 152 lb Intake: IV Fluids 380 ABX - AMPICILLIN ABX - VANCOMYCIN ANTIVIRAL - ACYCLOVIR Banana Bag KCl NS (0.9%) 380 IVPB ABX - AMPICILLIN ABX - CEFTRIAXONE ABX - VANCOMYCIN ABX - ZOSYN ANTIVIRAL - ACYCLOVIR KCl NS (0.9%) Medicated IV 390 CC - Insulin CC - Propofol/Diprivan 390 Versed Output: Urine Stewart 1380 Residual Stewart 16 Fr Temperature Probe Other: Date of Last Bowel Movement # Bowel Movements Estimated Stool Amount Labs: 11/15/17 11/17/17 11/17/17 17:51 18:57 21:30 WBC RBC Hgb Hct MCV MCH MCHC RDW Plt Count MPV Sodium Potassium Chloride Carbon Dioxide Anion Gap BUN Creatinine Est GFR ( Amer) Est GFR (Non-Af Amer) BUN/Creatinine Ratio Glucose POC Glucose (mg/dL) 170 H Calcium Urine Color Yellow Urine Appearance Cloudy Urine pH 5.0 Ur Specific [place] 1.016 Urine Protein 2+(100 mg/dl) A Urine Ketones Trace A Urine Blood 3+ A Urine Nitrate Negative Urine Bilirubin Negative Urine Urobilinogen Negative Ur Leukocyte Esterase Negative Urine WBC (Auto) 1+(6-10/hpf) A Urine RBC (Auto) 3+(>10/hpf) A Ur Squamous Epith Cells Present A Urine Bacteria Absent Urine Yeast Present A Urine Glucose Negative CSF VDRL Negative CSF Cryptococcus Ag Negative CSF West Nile RNA Negative West Nile Virus Source Csf 11/17/17 11/18/17 11/18/17 22:55 02:39 06:53 WBC RBC Hgb Hct MCV MCH MCHC RDW Plt Count MPV Sodium 140 Potassium 4.0 Chloride 111 Carbon Dioxide 20 L Anion Gap 9 BUN 36 H Creatinine 1.02 H Est GFR ( Amer) 67.8 Est GFR (Non-Af Amer) 56.1 BUN/Creatinine Ratio 35.3 H Glucose 187 H POC Glucose (mg/dL) 161 H 173 H Calcium 7.8 L Urine Color Urine Appearance Urine pH Ur Specific [place] Urine Protein Urine Ketones Urine Blood Urine Nitrate Urine Bilirubin Urine Urobilinogen Ur Leukocyte Esterase Urine WBC (Auto) Urine RBC (Auto) Ur Squamous Epith Cells Urine Bacteria Urine Yeast Urine Glucose CSF VDRL CSF Cryptococcus Ag CSF West Nile RNA West Nile Virus Source 11/18/17 11/18/17 11/18/17 06:53 06:53 11:21 WBC 16.4 H RBC 3.63 L Hgb 10.4 L Hct 31 L MCV 85 MCH 29 MCHC 34 RDW 14 Plt Count 181 MPV 8.5 Sodium Potassium Chloride Carbon Dioxide Anion Gap BUN Creatinine Est GFR ( Amer) Est GFR (Non-Af Amer) BUN/Creatinine Ratio Glucose POC Glucose (mg/dL) 191 H 226 H Calcium Urine Color Urine Appearance Urine pH Ur Specific [place] Urine Protein Urine Ketones Urine Blood Urine Nitrate Urine Bilirubin Urine Urobilinogen Ur Leukocyte Esterase Urine WBC (Auto) Urine RBC (Auto) Ur Squamous Epith Cells Urine Bacteria Urine Yeast Urine Glucose CSF VDRL CSF Cryptococcus Ag CSF West Nile RNA West Nile Virus Source 11/18/17 15:01 WBC RBC Hgb Hct MCV MCH MCHC RDW Plt Count MPV Sodium Potassium Chloride Carbon Dioxide Anion Gap BUN Creatinine Est GFR ( Amer) Est GFR (Non-Af Amer) BUN/Creatinine Ratio Glucose POC Glucose (mg/dL) 176 H Calcium Urine Color Urine Appearance Urine pH Ur Specific [place] Urine Protein Urine Ketones Urine Blood Urine Nitrate Urine Bilirubin Urine Urobilinogen Ur Leukocyte Esterase Urine WBC (Auto) Urine RBC (Auto) Ur Squamous Epith Cells Urine Bacteria Urine Yeast Urine Glucose CSF VDRL CSF Cryptococcus Ag CSF West Nile RNA West Nile Virus Source Studies: CXR: No infiltrates. U/A - No bacteria - minimal WBCs. Nutrition: Will transition from tube feedings to oral diet. Impression: Mental status much improved. No evidence of sepsis, despite the marked leukocytosis (peak yesterday) Plan: 1. Swallow evaluation 2. Will repeat CT when patient is less agitated. 3. Consult PT and OT. Critical Care Time: 40 minutes (including time to extubate).
[2017-11-18] MEDS: Haloperidol INJ IV/IM* 5 MG/ML AMP IV SLOW PU PRN (17:28)
[2017-11-18] MEDS: Metoprolol Tartrate IV* 1 MG/ML 5 ML VIAL IV PRN (18:43)
[2017-11-18] MEDS: NS 0.9% 1000 ML* 1,000 ML IV SCH ×2 (18:50→23:31)
[2017-11-18] MEDS ORDERED: hydrALAZINE IV* 20 MG/ML VIAL ONE (20:59)
--- NOTE | 2017-11-18 21:01 | PN ---
NEUROLOGY PROGRESS NOTE: DATE OF SERVICE: 11/18/17 REASON FOR NEUROLOGY FOLLOWUP: Neurology is following for the evaluation of stroke. CHIEF COMPLAINT: Intubated. SUBJECTIVE: The patient is intubated and is off versed but has very low dose propofol. Anticipate extubation today at 12 o'clock. She is awake. She is following command. She continues to have constant weakness in the left upper extremity. This has not improved or worsened. Her blood pressure is still slightly elevated. REVIEW OF SYSTEMS: She nodded no to chest pain, shortness of breath, headache, or double vision. MEDICATIONS: Thiamine, propofol, metoprolol, insulin, heparin, folic acid, famotidine, acetaminophen. PHYSICAL EXAMINATION: Vitals: Temperature 99.1, heart rate 102, respiratory rate 18, oxygen saturation 100%, blood pressure 162/120. General: Critically ill- appearing female, who is intubated. She is awake and follows command. Lungs: Clear to auscultation bilaterally. Cardiovascular: Regular rate and rhythm. Extremities: Chronic ulceration in the distal lower extremity near the webbed spaces in the toes. Neurological examination: Mental status; awake, appears alert, but intubated. Unable to assess language or speech. Cranial nerves; able to track examiner. Pupils are equal, round, and reactive to light. Able to cross midline on both sides with extraocular movements. Mild left facial droop. Motor: She is able to follow verbal command briskly. She has subtle long tract pyramidal weakness graded as 4/5 from the left upper extremity. She has also 4+/5 in the left lower extremity especially to ankle dorsiflexion and hip flexion. Sensation is intact to light touch bilaterally, but this will be further assessed once the patient is extubated. ASSESSMENT: 1. Mrs. Diane Ardon is a 57-year-old female with a right middle cerebral artery ischemic infarction in the middle cerebral artery-posterior cerebral artery vascular distribution stress above a watershed infarction. However, ischemic infarction due to the patient's risk factors of uncontrolled diabetes and hypertension cannot be entirely excluded. We will need CTA of the head and neck to understand her intracranial vasculature. 2. The patient hopefully will be extubated today. 3. She will need PT/OT/METAL BONDER. Blood pressure goal; systolic blood pressure between 120-less than 160 and diastolic blood pressure goal is between 70 to less than 100. 4. Small subdural hematoma-repeat imaging is indicated. The patient will need to be started on aspirin once we have confirmation that the subdural hematoma resolved. 5. Leukocytosis - improving. She is not on any sedation. I do not think this leukocytosis was related to an infectious but possibly a reactive response from the diabetic ketoacidosis. I do not think she had any clinical seizures that would explain the increase in white count. I will continue to follow. No need to order any further testing until the patient is extubated and stabilized from the medical standpoint. I will continue to hold aspirin until conformation intracranial testing is complete. Monitor for seizures that can be related to alcohol withdrawal. TIME SPENT: A total of 25 minutes and greater than 50% of that was spent directly reviewing the medical chart, examining the patient, and discussing the treatment plan with the primary team and the patient's who was at bedside. [id number] #: [id number] LISA
[2017-11-18] MEDS ORDERED: hydrALAZINE IV* 20 MG/ML VIAL IV SLOW PU ONE (21:30)
[2017-11-19] MEDS: Metoprolol Tartrate IV* 1 MG/ML 5 ML VIAL IV PRN ×3 (00:37→17:13)
[2017-11-19] MEDS: Haloperidol INJ IV/IM* 5 MG/ML AMP IV SLOW PU PRN (01:43)
[2017-11-19] MEDS: Insulin LISPRO* 1 UNITS UNIT SUBCUT SCH ×6 (02:45→23:28)
[2017-11-19 06:02] LABS: Hematocrit 34 % (35-47); Hemoglobin 11.2 g/dl (12.0-16.0); Mean Corpuscular HGB Conc 33 g/dl (31-36); Mean Corpuscular Hemoglobin 28 pg (27-31); Mean Corpuscular Volume 86 fL (80-97); Mean Platelet Volume 8.6 um3 (7.4-10.4); Platelet Count 204 10^3/ul (150-450); Red Blood Count 3.97 10^6/ul (4.00-5.40); Red Cell Distribution Width 13 % (10.5-15); White Blood Count 15.4 10^3/ul (3.5-10.8)
[2017-11-19 06:28] LABS: EGFR Non-African American 72.1 (>60)
[2017-11-19] MEDS: Famotidine TAB* 20 MG SCH (09:12)
[2017-11-19] MEDS: Folic Acid TAB* 1 MG PO SCH (09:12)
[2017-11-19] MEDS: Thiamine TAB* 100 MG TAB PO SCH (09:13)
[2017-11-19] MEDS: Heparin VIAL(*) 5000 UNITS/ML VIAL (FIVE THOUSAND) SUBCUT SCH ×2 (09:26→22:10)
--- NOTE | 2017-11-19 09:42 | PN ---
Subjective Date of Service: 11/19/17 Interval History: She was extubated yesterday. She had some agitation and Haldol 5 mg IV was used x 2 within the last 24 hours. She is calm this morning and participating with examiner. She continues to have fixed, constant weakness in the left upper extremity that has not worsened or significantly improved. ROS: She denied any headaches, visual disturbance, chest pain, or shortness of breath. She did endorse hitting her head on the wall at home the day of admission but did not lose consciousness. Last bowel movement was yesterday. Objective Active Medications: Acetaminophen (Tylenol Adult Liq*) 650 mg PO Q4H PRN PRN Reason: FEVER Dextrose (D50w Syringe 50 Ml*) 25 gm IV PUSH Q1H PRN PRN Reason: BG<60 Famotidine (Pepcid Tab*) 20 mg .SEE ORDER DAILY [facility] Last Admin: 11/19/17 09:12 Dose: Not Given Folic Acid (Folvite Tab*) 1 mg PO DAILY [facility] Last Admin: 11/19/17 09:12 Dose: Not Given Haloperidol Lactate (Haldol Inj Iv/Im*) 5 mg IV SLOW PU Q6H PRN PRN Reason: AGITATION Last Admin: 11/19/17 01:43 Dose: 5 mg Heparin Sodium (Porcine) (Heparin Vial(*)) 5,000 units SUBCUT Q12HR [facility] Last Admin: 11/19/17 09:26 Dose: 5,000 units Propofol (Diprivan*) 100 mls @ 15.785 mls/hr IV .(Initial Rate) [facility]; Protocol Last Admin: 11/18/17 03:47 Dose: 21.6 mls/hr Sodium Chloride (Ns 0.9% 1000 Ml*) 1,000 mls @ 25 mls/hr IV PER RATE [facility] Last Admin: 11/18/17 23:31 Dose: 25 mls/hr Insulin Human Lispro (Humalog*) 0 units SUBCUT Q4H [facility]; Protocol Last Admin: 11/19/17 06:03 Dose: 2 units Metoprolol Tartrate (Lopressor Iv*) 10 mg IV Q6H PRN PRN Reason: BLOOD PRESSURE Last Admin: 11/19/17 00:37 Dose: 10 mg Thiamine HCl (Vitamin B-1 Tab*) 100 mg PO DAILY [facility] Last Admin: 11/19/17 09:13 Dose: Not Given Vital Signs - 12 hr Temp Pulse Resp BP Pulse Ox 11/19/17 09:01 98.2 F 90 17 188/78 98 11/19/17 09:00 98.2 F 91 17 100 11/19/17 08:00 98.4 F 83 13 156/74 97 11/19/17 07:00 98.1 F 90 15 170/87 96 11/19/17 06:00 98.1 F 95 20 181/102 96 11/19/17 05:00 98.2 F 83 14 177/87 97 11/19/17 04:00 98.4 F 85 15 172/86 95 11/19/17 03:01 98.6 F 89 19 178/105 97 11/19/17 03:00 98.6 F 91 19 96 11/19/17 02:30 98.6 F 86 21 159/74 97 11/19/17 02:00 98.8 F 85 20 158/72 98 11/19/17 01:30 98.8 F 17 166/78 11/19/17 01:00 98.8 F 16 11/19/17 00:30 98.8 F 14 171/76 11/19/17 00:09 98.6 F 17 11/19/17 00:00 98.6 F 18 170/82 11/18/17 23:34 17 11/18/17 23:30 98.6 F 19 172/82 11/18/17 23:08 98.8 F 94 20 173/78 98 11/18/17 23:00 98.8 F 96 22 173/78 98 11/18/17 22:30 98.8 F 95 23 151/75 92 11/18/17 22:01 99.0 F 92 19 140/83 94 11/18/17 22:00 99.0 F 95 18 94 Oxygen Devices in Use Now: None Neurology Exam: General: Ill appearing female in no acute distress. HEENT: Normocephelic/atraumatic, sclera anicteric, mucous membranes moist Neck: Supple Chest: Clear to auscultation bilaterally Cardiovascular: Regular rate and rhythm without murmurs, rubs, gallops Extremities: No clubbing, cyanosis, or edema Neurological Findings: Awake, Alert, Oriented to person, place "hospital", and month. She appears depressed and endorsed feeling hopeless, helpless, and worthless. Speech: mild dysarthria Cranial Nerve: PEERL, EOM intact, VFF, no nystagmus, face symmetric bilaterally , facial sensation intact, hearing intact to finger rub bilaterally, palate elevates symmetrically, tongue midline, SCM and Trapezius s/s. Mild partial neglect towards the left. Motor: Pronator drift on the left upper extremity. 4/5 strength to shoulder abduction, elbow flexion and extension, and wrist extension. Otherwise, normal strength throughout. Sensation: intact to LT/PP bilaterally upper and lower extremities. She has tactile extinction on the left. Deep Tendon Reflex: 2+ on the right and 3+ on the left. Extensor plantar response on the left. Coordination: motor dysmetria on the left Gait: not assessed yet as she is in ICU Result Diagrams: 11/19/17 05:51 11/19/17 05:51 Additional Lab and Data: CSF analysis: WBC 17 CSF glucose: 327 CSF Protein: 56 UA tox -negative Serum WBC 21 Microbiology and Other Data: Microbiology 11/15/17 17:51 CSF Gram Stain (Tube 3) - Final Cerebral Spinal Fluid 11/15/17 11:31 Nasal Screen MRSA (PCR) - Final Nasal Mrsa Not Detected Diagnostic Imaging: CT head without contrast 11/15/2017: no acute infarction. MRI brain without contrast completed on 11/16/2017: right parietal and occipital lobe infarction. She has mild subdural hematoma near the falx. CT head without contrast completed on 11/17/2017: right parietal infarction, non -hemorrhagic with resolving SDH. Assessment/Plan 1. Acute right MCA-BUSINESS MANAGEMENT SPECIALIST vascular territory infarction- She has mild left hemiparesis, left partial carlota-neglect, and extinction. Mechanism: unknown. The area appears to be in a watershed region between MCA and BUSINESS MANAGEMENT SPECIALIST. A drop in BP can explain the infarct. Other etiology that need to be excluded are: artery to artery emboli or intracranial vascular atherosclerosis. Repeat CT head without contrast and obtain CTA head and neck with contrast today. The CT head can be done prior to the contrast CTA studies. Continue to hold aspirin for now until the complete resolution of the SDH ( which can be barely seen on CT). Keep SBP between 120->160 mmHg She will need rehabilitation PT/OT/SPECIALTY TRIMMER evaluate and treat She is probably ready for transfer to the ICU 2. Concerns for post-stroke depression- may benefit from low dose fluoxetine. Hold off for now until assessed by PT. If she participates well with PT no need to start an anti-depressant especially if she is still agitated and requiring Haldol. 3. Hospitalization related delirium- She is responding to Haldol as needed. qtc - 437. 4. Hx of Alcohol dependency- Monitor for withdrawal. Continue thiamine supplementation. She seems comfortable at this time. I will continue to follow. Discussed case with Dr. Garcia. Time spent: 30 minutes reviewing the electronic medical records, obtaining further history from family at bedside, and discussing the treatment plan as mentioned above. Prognosis: I anticipate she will have an overall good outcome and functionally meaningful neurological recovery.
[2017-11-19] MEDS ORDERED: Iodixanol* (CONTRAST) 320 MG/ML 100 ML SDV IV ONE (13:28)
--- NOTE | 2017-11-19 13:28 | PN ---
Date of Service: 11/19/17 Critical Care Services: Mental status continues to improve. Is more alert and less agitated today. Currently up in a chair. Is oriented x 3. Vital Signs: Temp Pulse Resp BP SpO2 FiO2 98.4 F 96 17 164/89 95 30 Physical Exam: Gen:As mentioned (alert & oriented) HEENT: No facial asymmetry Lungs: Clear Cardiac: Reg rhythm Extremities: No cyanosis or edema. Neuro: Left-sided weakness. Fluid Balance (Past 24 Hours): 11/18/17 11/19/17 06:59 06:59 Intake Total 770 490.9 Output Total 1380 1375 Balance -610 -884.1 Weight 152 lb 155 lb Intake: IV Fluids 380 490.9 ABX - AMPICILLIN ABX - VANCOMYCIN NS (0.9%) 380 490.9 IVPB ABX - AMPICILLIN ABX - VANCOMYCIN KCl NS (0.9%) Medicated IV 390 CC - Propofol/Diprivan 390 Output: Urine Stewart 1380 1375 Other: Date of Last Bowel 11/18/17 Movement # Bowel Movements 1 Estimated Stool Amount Small Labs: 11/18/17 11/19/17 11/19/17 22:55 02:31 05:51 WBC RBC Hgb Hct MCV MCH MCHC RDW Plt Count MPV Sodium 143 Potassium 3.8 Chloride 113 Carbon Dioxide 20 Anion Gap 10 BUN 30 Creatinine 0.82 Glucose 169 H POC Glucose (mg/dL) 167 H 140 H Calcium 8.2 L Magnesium 2.3 11/19/17 11/19/17 11/19/17 05:51 05:55 09:32 WBC 15.4 H RBC 3.97 L Hgb 11.2 L Hct 34 L Plt Count 204 Sodium Potassium Chloride Carbon Dioxide Anion Gap BUN Creatinine Est GFR ( Amer) Est GFR (Non-Af Amer) BUN/Creatinine Ratio Glucose POC Glucose (mg/dL) 181 H 155 H Studies: Head CT (no contrast) and [id number] CTA ordered. Nutrition: Swallowing evaluation today Impression: Continued clinical improvement following right-sided ischemic stroke (posterior parietal region) and very small left-sided subdural hematoma. Plan: 1. Start physical and occupational therapy. 2. Start ASA when subdural hematoma resolves. 3. Start diabetic diet if swallowing evaluation OK. Neurology service is actively following this patient.
[2017-11-19] MEDS: Nicotine PATCH 7 MG/24 HR* PATCH TRANSDERM SCH (14:01)
[2017-11-19] MEDS ORDERED: NS 0.9% 1000 ML* 1,000 ML IV SCH (14:07)
--- NOTE | 2017-11-19 15:16 | RAD ---
HISTORY: left subdural hematoma COMPARISONS: November 17, 2017, November 19, 2017 TECHNIQUE: Multiple contiguous axial CT scans were obtained of the head without intravenous contrast. FINDINGS: HEMORRHAGE/INFARCT: There is multifocal hypoattenuation of the right parietal lobe consistent with subacute nonhemorrhagic infarct, similar to previous examinations. Elsewhere, there is no parenchymal hemorrhage or acute infarct. MASSES/SHIFT: There is no mass or shift. EXTRA-AXIAL SPACES: There is minimal hyperattenuation along the posterior falx consistent with a trace falcine subdural hematoma described on the previous examination, stable from November 17, 2017. SULCI AND VENTRICLES: The sulci and ventricles are normal in size and position for the patient's stated age. CEREBRUM: As noted above, there is patchy hypoattenuation of the right parietal lobe consistent with subacute nonhemorrhagic infarct. BRAINSTEM: There are no focal parenchymal abnormalities. CEREBELLUM: There are no focal parenchymal abnormalities. VESSELS: The vessels are grossly normal. PARANASAL SINUSES: The paranasal sinuses are clear. ORBITS: The orbits are unremarkable. BONES AND SOFT TISSUE: No bone or soft tissue abnormalities are noted. OTHER: None IMPRESSION: 1. SUBACUTE NONHEMORRHAGIC INFARCT OF THE RIGHT PARIETAL LOBE. 2. STABLE TRACE FALCINE SUBDURAL HEMATOMA.
--- NOTE | 2017-11-19 15:40 | RAD ---
HISTORY: acute stroke COMPARISONS: MRI dated November 16, 2017 TECHNIQUE: Multiple contiguous axial CT scans were obtained of the head and neck after the administration of nonionic intravenous contrast timed to the systemic arterial phase of contrast enhancement. Coronal and sagittal multiplanar reformations are submitted for review. Multiple 3-D maximum intensity projection reconstructions are also submitted for review. FINDINGS: CTA NECK: AORTIC ARCH: There is a normal three-vessel branching pattern of the aortic arch. There is no ostial or proximal stenosis of the cephalic great vessels. RIGHT VERTEBRAL ARTERY: The right vertebral artery is patent along its course, without stenosis. LEFT VERTEBRAL ARTERY: The left vertebral artery is patent along its course, without stenosis. DOMINANCE: The vertebral arteries are codominant. RIGHT COMMON CAROTID ARTERY: The right common carotid artery is patent. The right carotid bifurcation occurs at C4-C5 RIGHT INTERNAL CAROTID ARTERY: There is eccentric calcified plaque of the right carotid bifurcation resulting in approximately 70% stenosis of the proximal right internal carotid artery by NASCET criteria. RIGHT EXTERNAL CAROTID ARTERY: The right external carotid artery is unremarkable. LEFT COMMON CAROTID ARTERY: The left common carotid artery is patent. The left carotid bifurcation occurs at C4-C5 LEFT INTERNAL CAROTID ARTERY: There is eccentric calcified plaque of the left carotid bifurcation resulting in approximately 50% stenosis of the proximal left internal carotid artery by NASCET criteria. LEFT EXTERNAL CAROTID ARTERY: The left external carotid artery is unremarkable. VENOUS CIRCULATION: The venous system is unremarkable. SALIVARY GLANDS: The parotid glands, submandibular glands, sublingual glands are normal. NASAL CAVITY/NASOPHARYNX: The nasal cavity and nasopharynx are normal. ORAL CAVITY/OROPHARYNX: The oral cavity is obscured by streak artifact from dental amalgam. The visualized oral cavity and oropharynx are unremarkable. LARYNGEAL APPARATUS/HYPOPHARYNX: The laryngeal apparatus and hypopharynx are normal. UPPER AIRWAY/UPPER ESOPHAGUS: The visualized upper airway and esophagus are normal. LUNG APICES: There is biapical centrilobular emphysematous change. There is a right pleural effusion. THYROID GLAND: The thyroid gland is normal. LYMPH NODES: There is no lymphadenopathy by size criteria. BONES AND SOFT TISSUES: No bone or soft tissue abnormalities are noted. CTA HEAD: INTRACRANIAL CIRCULATION: There is no aneurysm, vascular malformation, occlusion, or stenosis of the visualized intracranial circulation. The anterior communicating artery complex is clear. Bilateral posterior communicating arteries are identified. VENOUS CIRCULATION: The venous system is unremarkable. PERFUSION: There is no obvious parenchymal perfusion deficit. HEMORRHAGE/INFARCT: Again noted is a subacute nonhemorrhagic infarct of the right parietal lobe. MASSES/SHIFT: There is no mass or shift. EXTRA-AXIAL SPACES: There are no extra-axial fluid collections. SULCI AND VENTRICLES: The sulci and ventricles are normal in size and position for the patient's stated age. CEREBRUM: Again noted is hypoattenuation consistent with subacute nonhemorrhagic infarct of the right parietal lobe. BRAINSTEM: There are no focal parenchymal abnormalities. CEREBELLUM: There are no focal parenchymal abnormalities. PARANASAL SINUSES: The paranasal sinuses are clear. ORBITS: The orbits are unremarkable. BONES AND SOFT TISSUE: There is a sclerotic curvature of the spine. There is grade 1 anterolisthesis of C3 on C4. Degenerative changes noted most pronounced at C3-C4 OTHER: There is no abnormal enhancement. IMPRESSION: 1. SUBACUTE NONHEMORRHAGIC INFARCT OF THE RIGHT PARIETAL LOBE. 2. ATHEROMATOUS DISEASE WITH APPROXIMATELY 70% STENOSIS OF THE PROXIMAL RIGHT INTERNAL CAROTID ARTERY AND 50% STENOSIS OF THE PROXIMAL LEFT INTERNAL CAROTID ARTERY BY NASCET CRITERIA. 3. NO ANEURYSM, VASCULAR MALFORMATION, OCCLUSION, OR STENOSIS OF THE VISUALIZED INTRACRANIAL CIRCULATION. CPT II Codes: 3100F
[2017-11-19] MEDS ORDERED: hydrALAZINE IV* 20 MG/ML VIAL IV SLOW PU PRN (17:56)
[2017-11-19] MEDS ORDERED: Insulin LISPRO* 1 UNITS UNIT SUBCUT ONE (23:00)
[2017-11-20] MEDS ORDERED: hydrALAZINE IV* 20 MG/ML VIAL IV SLOW PU PRN (01:41)
[2017-11-20] MEDS ORDERED: Insulin LISPRO* 1 UNITS UNIT SUBCUT ONE ×2 (03:00→05:55)
[2017-11-20 05:50] LABS: EGFR Non-African American 49.3 (>60)
[2017-11-20] MEDS: Nicotine PATCH 7 MG/24 HR* PATCH TRANSDERM SCH (08:50)
[2017-11-20] MEDS: Insulin LISPRO* 1 UNITS UNIT SUBCUT SCH ×4 (08:56→21:37)
[2017-11-20] MEDS: Folic Acid TAB* 1 MG PO SCH (09:00)
[2017-11-20] MEDS: Famotidine TAB* 20 MG PO SCH (09:02)
[2017-11-20] MEDS: Thiamine TAB* 100 MG TAB PO SCH (09:06)
[2017-11-20] MEDS: Carvedilol TAB* 3.125 MG PO SCH ×2 (09:43→21:37)
[2017-11-20] MEDS ORDERED: Insulin GLARGINE(*) 1 UNITS UNIT SUBCUT SCH (11:00)
--- NOTE | 2017-11-20 12:30 | PN ---
Subjective Date of Service: 11/20/17 Interval History: Pt c/o no pain. wounds on her feet between 1st and 2 nd toes developed from flip -flops and are "much better" Objective Active Medications: Acetaminophen (Tylenol Adult Liq*) 650 mg PO Q4H PRN PRN Reason: FEVER Carvedilol (Coreg Tab*) 3.125 mg PO BID [facility] Last Admin: 11/20/17 09:43 Dose: 3.125 mg Dextrose (D50w Syringe 50 Ml*) 25 gm IV PUSH Q1H PRN PRN Reason: BG<60 Famotidine (Pepcid Tab*) 20 mg PO DAILY [facility] Last Admin: 11/20/17 09:02 Dose: Not Given Folic Acid (Folvite Tab*) 1 mg PO DAILY [facility] Last Admin: 11/20/17 09:00 Dose: 1 mg Haloperidol Lactate (Haldol Inj Iv/Im*) 5 mg IV SLOW PU Q6H PRN PRN Reason: AGITATION Last Admin: 11/19/17 01:43 Dose: 5 mg Insulin Glargine (Lantus(*)) 15 units SUBCUT Q24H [facility] Last Admin: 11/20/17 11:38 Dose: 15 units Insulin Human Lispro (Humalog*) 0 units SUBCUT ACHS [facility]; Protocol Last Admin: 11/20/17 11:37 Dose: 6 units Nicotine (Nicotine Patch 7 Mg/24 Hr*) 1 patch TRANSDERM DAILY [facility] Last Admin: 11/20/17 08:50 Dose: 1 patch Thiamine HCl (Vitamin B-1 Tab*) 100 mg PO DAILY [facility] Last Admin: 11/20/17 09:06 Dose: 100 mg Vital Signs - 8 hr 11/20/17 11/20/17 11/20/17 04:34 07:54 08:00 Temperature 97.6 F Pulse Rate 100 Respiratory 18 16 Rate Blood Pressure 167/67 168/72 (mmHg) O2 Sat by Pulse 100 Oximetry 11/20/17 11:13 Temperature 98.3 F Pulse Rate 86 Respiratory 16 Rate Blood Pressure 144/50 (mmHg) O2 Sat by Pulse 99 Oximetry Oxygen Devices in Use Now: None Appearance: 89 yo f in nAD, aAOx3 Eyes: No Scleral Icterus, PERRLA Ears/Nose/Mouth/Throat: NL Teeth, Lips, Gums, Mucous Membranes Moist Neck: NL Appearance and Movements; NL JVP, Trachea Midline Respiratory: Symmetrical Chest Expansion and Respiratory Effort, Clear to Auscultation Cardiovascular: NL Sounds; No Murmurs; No JVD, RRR Abdominal: NL Sounds; No Tenderness; No Distention Lymphatic: No Cervical Adenopathy Extremities: No Clubbing, Cyanosis, - - trace ankle edema b/l Skin: No Nodules or Sclerosis, - - brasion wounds from flip flops in between 1st and 2 nd toes covered with eschar, no evidence of infection Neurological: Alert and Oriented x 3, - - mild L LE weakness at 4+/5, L UE at 4= /5. No motor deficit on R. Speech clear, CN2-12 intact, noted L hemineglect Result Diagrams: 11/19/17 05:51 11/20/17 05:15 Additional Lab and Data: CSF analysis: WBC 17 CSF glucose: 327 CSF Protein: 56 UA tox -negative Serum WBC 21 Microbiology and Other Data: Microbiology 11/15/17 17:51 CSF Gram Stain (Tube 3) - Final Cerebral Spinal Fluid 11/15/17 11:31 Nasal Screen MRSA (PCR) - Final Nasal Mrsa Not Detected Diagnostic Imaging: CT head without contrast 11/15/2017: no acute infarction. MRI brain without contrast completed on 11/16/2017: right parietal and occipital lobe infarction. She has mild subdural hematoma near the falx. CT head without contrast completed on 11/17/2017: right parietal infarction, non -hemorrhagic with resolving SDH. Assess/Plan/Problems-Billing 57 yo f with h/o : DM, Hypothyroidism, Cardiomyopathy, Hypertension, chronic pain, possible ETOH abuse presented obtunded, intubated in the ED. Her BG>400, SBP's in 180's Transferred out of ICU on 11/19/17 with dx of Acute R MCA CVA and small SDH ( reported fall prior to admission) - Patient Problems (1) CVA (cerebral vascular accident) Comment: Acute right MCA-GENERATOR REBUILDER vascular territory infarction- She has mild left hemiparesis, left partial carlota-neglect, and extinction. Mechanism: unknown. The area appears to be in a watershed region between MCA and GENERATOR REBUILDER. A drop in BP can explain the infarct in pt with 70% R internal carotid stenosis. D/w Dr. Whitmore- pt will need a vascular surgeon evaluation as outpatient As d/w Dr. [place] OK to start aspirin today. PT/OT/SOLE DYER evaluate and treat, may need STR started on Lipitor, lipid profile ordered (2) HTN (hypertension) Comment: restarted coreg (3) Hypothyroid Comment: Continue levothyroxine. TSH 1.6 on 11/17/17 (4) Diabetes Comment: uncontrolled will restart Lantus , cont iSS, check HbA1C (5) H/O ETOH abuse Comment: cont Thiamine, Folate, no signs of withdrawal (6) Subdural hematoma Comment: small , after a fall d/w Dr. Pratt. No further action needed (7) DKA (diabetic ketoacidoses) Comment: present at admission, resolved (8) YAZMIN (acute kidney injury) Comment: creat peaked at 1.4, improving (9) Dysphagia Comment: swallow eval OK for regular solids and thickened liquids (10) DVT prophylaxis Comment: SCD's . No anticoagulants due to SDH Status and Disposition: Inpatient
[2017-11-20 21:02] LABS: EGFR Non-African American 61.6 (>60)
--- NOTE | 2017-11-20 21:17 | PN ---
NEUROLOGY PROGRESS NOTE: DATE OF SERVICE: 11/20/17 PRIMARY PROVIDER: Dr. Maryan Hernández. REASON FOR FOLLOWUP: Neurology is following for the evaluation of stroke. CHIEF COMPLAINT: Left-sided weakness. SUBJECTIVE: The patient has been transferred out of the ICU yesterday. Her blood glucose is significantly elevated throughout the night, but reassuring the most recent blood glucose is 280 and it was as high as 686 yesterday. She continues to complain of left arm weakness and ulceration of the toes in between the webspace. She denied any headaches, visual disturbance, swallowing difficulty, or new weakness. MEDICATIONS: 1. Acetaminophen 650 mg p.o. every 4 hours. 2. Aspirin 81 mg daily. 3. Atorvastatin 80 mg p.o. nightly. 4. Carvedilol 3.125 mg p.o. twice daily. 5. Famotidine 20 mg p.o. daily. 6. Folic acid 1 mg p.o. daily. 7. Haldol 5 mg IV slow push every 6 hours as needed for agitation, last dose was 11/19/17 at 1:43 a.m. 8. Insulin Lantus 15 units subcu every 24 hours. 9. Humalog 10. Thiamine 100 mg p.o. daily. REVIEW OF SYSTEMS: She denied any chest pain, shortness of breath, or palpitation. PHYSICAL EXAMINATION: Vitals: Temperature of 98.3, heart rate of 86, respiratory rate of 16, oxygen saturation 99%, blood pressure 144/50. Ill- appearing female, in no acute distress. She has got a central line in the left IJ. Head is normocephalic, atraumatic. Sclerae, anicteric. Neck is supple with no nuchal rigidity. Clear to auscultation bilaterally and anterior chest wall. Cardiovascular: Regular rate and rhythm with no murmurs. Extremities: No clubbing or cyanosis. She does have ulceration between the 1st webspace, most likely related to chronic sandal use. Neurologic Examination: The patient is awake, slightly drowsy, but alert, oriented to person, place, and month. She is not feeling as depressed but is requesting that she wants to go home. She has mild dysarthria. Pupils equal, round, reactive to light, extraocular muscles are intact, no nystagmus. She has mild partial neglect towards the left side, but it is getting better. She does have mild pronator drift on the left upper extremity, but otherwise she has got 4/5 strength with shoulder abduction, elbow flexion and extension. Otherwise, she has normal strength throughout. She does have increase in tone in the left upper extremity. She has tactile extinction on the left to light touch, otherwise she has normal strength throughout. She does have reduced vibratory sensation at the great toes, 5 seconds on the right and 4 seconds on the left. Deep tendon reflex 2+ on the right and 3+ on the left biceps, brachioradialis, and triceps. She does have an extensive plantar response on the left. Coordination : Motor dysmetria on the left with reduced rapid alternating movements on the left side. DIAGNOSTIC STUDIES/LAB DATA: Sodium 145, potassium is 3.7, chloride of 113, carbon dioxide of 21, anion gap of 11, creatinine of 1.14, glucose 280 but it was 539 earlier this morning, calcium 8.4. CT of the head completed on 11/19/17 showed evidence of subacute nonhemorrhagic infarct of the right parietal lobe with stable trace falcine subdural hematoma. Head CTA obtained on 11/19/17 showed evidence of 70% stenosis of the proximal right internal carotid artery and 50% stenosis of the proximal left internal carotid artery by NASCET criteria. She has no intracranial artery stenosis or aneurysms. ASSESSMENT AND PLAN: Ms. Diane Ardon is a 57-year-old poorly controlled type 2 diabetic who presented to [facility] [place] on 11/15/17 with altered sensorium. She was found to have diabetic ketoacidosis and hypertensive encephalopathy with systolic blood pressure ranging in the 230s. It was unclear if she had a stroke on presentation or she may have developed in-house stroke. Interestingly , her systolic blood pressure dropped from 233 to high 90s and lower 100s during this hospitalization. She also had a workup for possible infectious etiology, but cerebrospinal fluid analysis did not show any evidence of central nervous system infection. She must have had an infection that triggered the diabetic ketoacidosis on top of the medication noncompliance. 1. 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 Given the drop in blood pressure, I suspect this is the cause of the watershed infarction. We should have a lipid panel checked and start atorvastatin 80 mg daily. The patient will need PT/OT evaluation. The patient will need [employer] evaluation. She will require short- term rehabilitation. 2. Falcine mild subdural hematoma that I barely see on the recent CT head and it is hard to differentiate between the subdural or possible calcification around that area - I have discussed this case in detail with Dr. Hernández. She contacted Neurosurgery who apparently cleared the patient for antiplatelet therapy. The patient needs to be started on aspirin [address] Hernández had discussed the case with neurosurgery. He cleared to start antiplatelet therapy in the setting of the subdural. 3. Diabetic ketoacidosis. The patient's blood glucose needs to be closely monitored and controlled as her stroke deficits may worsen in the setting of hyperglycemia. 4. Hypertension. Her blood pressure has been improving. Her blood pressure goal is normotensive at this point. 5. Concerns for poststroke depression - the patient's mood seems to be much improved today. No need for an antidepressant agent at this time. 6. History of alcohol dependency/abuse. She is out of the window for alcohol withdrawal. Continue thiamine supplementation. We discussed reducing her alcohol intake and possibly considering the cessation of alcohol to improve her quality of life long-term. TIME SPENT: Thirty minutes of which 50% were spent reviewing the history, examining the patient, and discussing the treatment plan with the patient, her daughter, and the primary team including Dr. Hernández. Please consider removing the urinary catheter to reduce her risk of developing UTI and removing the central line and using a peripheral line instead. This will allow for easier rehabilitation. [id number]/[facility] #: [id number] MTDD
[2017-11-21 05:36] LABS: EGFR Non-African American 72.1 (>60)
[2017-11-21] MEDS ORDERED: Dextrose 50% Syringe 50 ML* 25 GM/50 ML SYRINGE IV PUSH PRN (08:39)
[2017-11-21] MEDS: Famotidine TAB* 20 MG PO SCH (09:12)
[2017-11-21] MEDS: Insulin LISPRO* 1 UNITS UNIT SUBCUT SCH ×5 (09:13→20:08)
[2017-11-21] MEDS: Thiamine TAB* 100 MG TAB PO SCH (09:15)
[2017-11-21] MEDS: Carvedilol TAB* 3.125 MG PO SCH ×2 (09:15→19:41)
[2017-11-21] MEDS: Folic Acid TAB* 1 MG PO SCH (09:15)
[2017-11-21] MEDS: Lisinopril TAB* 10 MG PO SCH (09:15)
[2017-11-21] MEDS: Levothyroxine TAB* 50 MCG TAB PO SCH (09:15)
[2017-11-21] MEDS: Aspirin 81 mg CHEW TAB* 81 MG TAB.CHEW PO SCH (09:15)
[2017-11-21] MEDS: Nicotine PATCH 7 MG/24 HR* PATCH TRANSDERM SCH (09:20)
[2017-11-21] MEDS: Insulin GLARGINE(*) 1 UNITS UNIT SUBCUT SCH (12:00)
--- NOTE | 2017-11-21 13:05 | PN ---
Subjective Date of Service: 11/21/17 Interval History: Pt feels better today. Walking with assistance and a walker. noted pedal edema in the past 24H, used to be on torsemide at home Objective Active Medications: Acetaminophen (Tylenol Adult Liq*) 650 mg PO Q4H PRN PRN Reason: FEVER Aspirin (Aspirin 81 Mg Chew Tab*) 81 mg PO DAILY [facility] Last Admin: 11/21/17 09:15 Dose: 81 mg Atorvastatin Calcium (Lipitor*) 80 mg PO 1700 [facility] Carvedilol (Coreg Tab*) 3.125 mg PO BID [facility] Last Admin: 11/21/17 09:15 Dose: 3.125 mg Dextrose (D50w Syringe 50 Ml*) 25 gm IV PUSH Q1H PRN PRN Reason: BG<60 Dextrose (D50w Syringe 50 Ml*) 12.5 gm IV PUSH .FOR FS < 60 - SS PRN PRN Reason: FS < 60 Famotidine (Pepcid Tab*) 20 mg PO DAILY [facility] Last Admin: 11/21/17 09:12 Dose: Not Given Folic Acid (Folvite Tab*) 1 mg PO DAILY [facility] Last Admin: 11/21/17 09:15 Dose: 1 mg Haloperidol Lactate (Haldol Inj Iv/Im*) 5 mg IV SLOW PU Q6H PRN PRN Reason: AGITATION Last Admin: 11/19/17 01:43 Dose: 5 mg Insulin Glargine (Lantus(*)) 20 units SUBCUT Q24H [facility] Last Admin: 11/21/17 12:00 Dose: 20 unit Insulin Human Lispro (Humalog*) 0 units SUBCUT ACHS [facility]; Protocol Last Admin: 11/21/17 12:00 Dose: 2 units Insulin Human Lispro (Humalog*) 10 units SUBCUT 1800 [facility] Levothyroxine Sodium (Synthroid Tab*) 50 mcg PO 0600 [facility] Last Admin: 11/21/17 09:15 Dose: 50 mcg Lisinopril (Prinivil Tab*) 20 mg PO DAILY [facility] Last Admin: 11/21/17 09:15 Dose: 20 mg Nicotine (Nicotine Patch 7 Mg/24 Hr*) 1 patch TRANSDERM DAILY [facility] Last Admin: 11/21/17 09:20 Dose: 1 patch Thiamine HCl (Vitamin B-1 Tab*) 100 mg PO DAILY [facility] Last Admin: 11/21/17 09:15 Dose: 100 mg Torsemide (Demadex*) 40 mg PO DAILY [facility] Vital Signs - 8 hr 11/21/17 11/21/17 11/21/17 07:11 07:42 11:11 Temperature 98.5 F 98.3 F Pulse Rate 77 79 Respiratory 18 16 18 Rate Blood Pressure 158/71 174/79 (mmHg) O2 Sat by Pulse 100 100 Oximetry Oxygen Devices in Use Now: None Appearance: 57 yo f in nAD, aAOx3 Eyes: No Scleral Icterus, PERRLA Ears/Nose/Mouth/Throat: NL Teeth, Lips, Gums, Mucous Membranes Moist Neck: NL Appearance and Movements; NL JVP, Trachea Midline Respiratory: Symmetrical Chest Expansion and Respiratory Effort, Clear to Auscultation Cardiovascular: NL Sounds; No Murmurs; No JVD Abdominal: NL Sounds; No Tenderness; No Distention Lymphatic: No Cervical Adenopathy Extremities: No Clubbing, Cyanosis, - - trace pedal edema b/l Skin: No Rash or Ulcers, No Nodules or Sclerosis Neurological: Alert and Oriented x 3, - - left hemineglect improving. LUE at 4+/ 5-proximal weakness more pronounced. LLE 4+/5, CN2-12 intact Result Diagrams: 11/19/17 05:51 11/21/17 05:03 Additional Lab and Data: CSF analysis: WBC 17 CSF glucose: 327 CSF Protein: 56 UA tox -negative Serum WBC 21 Microbiology and Other Data: Microbiology 11/15/17 17:51 CSF Gram Stain (Tube 3) - Final Cerebral Spinal Fluid 11/15/17 11:31 Nasal Screen MRSA (PCR) - Final Nasal Mrsa Not Detected Diagnostic Imaging: CT head without contrast 11/15/2017: no acute infarction. MRI brain without contrast completed on 11/16/2017: right parietal and occipital lobe infarction. She has mild subdural hematoma near the falx. CT head without contrast completed on 11/17/2017: right parietal infarction, non -hemorrhagic with resolving SDH. Assess/Plan/Problems-Billing 57 yo F [facility] h/o:DM, Hypothyroidism, Cardiomyopathy, Hypertension, chronic pain , possible ETOH abuse presented obtunded, intubated in the ED. Her BG>400, SBP' s in 180's Transferred out of ICU on 11/19/17 with dx of Acute R MCA CVA and small SDH ( reported fall prior to admission) - Patient Problems (1) CVA (cerebral vascular accident) Comment: Acute right MCA-[employer]ATOR vascular territory infarction- She has mild left hemiparesis, left partial carlota-neglect, and extinction. Mechanism: unknown. The area appears to be in a watershed region between MCA and [employer]. A drop in BP can explain the infarct in pt with 70% R internal carotid stenosis. D/w Dr. Whitmore- pt will need a vascular surgeon evaluation as outpatient As d/w Dr. Pratt OK to start aspirin -started on 11/20/17 may need STR started on Lipitor, lipid profile shows LDL 90 (2) HTN (hypertension) Comment: cont coreg, restarting torsemide and lisinopril (3) Hypothyroid Comment: Continue levothyroxine. TSH 1.6 on 11/17/17 (4) Diabetes Comment: fair control today cont Lantus , cont iSS, HbA1C pending (5) H/O ETOH abuse Comment: cont Thiamine, Folate, no signs of withdrawal (6) Subdural hematoma Comment: small , after a fall d/w Dr. Pratt. No further action needed (7) DKA (diabetic ketoacidoses) Comment: present at admission, resolved (8) YAZMIN (acute kidney injury) Comment: creat peaked at 1.4 resolved (9) Dysphagia Comment: swallow eval OK for regular solids and thickened liquids (10) DVT prophylaxis Comment: SCD's . No anticoagulants due to SDH Status and Disposition: Inpatient
[2017-11-21] MEDS: Torsemide TAB* 20 MG PO SCH (13:58)
--- NOTE | 2017-11-21 15:35 | CONS ---
CONSULTATION REPORT: DATE OF CONSULT: 11/21/17 HISTORY OF PRESENT ILLNESS: Diane Ardon is a 57-year-old woman with history of diabetes and alcohol use who is admitted with confusion on 11/15/17 and was found to have diabetic ketoacidosis and hypertensive encephalopathy. This occurs in the the setting of progressive decline in ambulation, fatigue, peripheral edema with skin breakdown in the feet. She had extensive workup and is followed by Dr. Kinney and Dr. Whitmore in Neurology. Her chart was reviewed including initial workup with lumbar puncture, initial coverage with ceftriaxone , ampicillin, vancomycin and acyclovir followed by MRIs, which showed right posterior parietal ischemic infarct in the left subdural hematoma near falx, both which showed changes on CT with progression as expected of the infarct and reduction of the left subdural hematoma. She was extubated on the . Her course has been complicated by delirium. Dr. Whitmore brought up concerns of depression with her history of alcohol, she was treated with thiamine. Her workup for stroke, she had an echocardiogram, which showed 55 to 60% ejection fraction. I am not seeing clear documentation of evaluation for PFO. She did have a CTA of the brain and neck which showed a 70% right internal carotid artery stenosis. It was felt her stroke her most likely secondary to hypoperfusion and treatment with aspirin and atorvastatin was suggested, as well as further evaluation and treatment in rehab. On visit today, Diane Ardon indicates that everyday she is feeling better. She does recognize that she has some vision issues off to the left as well as some weakness. MEDICATIONS: Include, 1. Acetaminophen 650 mg p.o. q. 4 hours p.r.n. fever. 2. Aspirin 81 mg p.o. daily. 3. Lipitor 80 mg p.o. q.p.m. 4. Coreg is 3.125 mg p.o. b.i.d. 5. Dextrose D50W p.r.n. blood sugar less than 60. Dextrose 12.5 g IV push p.r.n. fingerstick less than 60. 6. Famotidine 20 mg p.o. daily. 7. Folate 1 mg p.o. daily. 8. Haldol 5 mg IV q. 6 hours p.r.n. agitation. 9. Lantus insulin 20 units subcu q. 24 hours. 10. Insulin Lispro 10 units subcu q. 1800. 11. Synthroid 50 mcg p.o. q. 6 a.m. 12. Lisinopril 20 mg p.o. daily. 13. Nicotine patch 7 mg per 24 hours 1 patch daily. 14. Thiamine 100 mg p.o. daily. PHYSICAL EXAM: Her temperature was 98.5 degrees Fahrenheit and respiratory rate was 16 and her heart rate was 77 and regular. She had 100% saturation on room air and her blood pressure was 158/71. She had regular cardiac rhythm. Her lungs were clear to auscultation to inspiration; however, there was expiratory wheeze bilaterally. There was no carotid bruits appreciated on the right. On the left, she had a line in place. She was awake, alert. She knew she was in hospital. She was able to introduce me to her family member. She had full extraocular movements with psychotic intrusions noted. She had left homonymous hemianopsia to confrontation. Her facial expression; however, was symmetric. There was no dysarthria. Palate was upgoing. Tongue was midline. Sternocleidomastoid and trapezius were 5/5 in strength. There was a mild left pronator drift. She was strong on the right hand side. On the left hand side, there was weakness in the deltoid at 4 -/5. Biceps and triceps were 4+/5. Intrinsic hand muscles 5-/5. In the lower extremities, there was hip flexion weakness of 5-/5, knee flexion weakness at 4+ /5 with dorsiflexion weakness at 5 -/5. EHL 4-/5. Her reflexes were symmetric in the upper extremities and her toes were downgoing in the right, upgoing in the left. She denied any asymmetry to pin prick or to light touch and there was no neglect to double simultaneous stimulation. DIAGNOSTIC STUDIES/LAB DATA: Includes previous chart which was reviewed including reviewing directly MRI of the brain. She has also had previous EEG, which showed no epileptiform activity. CTA was reviewed, as noted above, as well as all of Dr. Whitmore's progress notes and workup to date. Her metabolic panel today showed slight reduction in potassium at 3.4. CO2 is elevated at 112. Her BUN was elevated at 28, glucose was elevated at 141. Calcium was low 8.1. Triglycerides were 72, cholesterol 160, LDL 90 and HDL 55.3. Her blood cultures continued to show no growth. Her previous CSF culture and urine culture were negative. IMPRESSION: Diane Ardon is a 57-year-old woman with history of admission for diabetic ketoacidosis and hypertensive encephalopathy requiring intubation who has been found in her workup to have a right posteroparietal infarct with residual findings on examination of left visual field cut, left-sided weakness. She is on aspirin and atorvastatin and no decline has been seen. In addition to the ischemic infarct, she was also noted to have a subdural hematoma. She has a 70% internal carotid artery stenosis on the right, certainly hypoperfusion may have contributed to ischemia or thromboembolic etiology from carotid or potentially from her heart. She should be referred to a vascular surgeon regarding her right internal carotid artery as an outpatient. Hospitalist team is aware. She has many medical problems at this point that need to be stabilized, as well as post stroke care. She has been monitored on telemetry during her hospitalization and no comment on cardioembolic sources noted. One cannot exclude a cardioembolic source for the stroke. Echocardiogram was not reported showing a PFO, however, I do not see evidence of bubble study being performed. In the future, repeat echo with bubble study should be considered. She is someone who will need significant rehabilitation with PT/OT. She is improving every day and is motivated to get better. TIME SPENT: Over 45 minutes were spent in patient care, reviewing the chart, as well as seeing the patient and formulating notes. Education was given to the patient regarding diagnosis and findings on examination. [id number]/[facility] #: [id number] LISA
[2017-11-21] MEDS: Atorvastatin* 80 MG TAB PO SCH (17:52)
[2017-11-21] MEDS: Acetaminophen ADULT LIQ* 650 MG/20.3 ML UDC PO PRN (20:09)
[2017-11-22] MEDS: Levothyroxine TAB* 50 MCG TAB PO SCH (05:53)
[2017-11-22] MEDS: Insulin LISPRO* 1 UNITS UNIT SUBCUT SCH ×5 (08:44→21:04)
[2017-11-22] MEDS: Aspirin 81 mg CHEW TAB* 81 MG TAB.CHEW PO SCH (08:57)
[2017-11-22] MEDS: Folic Acid TAB* 1 MG PO SCH (08:57)
[2017-11-22] MEDS: Torsemide TAB* 20 MG PO SCH (08:57)
[2017-11-22] MEDS: Carvedilol TAB* 3.125 MG PO SCH ×2 (08:57→21:04)
[2017-11-22] MEDS: Famotidine TAB* 20 MG PO SCH (08:57)
[2017-11-22] MEDS: Lisinopril TAB* 10 MG PO SCH (08:57)
[2017-11-22] MEDS: Nicotine PATCH 7 MG/24 HR* PATCH TRANSDERM SCH (08:58)
[2017-11-22] MEDS: Thiamine TAB* 100 MG TAB PO SCH (08:58)
[2017-11-22] MEDS: Insulin GLARGINE(*) 1 UNITS UNIT SUBCUT SCH (12:35)
--- NOTE | 2017-11-22 13:45 | PN ---
Subjective Date of Service: 11/22/17 Interval History: Pt seen and examined. Meds and labs reviewed. CC: N/A ROS: Denied SALINAS/dizziness, F/C, N/V, CP, SOB, increased cough, sputum production , abd pain, diarrhea, constipation, dysuria, myalgias, arthralgias, throat pain , and new skin lesions. The rest of the 14 point ROS are unremarkable. PHYSICAL EXAM: GEN APPEARANCE: Awake, not in acute distress HEENT: NC/AT, PERRLA, moist oral mucosa, (-) throat erythema NECK: Soft, supple, (-) cervical LAD, (-)JVD HEART: S1S2 WNL, RRR, No MRG CHEST: CTA, BL, GAE, No W/R/R ABD: Soft, ND/NT, NABS 4x Q EXT: No C/C/E NEURO: LUE weakness, mild if any weakness in LLE, sensory test at both sides intact SKIN: Warm to touch PSYCH: No active psychosis, hallucinations, depression, SI/HI Objective Active Medications: Acetaminophen (Tylenol Adult Liq*) 650 mg PO Q4H PRN PRN Reason: FEVER Last Admin: 11/21/17 20:09 Dose: 650 mg Aspirin (Aspirin 81 Mg Chew Tab*) 81 mg PO DAILY [facility] Last Admin: 11/22/17 08:57 Dose: 81 mg Atorvastatin Calcium (Lipitor*) 80 mg PO 1700 [facility] Last Admin: 11/21/17 17:52 Dose: 80 mg Carvedilol (Coreg Tab*) 3.125 mg PO BID [facility] Last Admin: 11/22/17 08:57 Dose: 3.125 mg Dextrose (D50w Syringe 50 Ml*) 25 gm IV PUSH Q1H PRN PRN Reason: BG<60 Dextrose (D50w Syringe 50 Ml*) 12.5 gm IV PUSH .FOR FS < 60 - SS PRN PRN Reason: FS < 60 Famotidine (Pepcid Tab*) 20 mg PO DAILY [facility] Last Admin: 11/22/17 08:57 Dose: Not Given Folic Acid (Folvite Tab*) 1 mg PO DAILY [facility] Last Admin: 11/22/17 08:57 Dose: 1 mg Haloperidol Lactate (Haldol Inj Iv/Im*) 5 mg IV SLOW PU Q6H PRN PRN Reason: AGITATION Last Admin: 11/19/17 01:43 Dose: 5 mg Heparin Sodium (Porcine) (Heparin Flush Picc/Ml/Cvc(*)) 1 - 3 ml FLUSH 0600, 1800 [facility]; Protocol Last Admin: 11/22/17 05:54 Dose: 3 ml Insulin Glargine (Lantus(*)) 20 units SUBCUT Q24H [facility] Last Admin: 11/22/17 12:35 Dose: 20 unit Insulin Human Lispro (Humalog*) 0 units SUBCUT ACHS [facility]; Protocol Last Admin: 11/22/17 12:35 Dose: 6 units Insulin Human Lispro (Humalog*) 10 units SUBCUT 1800 [facility] Last Admin: 11/21/17 17:56 Dose: 10 units Levothyroxine Sodium (Synthroid Tab*) 50 mcg PO 0600 [facility] Last Admin: 11/22/17 05:53 Dose: 50 mcg Lisinopril (Prinivil Tab*) 20 mg PO DAILY [facility] Last Admin: 11/22/17 08:57 Dose: 20 mg Nicotine (Nicotine Patch 7 Mg/24 Hr*) 1 patch TRANSDERM DAILY [facility] Last Admin: 11/22/17 08:58 Dose: 1 patch Thiamine HCl (Vitamin B-1 Tab*) 100 mg PO DAILY [facility] Last Admin: 11/22/17 08:58 Dose: 100 mg Torsemide (Demadex*) 40 mg PO DAILY [facility] Last Admin: 11/22/17 08:57 Dose: 40 mg Vital Signs - 8 hr 11/22/17 11/22/17 11/22/17 07:54 08:00 11:32 Temperature 98.2 F 97.9 F Pulse Rate 77 81 Respiratory 16 16 16 Rate Blood Pressure 177/79 172/80 (mmHg) O2 Sat by Pulse 97 99 Oximetry Oxygen Devices in Use Now: None Result Diagrams: 11/19/17 05:51 11/21/17 05:03 Additional Lab and Data: CSF analysis: WBC 17 CSF glucose: 327 CSF Protein: 56 UA tox -negative Serum WBC 21 Microbiology and Other Data: Microbiology 11/15/17 17:51 CSF Gram Stain (Tube 3) - Final Cerebral Spinal Fluid 11/15/17 11:31 Nasal Screen MRSA (PCR) - Final Nasal Mrsa Not Detected Diagnostic Imaging: CT head without contrast 11/15/2017: no acute infarction. MRI brain without contrast completed on 11/16/2017: right parietal and occipital lobe infarction. She has mild subdural hematoma near the falx. CT head without contrast completed on 11/17/2017: right parietal infarction, non -hemorrhagic with resolving SDH. Assess/Plan/Problems-Billing 57 yo F [facility] h/o:DM, Hypothyroidism, Cardiomyopathy, Hypertension, chronic pain , possible ETOH abuse presented obtunded, intubated in the ED. Her BG>400, SBP' s in 180's Transferred out of ICU on 11/19/17 with dx of Acute R MCA CVA and small SDH ( reported fall prior to admission) - Patient Problems (1) CVA (cerebral vascular accident) Current Visit: Yes Status: Acute Code(s): I63.9 - CEREBRAL INFARCTION, UNSPECIFIED SNOMED Code(s): 724284761 Comment: -Acute right MCA-[employer] vascular territory infarction- -She has mild left hemiparesis, left partial carlota-neglect, and extinction. -Mechanism: unknown. The area appears to be in a watershed region between MCA and [employer]. A drop in BP can explain the infarct in pt with 70% R internal carotid stenosis. D/w Dr. Whitmore- pt will need a vascular surgeon evaluation as outpatient -As d/w Dr. Terence SCOTT to start aspirin -started on 11/20/17 -Continue ASA and Lipitor; lipid profile shows LDL 90 (2) HTN (hypertension) Current Visit: No Status: Acute Code(s): I10 - ESSENTIAL (PRIMARY) HYPERTENSION SNOMED Code(s): 45736800 Comment: cont coreg, restarting torsemide and lisinopril (3) Hypothyroid Current Visit: No Status: Acute Code(s): E03.9 - HYPOTHYROIDISM, UNSPECIFIED SNOMED Code(s): 54715710 Comment: Continue levothyroxine. TSH 1.6 on 11/17/17 (4) Diabetes 1.5, managed as type 2 Current Visit: Yes Status: Acute Code(s): E10.9 - TYPE 1 DIABETES MELLITUS WITHOUT COMPLICATIONS SNOMED Code(s): 264782320 Comment: -cont Lantus , cont iSS (5) H/O ETOH abuse Current Visit: Yes Status: Acute Code(s): Z87.898 - PERSONAL HISTORY OF OTHER SPECIFIED CONDITIONS SNOMED Code(s): 448155925 Comment: cont Thiamine, Folate, no signs of withdrawal (6) Subdural hematoma Current Visit: Yes Status: Acute Code(s): S06.5X9A - TRAUM SUBDR HEM W LOC OF UNSP DURATION, INIT SNOMED Code(s): 70760096 Comment: small , after a fall d/w Dr. Pratt. No further action needed (7) Dysphagia Current Visit: Yes Status: Acute Code(s): R13.10 - DYSPHAGIA, UNSPECIFIED SNOMED Code(s): 52712472 Comment: swallow eval OK for regular solids and thickened liquids (8) DVT prophylaxis Current Visit: Yes Status: Acute Code(s): IWD6734 - SNOMED Code(s): 744062066 Comment: SCD's . No anticoagulants due to SDH Status and Disposition: For STR placement
[2017-11-22] MEDS: Atorvastatin* 80 MG TAB PO SCH (17:28)
[2017-11-22] MEDS: Bacitracin OINTMENT* 0.5% 0.5 oz TUBE TOPICAL SCH (21:05)
--- NOTE | 2017-11-22 22:48 | PN ---
FOLLOWUP NOTE: DATE OF SERVICE: 11/22/17 HISTORY: The patient has no new symptoms. She continues to recover from admission for diabetic ketoacidosis, hypertensive encephalopathy with findings on MRI of a right posterior parietal ischemic stroke and findings of right internal carotid artery 70% stenosis on CTA. PHYSICAL EXAMINATION: On examination today, most recent temperature was 97.9 degrees Fahrenheit, her respiratory rate was 16, heart rate was 81 and regular, saturation was 99%, blood pressure was 172/80. She had a regular cardiac rhythm. Her lungs were clear on inspiration; however, had expiratory wheezes which were diffuse. She had full extraocular movements; however, had left homonymous hemianopsia. Her facial expression had a question of very slight asymmetry on the left. There was a left pronator drift. Her deltoid was weak at 4+/5, triceps 5- /5, biceps was strong. It was harder for her to coordinate fingers on both hands to request. In her left lower extremity, she continued to have weakness, subtle proximally and distally, slight in knee flexion and foot dorsiflexion. She had more difficulty with nkxoup-lo-hssn movements on the left. Wkef-ao-vkjz movement, she did pretty well bilaterally. She denied any sensory asymmetry. LABORATORY DATA: Most recent hemoglobin A1c was 9.0. IMPRESSION: A 57-year-old woman who is admitted for diabetic ketoacidosis and hypertensive encephalopathy requiring intubation, found to have a right posterior parietal infarct with residual findings of weakness and field cut on the left with internal carotid artery stenosis on the right at 70%. She is on aspirin and atorvastatin. They are working toward possible rehab stay. She will need to see a vascular surgeon as an outpatient. She is followed with Dr. Kinney and Dr. Whitmore during this admission. Suggested followup with Dr. Kinney on discharge. At this point, I will sign the neurology team off the case. Please feel free to call if there are questions, concerns, or new symptoms. She should have neurology followup as an outpatient as noted above. [id number]/[facility] #: [id number] cc; Yan Kinney MD [facility] [place] DIVISIONJeimy
[2017-11-23] MEDS: Acetaminophen ADULT LIQ* 650 MG/20.3 ML UDC PO PRN ×2 (00:29→23:32)
[2017-11-23] MEDS: Levothyroxine TAB* 50 MCG TAB PO SCH (05:42)
[2017-11-23 06:11] LABS: Hematocrit 30 % (35-47); Mean Corpuscular HGB Conc 34 g/dl (31-36); Mean Corpuscular Hemoglobin 28 pg (27-31); Mean Corpuscular Volume 84 fL (80-97); Mean Platelet Volume 8.9 um3 (7.4-10.4); Platelet Count 287 10^3/ul (150-450); Red Blood Count 3.51 10^6/ul (4.00-5.40); Red Cell Distribution Width 13 % (10.5-15); White Blood Count 9.2 10^3/ul (3.5-10.8)
[2017-11-23 06:26] LABS: EGFR Non-African American 74.2 (>60)
[2017-11-23] MEDS ORDERED: Magnesium Sulfate IV* 3 GM in NS 0.9% 100 ML* 100 ML IVPB ONE (08:22)
[2017-11-23] MEDS ORDERED: Potassium Chlor TAB* 20 MEQ TAB.ER PO STA (08:23)
[2017-11-23] MEDS: Torsemide TAB* 20 MG PO SCH (09:39)
[2017-11-23] MEDS: Carvedilol TAB* 3.125 MG PO SCH ×2 (09:40→22:06)
[2017-11-23] MEDS: Lisinopril TAB* 10 MG PO SCH (09:41)
[2017-11-23] MEDS: Aspirin 81 mg CHEW TAB* 81 MG TAB.CHEW PO SCH (09:41)
[2017-11-23] MEDS: Famotidine TAB* 20 MG PO SCH ×2 (09:42→09:49)
[2017-11-23] MEDS: Thiamine TAB* 100 MG TAB PO SCH (09:42)
[2017-11-23] MEDS: Folic Acid TAB* 1 MG PO SCH (09:42)
[2017-11-23] MEDS: Nicotine PATCH 7 MG/24 HR* PATCH TRANSDERM SCH (09:44)
[2017-11-23] MEDS: Bacitracin OINTMENT* 0.5% 0.5 oz TUBE TOPICAL SCH (09:51)
[2017-11-23] MEDS: Insulin LISPRO* 1 UNITS UNIT SUBCUT SCH ×4 (10:40→22:01)
[2017-11-23] MEDS: Insulin GLARGINE(*) 1 UNITS UNIT SUBCUT SCH (11:01)
--- NOTE | 2017-11-23 16:58 | PN ---
Subjective Date of Service: 11/23/17 Interval History: Pt seen and examined. Meds and labs reviewed. Pt had episode of hypoglycemia this AM and was given christine crackers with peanut butter CC: N/A ROS: Denied SALINAS/dizziness, F/C, N/V, CP, SOB, increased cough, sputum production , abd pain, diarrhea, constipation, dysuria, myalgias, arthralgias, throat pain , and new skin lesions. The rest of the 14 point ROS are unremarkable. PHYSICAL EXAM: GEN APPEARANCE: Awake, not in acute distress HEENT: NC/AT, PERRLA, moist oral mucosa, (-) throat erythema NECK: Soft, supple, (-) cervical LAD, (-)JVD HEART: S1S2 WNL, RRR, No MRG CHEST: CTA, BL, GAE, No W/R/R ABD: Soft, ND/NT, NABS 4x Q EXT: No C/C/E SKIN: Warm to touch PSYCH: No active psychosis, hallucinations, depression, SI/HI Objective Active Medications: Acetaminophen (Tylenol Adult Liq*) 650 mg PO Q4H PRN PRN Reason: FEVER Last Admin: 11/23/17 00:29 Dose: 650 mg Aspirin (Aspirin 81 Mg Chew Tab*) 81 mg PO DAILY [facility] Last Admin: 11/23/17 09:41 Dose: 81 mg Atorvastatin Calcium (Lipitor*) 80 mg PO 1700 [facility] Last Admin: 11/22/17 17:28 Dose: 80 mg Bacitracin (Bacitracin Ointment*) 1 applic TOPICAL DAILY [facility] Last Admin: 11/23/17 09:51 Dose: 1 applic Carvedilol (Coreg Tab*) 3.125 mg PO BID [facility] Last Admin: 11/23/17 09:40 Dose: 3.125 mg Dextrose (D50w Syringe 50 Ml*) 25 gm IV PUSH Q1H PRN PRN Reason: BG<60 Famotidine (Pepcid Tab*) 20 mg PO DAILY [facility] Last Admin: 11/23/17 09:49 Dose: Not Given Folic Acid (Folvite Tab*) 1 mg PO DAILY [facility] Last Admin: 11/23/17 09:42 Dose: 1 mg Haloperidol Lactate (Haldol Inj Iv/Im*) 5 mg IV SLOW PU Q6H PRN PRN Reason: AGITATION Last Admin: 11/19/17 01:43 Dose: 5 mg Heparin Sodium (Porcine) (Heparin Flush Picc/Ml/Cvc(*)) 1 - 3 ml FLUSH 0600, 1800 [facility]; Protocol Last Admin: 11/23/17 05:42 Dose: 3 ml Insulin Glargine (Lantus(*)) 15 units SUBCUT Q24H [facility] Last Admin: 11/23/17 11:01 Dose: 15 units Insulin Human Lispro (Humalog*) 0 units SUBCUT ACHS [facility]; Protocol Last Admin: 11/23/17 13:26 Dose: 5 units Levothyroxine Sodium (Synthroid Tab*) 50 mcg PO 0600 [facility] Last Admin: 11/23/17 05:42 Dose: 50 mcg Lisinopril (Prinivil Tab*) 20 mg PO DAILY [facility] Last Admin: 11/23/17 09:41 Dose: 20 mg Nicotine (Nicotine Patch 7 Mg/24 Hr*) 1 patch TRANSDERM DAILY [facility] Last Admin: 11/23/17 09:44 Dose: 1 patch Thiamine HCl (Vitamin B-1 Tab*) 100 mg PO DAILY [facility] Last Admin: 11/23/17 09:42 Dose: 100 mg Torsemide (Demadex*) 40 mg PO DAILY [facility] Last Admin: 11/23/17 09:39 Dose: 40 mg Oxygen Devices in Use Now: None Result Diagrams: 11/23/17 05:55 11/23/17 05:55 Additional Lab and Data: CSF analysis: WBC 17 CSF glucose: 327 CSF Protein: 56 UA tox -negative Serum WBC 21 Microbiology and Other Data: Microbiology 11/15/17 17:51 CSF Gram Stain (Tube 3) - Final Cerebral Spinal Fluid 11/15/17 11:31 Nasal Screen MRSA (PCR) - Final Nasal Mrsa Not Detected Diagnostic Imaging: CT head without contrast 11/15/2017: no acute infarction. MRI brain without contrast completed on 11/16/2017: right parietal and occipital lobe infarction. She has mild subdural hematoma near the falx. CT head without contrast completed on 11/17/2017: right parietal infarction, non -hemorrhagic with resolving SDH. Assess/Plan/Problems-Billing 57 yo F iwht h/o:DM, Hypothyroidism, Cardiomyopathy, Hypertension, chronic pain , possible ETOH abuse presented obtunded, intubated in the ED. 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 -Mechanism: unknown. The area appears to be in a watershed region between MCA and RADIO RIGGER. A drop in BP can explain the infarct in pt with 70% R internal carotid stenosis. D/w Dr. Whitmore- pt will need a vascular surgeon evaluation as outpatient -As d/w Dr. Pratt OK to start aspirin -started on 11/20/17 -Continue ASA and Lipitor; lipid profile shows LDL 90 (2) HTN (hypertension) Current Visit: No Status: Acute Code(s): I10 - ESSENTIAL (PRIMARY) HYPERTENSION SNOMED Code(s): 50776348 Comment: cont coreg, restarting torsemide and lisinopril (3) Hypothyroid Current Visit: No Status: Acute Code(s): E03.9 - HYPOTHYROIDISM, UNSPECIFIED SNOMED Code(s): 82263417 Comment: Continue levothyroxine. TSH 1.6 on 11/17/17 (4) Diabetes 1.5, managed as type 2 Current Visit: Yes Status: Acute Code(s): E10.9 - TYPE 1 DIABETES MELLITUS WITHOUT COMPLICATIONS SNOMED Code(s): 334147618 Comment: -Decreased Lantus and ISS needs given above -Continue watchful waiting (5) H/O ETOH abuse Current Visit: Yes Status: Acute Code(s): Z87.898 - PERSONAL HISTORY OF OTHER SPECIFIED CONDITIONS SNOMED Code(s): 603480027 Comment: cont Thiamine, Folate, no signs of withdrawal (6) Subdural hematoma Current Visit: Yes Status: Acute Code(s): S06.5X9A - TRAUM SUBDR HEM W LOC OF UNSP DURATION, INIT SNOMED Code(s): 54344564 Comment: small , after a fall d/w Dr. Pratt. No further action needed (7) Dysphagia Current Visit: Yes Status: Acute Code(s): R13.10 - DYSPHAGIA, UNSPECIFIED SNOMED Code(s): 83819020 Comment: swallow eval OK for regular solids and thickened liquids (8) DVT prophylaxis Current Visit: Yes Status: Acute Code(s): XRA3015 - SNOMED Code(s): 429813575 Comment: SCD's . No anticoagulants due to SDH Status and Disposition: For STR placement
[2017-11-23] MEDS: Atorvastatin* 80 MG TAB PO SCH (17:57)
[2017-11-24] MEDS: Levothyroxine TAB* 50 MCG TAB PO SCH (05:18)
[2017-11-24 05:34] LABS: Hematocrit 28 % (35-47); Hemoglobin 9.4 g/dl (12.0-16.0); Mean Corpuscular HGB Conc 34 g/dl (31-36); Mean Corpuscular Hemoglobin 29 pg (27-31); Mean Corpuscular Volume 85 fL (80-97); Mean Platelet Volume 8.4 um3 (7.4-10.4); Platelet Count 273 10^3/ul (150-450); Red Blood Count 3.27 10^6/ul (4.00-5.40); Red Cell Distribution Width 13 % (10.5-15); White Blood Count 8.1 10^3/ul (3.5-10.8)
[2017-11-24 05:51] LABS: EGFR Non-African American 69.2 (>60)
[2017-11-24] MEDS: Aspirin 81 mg CHEW TAB* 81 MG TAB.CHEW PO SCH (08:14)
[2017-11-24] MEDS: Lisinopril TAB* 10 MG PO SCH (08:14)
[2017-11-24] MEDS: Thiamine TAB* 100 MG TAB PO SCH (08:14)
[2017-11-24] MEDS: Folic Acid TAB* 1 MG PO SCH (08:14)
[2017-11-24] MEDS: Carvedilol TAB* 3.125 MG PO SCH (08:15)
[2017-11-24] MEDS: Torsemide TAB* 20 MG PO SCH (08:15)
[2017-11-24] MEDS: Nicotine PATCH 7 MG/24 HR* PATCH TRANSDERM SCH (08:16)
[2017-11-24] MEDS: Famotidine TAB* 20 MG PO SCH (08:17)
[2017-11-24] MEDS: Insulin LISPRO* 1 UNITS UNIT SUBCUT SCH ×2 (08:54→12:41)
[2017-11-24] MEDS: Bacitracin OINTMENT* 0.5% 0.5 oz TUBE TOPICAL SCH (08:55)
[2017-11-24 09:12] VITALS: BP 193/84
[2017-11-24] MEDS ORDERED: Magnesium Sulfate IV* 3 GM in NS 0.9% 100 ML* 100 ML IVPB ONE (10:12)
[2017-11-24] MEDS ORDERED: hydrALAZINE IV* 20 MG/ML VIAL IV SLOW PU PRN (10:13)
[2017-11-24] MEDS ORDERED: Carvedilol TAB* 3.125 MG PO SCH ×2 (11:00→21:00)
[2017-11-24] MEDS: Insulin GLARGINE(*) 1 UNITS UNIT SUBCUT SCH (11:59)
--- NOTE | 2017-11-25 01:51 | DS ---
CC: Dr. Brice; Dr. Jacinto Lin; Dr. Yan Kinney; Dr. Forest Pagan * DISCHARGE SUMMARY: DATE OF ADMISSION: DATE OF DISCHARGE: DATE OF SERVICE: 11/24/17 DISCHARGE DIAGNOSES: As follows: 1. 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 2. Uncontrolled hypertension, improved. 3. History of hypothyroidism. 4. Diabetic ketoacidosis, resolved. 5. History of alcohol abuse. 6. Falcine subdural hematoma, discussed with Dr. Pratt with no further action needed. HISTORY OF PRESENT ILLNESS/HOSPITAL COURSE: The patient is a 57-year-old lady with history of diabetes, hypothyroidism and hypertension who presented to the ER due to an acute change in her mental status where she mentioned that the Thursday night to Thursday morning prior to her admission, she then developed recurrent vomiting without any hematemesis. Then, she became more lethargic and confused all day and upon subsequent evaluation, was found and admitted to have diabetic ketoacidosis and hypertensive encephalopathy requiring intubation. She stayed in the ICU and was found to have a right posterior parietal infarct with residual findings of weakness and field cut on the left with internal carotid artery stenosis on the right at 70%. She was then subsequently placed on aspirin and atorvastatin and had been seen by our physical therapist who suggested short-term rehab placement. However, she declined this and wanted to go home. Hence, she was discharged home with home PT and VNS per her request. The brain CT scan done on 11/19/17 did show the subacute nonhemorrhagic infract at the right parietal lobe as described above. However, it did also show some stable trace falcine subdural hematoma. Hence, Dr. Hernández contacted Dr. Pratt regarding above given she was going to be placed on aspirin and he mentioned that that should be okay and that no further action is needed other than observation. She has been observed with stable mental status with the above medication along with Neurology followup while she has been hospitalized and in fact, her mild left hemiparesis has significantly improved during her hospital course. Prior to her discharge, her hypertension became significantly uncontrolled from previous data and hence her antihypertensive medications were titrated and was advised that this will need to be followed up by her primary care physician and further titrated given her recent ischemic CVA. She had been advised to follow up/or call her PCP within 3 days post discharge. She had been informed that I have further adjusted her antihypertensive medications given her elevated BP prior to her discharge and to make sure that she discuss any further titration/changes to keep her BP well controlled given her recent stroke. She was advised followup with Dr. Kinney, her neurologist, in about 2 to 3 weeks post discharge and to call [phone] to schedule. She had been advised that if she is having any problems and/or if her symptoms worsen to call her PCP first to see if her concerns can be addressed in a timely manner and if not and she has been advised to go to the ER due to scheduling issues to once again re-discuss this with her PCP to see whether she can be seen in a walk-in clinic such as our [facility]. She was advised to call [facility] as appropriate and/or if she has been able to touch base with her PCP. She was advised to call my office regarding any questions, concerns or further clarifications regarding her discharge plan and her prescriptions and to take her medications as prescribed. PHYSICAL EXAMINATION ON DISCHARGE: Shows a most recent vital signs of record, 98.8 Fahrenheit, 83 beats per minute heart rate, 100% saturation, blood pressure of 193/84 from previous of 160/61 and 147/81. As discussed, the patient's blood pressure medication has been adjusted and the patient appropriately advised given the patient wanted to go home. HEENT: Normocephalic, atraumatic. PERRLA. Extraocular muscles intact. Negative for icterus, moist oral mucosa, negative throat erythema. Neck is soft, supple with no cervical lymphadenopathy. No JVD. Heart: S1, S2 within normal limits, regular rate and rhythm. No murmurs, rubs and gallops. Chest: Clear to auscultation bilaterally. Good air entry. No wheezes, rales or rhonchi. Abdomen is soft, nondistended, nontender. Normoactive bowel sounds x4. Extremities: No cyanosis, clubbing or edema. Psychiatric: No active psychosis , depression, suicidal nor homicidal ideation. Skin is warm to touch. TIME SPENT: The total time spent evaluating patient, reviewing pertinent data, and appropriate documentation is greater than 30 minutes. [id number]/[facility] #: [id number] [facility]
== END 2017-11-24 16:05 | disposition home health service (06) | DRG 45 ==
LOC: ED 09:54 → ICU 11:07 → MEDTELE 11-19 14:04
PROVIDERS: ADMIT Internal Medicine Critical Care Medicine; ATTEND Student in an Organized Health Care Education/Training Program
PROC: 4A00X4Z Measurement of Central Nervous Electrical Activity, External Approach (ICD-10-PCS; principal; 2017-11-15)
PROC: 0BH17EZ Insertion of Endotracheal Airway into Trachea, Via Natural or Artificial Opening (ICD-10-PCS; 2017-11-15)
PROC: 5A1945Z Respiratory Ventilation, 24-96 Consecutive Hours (ICD-10-PCS; 2017-11-15)
PROC: 05HN33Z Insertion of Infusion Device into Left Internal Jugular Vein, Percutaneous Approach (ICD-10-PCS; 2017-11-15)
PROC: B544ZZA Ultrasonography of Left Jugular Veins, Guidance (ICD-10-PCS; 2017-11-15)
PROC: 009U3ZX Drainage of Spinal Canal, Percutaneous Approach, Diagnostic (ICD-10-PCS; 2017-11-15)
DX: I63.9 Cerebral infarction, unspecified (principal); E10.10 Type 1 diabetes mellitus with ketoacidosis without coma; G93.40 Encephalopathy, unspecified; J96.00 Acute respiratory failure, unspecified whether with hypoxia or hypercapnia; S06.5X0A Traumatic subdural hemorrhage without loss of consciousness, initial encounter; I67.4 Hypertensive encephalopathy; I42.9 Cardiomyopathy, unspecified; E87.2 Acidosis; E87.1 Hypo-osmolality and hyponatremia; I16.1 Hypertensive emergency; N17.9 Acute kidney failure, unspecified; G81.94 Hemiplegia, unspecified affecting left nondominant side; F05 Delirium due to known physiological condition; R41.4 Neurologic neglect syndrome; G89.29 Other chronic pain; I10 Essential (primary) hypertension; E03.9 Hypothyroidism, unspecified; F17.210 Nicotine dependence, cigarettes, uncomplicated; M43.02 Spondylolysis, cervical region; F10.20 Alcohol dependence, uncomplicated; I65.21 Occlusion and stenosis of right carotid artery; R13.10 Dysphagia, unspecified; R47.1 Dysarthria and anarthria; Y90.9 Presence of alcohol in blood, level not specified; W17.89XA Other fall from one level to another, initial encounter; Y92.009 Unspecified place in unspecified non-institutional (private) residence as the place of occurrence of the external cause; Z81.1 Family history of alcohol abuse and dependence; Z82.49 Family history of ischemic heart disease and other diseases of the circulatory system; Z83.3 Family history of diabetes mellitus
CPT/HCPCS: 36415; 70450; 70496; 70498; 70553; 71045; 72125; 72156; 72157; 80048; 80053; 80061; 80202; 80307; 80320; 81003; 81015; 82140; 82150; 82550; 82553; 82803; 82945; 82947; 83036; 83605; 83690; 83735; 84100; 84157; 84439; 84443; 84484; 85025; 85027; 85610; 85730; 86592; 87040; 87070; 87086; 87205; 87529; 87641; 87798; 87899; 89051; 93005; 93306; 94002; 94003; 94640; 95822; 97112; 99285; 99406; A9270-GY; A9579; G0480; G0515-GO; G8978-GP-CI; G8978-GP-CK; G8979-GP-CI; G8980-GP-CI; J0133; J0290; J0330; J0360; J0696; J1630; J1644; J1815; J2060; J2250; J2543; J2704; J2930; J3010; J3370; J3411; J3475; J3480; J3490; Q9967

== ENCOUNTER 2018-02-24 16:30 | Observation (INO) | payer BC ==
[2018-02-24] MEDS ORDERED: NS 0.9% 1000 ML* 2,000 ML IV ONE (17:18)
[2018-02-24 17:49] LABS: ABS Basophils 0.1 10^3/ul (0-0.2); ABS Eosinophils 0.3 10^3/ul (0-0.6); ABS Lymphocytes 1.2 10^3/ul (1.0-4.8); ABS Monocytes 0.6 10^3/ul (0-0.8); ABS Neutrophils 4.4 10^3/ul (1.5-7.7); ABS Nucleated RBC 0 10^3/ul; Eosinophil % 4.7 %; Hematocrit 38 % (35-47); Hemoglobin 12.9 g/dl (12.0-16.0); Lymphocyte % 17.9 %; Mean Corpuscular HGB Conc 34 g/dl (31-36); Mean Corpuscular Hemoglobin 27 pg (27-31); Mean Corpuscular Volume 80 fL (80-97); Nucleated Red Blood Cells % 0.1; Platelet Count 248 10^3/ul (150-450); Red Blood Count 4.74 10^6/ul (4.00-5.40); Red Cell Distribution Width 14 % (10.5-15); White Blood Count 6.6 10^3/ul (3.5-10.8)
--- NOTE | 2018-02-24 18:00 | ED ---
HPI Diabetic - HPI Summary HPI Summary: A 57 y/o female presents to [facility] with a chief complaint of dizziness since . She claims that her BP is low. She has a Hx of DM. She also has a Hx of CVA in October [address] Kinney. She did not take her insulin this morning. Per family, the patient often grabs on to things for balance. She has a Hx of neuropathy and arthritis. She denies diarrhea, urinary symptoms, Fever, Chills, Erythema (eyes), Sore throat, Chest pain, Shortness of Breath, Cough, Abdominal pain, Vomiting, Nausea, Dysuria, Hematuria, Myalgia, Edema and rash. - History Of Current Complaint Chief Complaint: EDDiabeticProb Time Seen by Provider: 02/24/18 16:58 Hx Obtained From: Patient, Family/Assistant Professor Of Dietetics Onset/Duration: Sudden Onset, Lasting Days, Still Present Timing: Constant Aggravating: Other - feels dizzy with movement Related History: Neuropathy - Allergies/Home Medications Allergies/Adverse Reactions: Allergies Allergy/AdvReac Type Severity Reaction Status Date / Time No Known Allergies Allergy Verified 02/24/18 16:40 Home Medications: Home Medications Aspirin EC TAB* [Ecotrin EC Low Dose 81 MG*] 81 mg PO DAILY 02/24/18 [History Confirmed 02/24/18] Atorvastatin* [Lipitor*] 80 mg PO DAILY 02/24/18 [History Confirmed 02/24/18] Carvedilol TAB* [Coreg TAB*] 25 mg PO BID 02/24/18 [History Confirmed 02/24/18] Insulin Glargine (Nf) [Toujeo Solostar Pen (NF)] 15 units SUBCUT QAM 02/24/18 [ History Confirmed 02/24/18] Insulin LISPRO* [HumaLOG*] 5 units SUBCUT BID 02/24/18 [History Confirmed ] Levothyroxine TAB* [Synthroid TAB*] 50 mcg PO DAILY 02/24/18 [History Confirmed 02/24/18] Lisinopril/HCTZ 20/12.5(NF) [Zestoretic 20/12.5(NF)] 1 tab PO DAILY 02/24/18 [ History Confirmed 02/24/18] traMADol TAB* [Ultram*] 50 mg PO Q6HR PRN 02/24/18 [History Confirmed 02/24/18] PMH/Surg Hx/FS Hx/Imm Hx Endocrine/Hematology History: Reports: Hx Diabetes Cardiovascular History: Reports: Hx Hypercholesterolemia, Hx Hypertension Denies: Hx Pacemaker/ICD Respiratory History: Reports: Hx Chronic Obstructive Pulmonary Disease (COPD) Denies: Hx Asthma History: Denies: Hx Dialysis Sensory History: Denies: Hx Contacts or Glasses, Hx Hearing Aid Opthamlomology History: Denies: Hx Contacts or Glasses Neurological History: Reports: Other Neuro Impairments/Disorders - SDH Denies: Hx Dementia Psychiatric History: Denies: Hx Panic Disorder - Surgical History Surgery Procedure, Year, and Place: hysterectomy. * unsure of surgical history other than hysteroectomy so we talked with Dr. Aguiar to clear and he cleared her off of CXR, CT BRAIN, CSP, AND ABD/PV* Infectious Disease History: No Infectious Disease History: Denies: Traveled Outside the [place] in Last 30 Days - Family History Known Family History: Positive: Cardiac Disease - Mother 39yo heart disease and DM, Diabetes - Social History Alcohol Use: None Hx Substance Use: No Substance Use Type: Reports: None Hx Tobacco Use: Yes Smoking Status (MU): Light Every Day Tobacco Smoker Type: Cigarettes Review of Systems Negative: Fever, Chills Negative: Erythema Negative: Sore Throat Negative: Chest Pain Negative: Shortness Of Breath, Cough Negative: Abdominal Pain, Vomiting, Diarrhea, Nausea Genitourinary: Negative - urinary symptoms Negative: dysuria, hematuria Negative: Myalgia, Edema Neurological: Other - Positive: dizziness All Other Systems Reviewed And Are Negative: Yes Physical Exam - Summary Physical Exam Summary: Constitutional: Well-developed, Well-nourished, Alert. (-) Distressed Skin: Warm, Dry HENT: Normocephalic; Atraumatic, dry mucous membranes Eyes: Conjunctiva normal Neck: Musculoskeletal ROM normal neck. (-) JVD, (-) Stridor, (-) Tracheal deviation Cardio: Rhythm regular, rate normal, Heart sounds normal; Intact distal pulses; The pedal pulses are 2+ and symmetric. Radial pulses are 2+ and symmetric. (-) Murmur Pulmonary/Chest wall: Effort normal. (-) Respiratory distress, (-) Wheezes, (-) Rales Abd: Soft, (-) epigastric tenderness, (-) Distension, (-) Guarding, (-) Rebound Musculoskeletal: (-) Edema Lymph: (-) Cervical adenopathy Neuro: Alert, Oriented x3 Psych: Mood and affect Normal Triage Information Reviewed: Yes Vital Signs On Initial Exam: Initial Vitals Temp Pulse Resp BP Pulse Ox 99.9 F 82 20 86/62 99 02/24/18 16:36 02/24/18 16:36 02/24/18 16:36 02/24/18 16:36 02/24/18 16:36 Vital Signs Reviewed: Yes Diagnostics - Vital Signs Vital Signs Temp Pulse Resp BP Pulse Ox 02/24/18 16:36 99.9 F 82 20 86/62 99 - Laboratory Lab Results: Lab Results 02/24/18 02/24/18 Range/Units 17:26 17:32 WBC 6.6 (3.5-10.8) 10^3/ul RBC 4.74 (4.00-5.40) 10^6/ul Hgb 12.9 (12.0-16.0) g/dl Hct 38 (35-47) % MCV 80 (80-97) fL MCH 27 (27-31) pg MCHC 34 (31-36) g/dl RDW 14 (10.5-15) % Plt Count 248 (150-450) 10^3/ul MPV 9.0 (7.4-10.4) fL Neut % (Auto) 66.7 % Lymph % (Auto) 17.9 % [place] % (Auto) 9.2 % Eos % (Auto) 4.7 % Baso % (Auto) 1.5 % Absolute Neuts (auto) 4.4 (1.5-7.7) 10^3/ul Absolute Lymphs (auto) 1.2 (1.0-4.8) 10^3/ul Absolute Monos (auto) 0.6 (0-0.8) 10^3/ul Absolute Eos (auto) 0.3 (0-0.6) 10^3/ul Absolute Basos (auto) 0.1 (0-0.2) 10^3/ul Absolute Nucleated RBC 0 10^3/ul Nucleated RBC % 0.1 VBG pH 7.45 H (7.33-7.43) VBG pCO2 53 H (41-51) mmHg VBG pO2 15 L (35-45) mmHg VBG HCO3 31.5 H (24-28) mmol/L VBG O2 Saturation 23.6 L (70-80) % VBG Base Excess 10.9 H (0-4) Result Diagrams: 02/24/18 17:32 02/24/18 17:32 Lab Statement: Any lab studies that have been ordered have been reviewed, and results considered in the medical decision making process. - Radiology CXR Radiology Interpretation Completed By: Radiologist Summary of Radiographic Findings: Stigmata of obstructive lung disease. No acute pulmonary or cardiac process evident. ED physician has reveiewed this imaging report. - EKG 17:35 Cardiac Rate: NL - 77 bpm EKG Rhythm: Sinus Rhythm Summary of EKG Findings: Early repolarization V2-V5, no STEMI. Re-Evaluation - Re-Evaluation First Eval Re-Evaluation Time: 18:40 Change: Unchanged Comment: Family is not comfortable with DC Diabetic Course/Dx - Course Course Of Treatment: Her EKG showed NSR at 77 bpm, Early repolarization V2-V5, no STEMI. CXR impression: Stigmata of obstructive lung disease. No acute pulmonary or cardiac process evident. Upon re-eval the patient's family was not comfortable with DC. Lab results were obtained. The patient took insulin and Lantus at 14:00 so her sugar must have been higher than 500. No DKA. Dx: acute renal failure, weakness, hyperglycemia. At 18:45 The patient will be admitted to medicine. The patient notes that she has not had access to a PCP since her health insurance lapsed. - Diagnoses Provider Diagnoses: Hyperglycemia, Acute renal failure, Weakness Discharge - Sign-Out/Discharge Documenting (check all that apply): Patient Departure - Admit - Discharge Plan Condition: Fair Disposition: ADMITTED TO [facility] Referrals: Forest Pagan MD [Primary Care Provider] - - Attestation Statements Document Initiated by Scribe: Yes Documenting Scribe: Rakan Medina Provider For Whom Ariaibe is Documenting (Include Credential): Jacinto Lin MD Scribe Attestation: Rakan Galarza, scribed for Jacinto Lin MD on 02/24/18 at 1933. Status of Scribe Document: Ready
[2018-02-24] MEDS ORDERED: Insulin REGULAR(*) 1 UNITS UNIT SUBCUT ONE ×2 (18:32→18:54)
[2018-02-24] MEDS ORDERED: Ondansetron ODT TAB* 4 MG PO ONE (18:33)
[2018-02-24] MEDS ORDERED: Insulin REGULAR(*) 1 UNITS UNIT ONE (18:53)
[2018-02-24] MEDS ORDERED: NS 0.9% 1000 ML* 1,000 ML IV ONE (20:06)
[2018-02-24] MEDS ORDERED: Acetaminophen TAB* 325 MG PO PRN (21:23)
[2018-02-24] MEDS ORDERED: traMADol TAB* 50 MG PO PRN (21:28)
[2018-02-24] MEDS ORDERED: Atorvastatin* 80 MG TAB PO SCH (21:30)
[2018-02-24] MEDS ORDERED: Dextrose 50% Syringe 50 ML* 25 GM/50 ML SYRINGE IV PUSH PRN (21:37)
[2018-02-24] MEDS ORDERED: NS 0.9% 1000 ML* 1,000 ML IV SCH (21:45)
[2018-02-24 22:26] LABS: EGFR Non-African American 54.8 (>60)
[2018-02-24] MEDS ORDERED: Potassium Chlor TAB* 10 MEQ TAB.ER PO ONE (23:44)
[2018-02-24] MEDS ORDERED: Dextrose 50% VIAL 50 ml IV PRN (23:44)
[2018-02-25] MEDS: KCL 20 MEQ/100 ML IVPREMIX* 20 MEQ/100 ML BAG IV SCH ×2 (00:13→03:30)
[2018-02-25] MEDS ORDERED: Magnesium Sulfate 2 GM IV* 2 GM/50 ML BAG IVPB ONE (00:30)
[2018-02-25] MEDS ORDERED: Levothyroxine TAB* 50 MCG TAB PO SCH (06:00)
[2018-02-25] MEDS ORDERED: Insulin LISPRO* 1 UNITS UNIT SUBCUT SCH (07:30)
--- NOTE | 2018-02-25 07:40 | HP ---
CC: Dr. Forest Pagan * HISTORY AND PHYSICAL: DATE OF ADMISSION: 02/24/18 PROVIDER: Perla Mckeon NP PRIMARY CARE PROVIDER: Dr. Forest Pagan. ATTENDING PHYSICIAN WHILE IN THE HOSPITAL: Dr. Iman Pate * (dictated by Perla Mckeon NP). CHIEF COMPLAINT: 1. Hypotension. 2. Hyperglycemia. HISTORY OF PRESENT ILLNESS: Ms. Butt is a 57-year-old female with past medical history significant for diabetes, hypertension, CVA in October of 2017, hypothyroidism, who presented to the emergency room for evaluation of hyperglycemia. The patient reports that since Thursday, she started feeling dizzy and weak and has been sleeping a lot with decreased appetite. She does report that she did eat breakfast this morning, but her blood sugars over the past several days have been running in the 500s and she has not been consistently taking her insulin. The patient does report that at 1445 today, she did take 15 units of Toujeo and 8 units of Humalog. The patient denies any nausea, vomiting, or diarrhea. Denies any recent fever or chills or any chest pain or shortness of breath. She does have a chronic cough. There has been no change in her cough. Denies any dysphagia. Denies any arthralgias or myalgias. Denies any rashes or lesions. She denies any other contributing symptoms other than feeling fatigued most noticeable after taking her blood pressure medications. Due to these symptoms and her hyperglycemia in the emergency room , we were asked to see and evaluate her for admission. While in the emergency room, she was found to have a blood sugar on arrival of 492. She was given IV normal saline and insulin in the emergency room as well as 15 units of regular insulin and her repeat blood sugar was 280. PAST MEDICAL HISTORY: Significant for: 1. Diabetes. 2. Hypertension. 3. CVA in October of 2017. 4. Hypothyroidism. 5. She was noted to have mild left hemiparesis. Family does report that she does have some residual left leg weakness where she does drag her foot. PAST SURGICAL HISTORY: None. HOME MEDICATIONS: 1. Lisinopril/hydrochlorothiazide 20/12.5 one tablet p.o. daily. 2. Tramadol 50 mg p.o. q.6 hours as needed. 3. Spironolactone 25 mg p.o. daily. 4. Levothyroxine 50 mcg p.o. daily. 5. Carvedilol 25 mg p.o. b.i.d. 6. Aspirin 81 mg p.o. daily. 7. Atorvastatin 80 mg p.o. daily. 8. Lispro 8 units b.i.d. 9. Toujeo 15 units b.i.d. FAMILY HISTORY: Father at the age of 53 of an VT. Mother with a history of diabetes. Grandmother with a history of cancer. SOCIAL HISTORY: The patient does smoke half a pack per day. Denies any alcohol or illicit drug use. She is . Surrogate decision maker in the event she is unable to make her own decisions is her , Mariano Ardon. His phone number is [phone]. She is a full code. REVIEW OF SYSTEMS: There has been no documented fever. The patient denies any significant weight change. She does report a decreased appetite. She denies any rhinorrhea or sore throat. Does have a chronic cough that has been unchanged. Denies any abdominal pain, nausea, vomiting, or diarrhea. She complains of weakness and dizziness upon standing, increased fatigue, and hyperglycemia. She denies any loss of consciousness. Denies any seizures. She denies any dysuria or urinary frequency. A review of 14 systems was completed and all others were negative. PHYSICAL EXAMINATION GENERAL: At this time, Ms. Ardon is a 57-year-old female. She appears fatigued, resting on the stretcher in the emergency room. She is in no acute distress. VITAL SIGNS: Heart rate was 74, respirations 16, O2 saturation 94% on room air , blood pressure 117/76, temperature was 99.3. HEENT: Head is atraumatic, normocephalic. Eyes: EOMs are intact. Sclerae anicteric and not pale. Oral mucosa appeared to be moist. NECK: Supple. LUNGS: Clear to auscultation bilaterally. No wheezes, rales, or rhonchi. CARDIAC: S1, S2. It is regular rate and rhythm. No murmurs, rubs, or gallops. ABDOMEN: Soft and nontender. Bowel sounds are present x4. EXTREMITIES: Pulses are +2 bilaterally. Pedal pulses are intact +2 bilaterally. There is no edema noted to the lower extremities. She is able to move all 4 extremities with 4/5 strength. NEUROLOGIC: She is awake, alert, and oriented x3. She appears fatigued. Her speech is clear. There are gross no focal deficits. SKIN: Intact. DIAGNOSTIC STUDIES/LAB DATA: WBCs are 6.6, RBCs 4.74, hemoglobin 12.9, hematocrit 38, platelet count 248. Venous blood gas: pH was 7.45, PCO2 was 53 , PO2 was 15, HCO3 was 31.5. Venous O2 saturation was 23.6. Sodium was 127, potassium 3.5, chloride was 86, carbon dioxide was 33, anion gap was 8, BUN 47, creatinine 1.43, lactic acid was 2, calcium 9.8, magnesium was 1.7. Bilirubin 0.40, AST was 23, ALT of 26, alkaline phosphatase is 135. TSH was 2.72, free T4 was 1.64. Initial blood glucose was 492, repeat was 280. She had a chest x-ray. Radiologist's impression: Stigmata for obstructive lung disease. No acute pulmonary or cardiac process was evident. She had an electrocardiogram, which showed sinus rhythm at a rate of 77. She does have some T-wave elevations in V3 and V4. ASSESSMENT AND PLAN: Ms. Ardon is a 57-year-old female, who presented to the emergency room today with complaints of weakness, fatigue, hyperglycemia, and dizziness. We were asked to see and evaluate her due to her hypotension and hyperglycemia. 1. Orthostatic hypotension. I suspect this is related to dehydration. The patient did receive 3 L of normal saline IV in the emergency room. She continues to be orthostatic. After the normal saline, we will continue IV hydration overnight normal saline at 100 cc an hour and I will repeat orthostatic vital signs in the morning. I suspect this is related to a combination of several blood pressure medications. At this time, I am going to hold all of her blood pressure medications except for Coreg and I will decrease her Coreg from 12.5 mg p.o. b.i.d. to 3.125 mg p.o. b.i.d. 2. Hyperglycemia. The patient has not been feeling well over the past 2 to 3 days and has not been consistently taking her insulin at home. Her blood sugars have been running in the 500s. She did take her insulin today. At approximately 2:45, she took 15 units of Toujeo and 8 units of Humalog and subsequently was given 15 units of regular insulin in the emergency room. Her initial blood sugar was 492 after IV hydration. Her blood sugar was down to 280. She was feeling better and wanting to eat. At this time, I will continue Accu-Chek q.6 hours and I will place her on lispro sliding scale. I will hold her Toujeo at this time. 3. Acute kidney injury. The patient does have an elevated BUN and creatinine. I suspect this is related to dehydration and hyperglycemia. We will give her hydration, repeat her BMP. Her creatinine was 1.04 which is improved from 1.43. We will continue with hydration and repeat her BMP in the a.m. 4. Hypertension. At this time, she does have orthostatic hypotension. I suspect this is contributing to her weakness and dizziness at home and feeling fatigued after taking her blood pressure medications in the morning and in the evening. At this time, I am going to stop all of her blood pressure medications due to the significant orthostatic hypotension that the patient is experiencing. We will continue her on IV hydration overnight at normal saline at 100 cc an hour and we will repeat orthostatic vital signs in the morning. I suspect that the patient needs to have her blood pressure medications and diuretics adjusted as this could be contributing to her dehydration and orthostatic hypotension. I will continue her on at this time 3.125 mg. 5. History of cerebrovascular disease. We will continue on her statin, atorvastatin 80, and aspirin 81 mg p.o. daily. We will continue to monitor her blood pressure and keep that in control. 6. Hypothyroidism. She will continue on her Synthroid at 50 mcg p.o. daily. 7. FEN. She can have a heart-healthy, decaff okay diet. 8. DVT prophylaxis. I will encourage ambulation. 9. Code status. She is a full code. TIME SPENT: Time spent on this admission was approximately 60 minutes, greater than half that time was spent with the patient [id number] obtaining my history and physical, the other half the time was spent going over my plan of care and implementing my plan of care. I have discussed this with my attending, Dr. Iman Pate; she is in agreement with my plan. PERLA SILVIA, TAX EXAMINER [id number]/[facility] #: [id number] LISA
[2018-02-25 07:45] VITALS: BP 138/91
[2018-02-25 08:16] LABS: ABS Basophils 0.1 10^3/ul (0-0.2); ABS Eosinophils 0.5 10^3/ul (0-0.6); ABS Lymphocytes 1.8 10^3/ul (1.0-4.8); ABS Monocytes 0.7 10^3/ul (0-0.8); ABS Neutrophils 5.2 10^3/ul (1.5-7.7); ABS Nucleated RBC 0 10^3/ul; Eosinophil % 5.8 %; Hematocrit 32 % (35-47); Hemoglobin 10.9 g/dl (12.0-16.0); Lymphocyte % 21.4 %; Mean Corpuscular HGB Conc 34 g/dl (31-36); Mean Corpuscular Hemoglobin 28 pg (27-31); Mean Corpuscular Volume 81 fL (80-97); Mean Platelet Volume 9.3 fL (7.4-10.4); Nucleated Red Blood Cells % 0; Platelet Count 209 10^3/ul (150-450); Red Blood Count 3.93 10^6/ul (4.00-5.40); Red Cell Distribution Width 15 % (10.5-15); White Blood Count 8.3 10^3/ul (3.5-10.8)
[2018-02-25 08:26] LABS: EGFR Non-African American 56.1 (>60)
[2018-02-25] MEDS ORDERED: Aspirin EC TAB* 81 MG TAB.EC PO SCH (09:00)
[2018-02-25] MEDS ORDERED: Carvedilol TAB* 3.125 MG PO SCH (09:00)
[2018-02-25] MEDS ORDERED: Atorvastatin* 80 MG TAB PO SCH (09:00)
[2018-02-25] MEDS ORDERED: Insulin GLARGINE(*) 1 UNITS UNIT SUBCUT ONE (09:05)
--- NOTE | 2018-02-26 07:16 | DS ---
CC: Dr. Forest Pagan * DISCHARGE SUMMARY: DATE OF ADMISSION: 02/24/18 DATE OF DISCHARGE: 02/25/18 PRIMARY CARE PROVIDER: Dr. Forest Pagan. MY ATTENDING WHILE IN THE HOSPITAL: Dr. Maryan Hernández.* (DICTATED BY BORIS HENRIQUEZ) PRIMARY DISCHARGE DIAGNOSES: 1. Hypotension. 2. Hyperglycemia. 3. Dehydration. SECONDARY DISCHARGE DIAGNOSES: 1. Diabetes mellitus, type 2. 2. Hypertension. 3. Cerebrovascular accident in October of 2017. STUDIES DONE WHILE IN THE HOSPITAL: Chest x-ray from 02/24/18 read as stigmata of obstructive lung disease. No acute pulmonary or cardiac process evident. Electrocardiogram from 02/24/18 read as normal sinus rhythm, early repolarization V1, V3, V4. No other significant abnormalities. Normal R-wave progression. Normal axis. No blocks or hypertrophy. QTc of 442, rate of 77. Compared to previous exam, no significant changes. MEDICATIONS AT DISCHARGE: 1. Tramadol 50 mg p.o. daily. 2. Levothyroxine 50 mcg p.o. daily. 3. Carvedilol 25 mg p.o. b.i.d. 4. Aspirin 81 mg p.o. daily. 5. Atorvastatin 80 mg p.o. daily. 6. Insulin glargine 15 units subcutaneous q.a.m. 7. Tylenol 650 mg p.o. q.4 hours as needed. 8. Insulin lispro 8 units subcutaneous t.i.d. with meals. Medications discontinued at discharge: 1. Lisinopril/hydrochlorothiazide 20/12.5. 2. Spironolactone 25 mg p.o. daily. HOSPITAL COURSE: This is a brief summary of the patient's presentation. For more details, please see the history and physical from Perla Mckeon NP, on 02/25/18. In brief, the patient is a 57-year-old female with a past medical history significant for the above, who presents to the emergency department because since Thursday, she has been having cold symptoms and weakness with decreased appetite and sleeping a lot. The patient has been taking her insulin as prescribed of 15 units of Toujeo and 8 units of Humalog b.i.d. with meals, but her blood sugars have still been running very high. The patient noticed ___ __ after taking her blood pressure medications, the patient noted some increase in her urine. The patient in the emergency department was found to have a blood sugar of 492. The patient was not acidotic. The patient had a VBG, which showed an alkalotic pH. The patient was given 15 units of insulin in the emergency department and her blood sugar rapidly decreased to 61. The patient also had a low potassium of 2.9, which was replaced and an elevated creatinine of 1.43 up from her baseline of approximately 0.8 to 0.9. The patient was admitted to the hospital given fluids. The patient felt much better in the morning. The patient was monitored in telemetry, had no abnormalities. The patient's hemoglobin decreased from 12.9 to 10.9 on 02/25/18 likely representing dilution. The patient states she had much more energy. The patient had no other focal deficits. The patient states that her cold symptoms felt better after she got up moving around and was able to blow her nose. The patient on the day of admission still had her morning blood sugar of 290. The patient, however, was very anxious for discharge and stated she would leave against medical advice if she were not discharged. The patient was stable and amenable for discharge on 02/25/18. The patient during her hospitalization had her Zestoretic discontinued, her spironolactone discontinued, and her carvedilol dose decreased. The patient was initially hypertensive, but then had episodes of hypotension while in the hospital. PHYSICAL EXAMINATION ON THE DAY OF DISCHARGE: General: The patient is a 57- year- old female who appears her stated age and sitting comfortably in bed, in no acute distress. Vital Signs: At the time of evaluation, temperature 98.0, pulse rate 84, respiratory rate 18, oxygen saturation 95% on room air, and blood pressure 138/91. Neck: Supple. No lymphadenopathy. No carotid bruits auscultated. No JVD. Cardiac: Regular rate and rhythm. No clicks, murmurs, gallops, or rubs. Pulses are 2+ in the dorsalis pedis, posterior tibial, and radial areas. Respiratory: Clear to auscultation bilaterally. No wheezes, rales, or rhonchi. Good air exchange bilaterally. Abdomen: Soft, nontender, and nondistended. Bowel sounds present and normoactive in all 4 quadrants. No hepatosplenomegaly. No abdominal bruits auscultated. No hepatojugular reflux. Genitourinary: No suprapubic or CVA tenderness. Skin: Clean, dry, and intact. No rash. Neuro: Cranial nerves II through XII intact. No focal deficits. Alert and oriented x3. Psychiatric: Irritable, short, but cooperative. LABORATORY DATA: On the day of discharge, white blood cell count 8.3, hemoglobin 10.9, hematocrit 32, MCV 81, MCH 28, platelet count 209. Sodium 132 , potassium 4.0, chloride 100, carbon dioxide 26, anion gap 6, BUN 33, creatinine 1.02, glucose 290, calcium 8.4. DISCHARGE PLAN: The patient will be discharged to home. The patient will follow up closely with her primary care provider. The patient should have at the time of this appointment a repeat BMP to assess her renal function, which was returning to normal. The patient has been instructed to take her blood sugar 3 times daily and the patient has been instructed to take 3 units of Humalog insulin if her blood sugar is above 200 or if she is going to eat, but not if both are not going to occur. The patient should call her primary care provider for persistent hyperglycemia. The patient should have a hemoglobin A1c checked and have this routinely checked as the patient states that her blood sugar normally runs in the 200s. The patient is encouraged to drink plenty of fluids. The patient should follow up with her primary care provider for a repeat blood pressure check and have her blood pressure medications reintroduced as needed. The patient should return to the hospital for passing out, chest pain, severe shortness of breath, or other alarming symptoms. TIME SPENT: Approximately 45 minutes was spent on the discharge of this patient , 20 of which was spent [id number] with the patient obtaining history and physical and discussing treatment plan. BORIS HENRIQUEZ [id number]/[facility] #: [id number] LISA
== END 2018-02-25 09:54 | disposition home or self-care (01) ==
LOC: ED 16:30 → MED 21:23
PROVIDERS: ADMIT Pediatrics; ATTEND Internal Medicine
DX: I95.9 Hypotension, unspecified (principal); E86.0 Dehydration; E11.65 Type 2 diabetes mellitus with hyperglycemia; I10 Essential (primary) hypertension; Z86.73 Personal history of transient ischemic attack (TIA), and cerebral infarction without residual deficits; F17.210 Nicotine dependence, cigarettes, uncomplicated; Z79.82 Long term (current) use of aspirin
CPT/HCPCS: 36415; 71045; 80048; 80053; 82803; 83605; 83735; 84439; 84443; 85025; 86140; 87040; 93005; 99283; A9270-GY; G0378; J3475; J3480

== ENCOUNTER → 2018-07-29 17:16 | Emergency (ER) | payer BC ==
[~2018-07-29 17:16] MED LIST: Ciprofloxacin TAB* 500 MG PO ONE; Iodixanol* (CONTRAST) 320 MG/ML 100 ML SDV IV ONE; Morphine 10 MG/ML VIAL (1 ml) IV ONE; NS 0.9% 1000 ML** 1,000 ML IV ONE; Ondansetron INJ* 2 MG/ML VIAL IV ONE; hydrALAZINE IV* 20 MG/ML VIAL IV SLOW PU ONE; metroNIDAZOLE TAB* 250 MG PO ONE
[2018-07-29 18:35] LABS: ABS Basophils 0.1 10^3/ul (0-0.2); ABS Eosinophils 0.4 10^3/ul (0-0.6); ABS Lymphocytes 1.3 10^3/ul (1.0-4.8); ABS Monocytes 0.7 10^3/ul (0-0.8); ABS Neutrophils 4.7 10^3/ul (1.5-7.7); Eosinophil % 5.7 %; Hematocrit 33 % (35-47); Hemoglobin 10.9 g/dL (12.0-16.0); Lymphocyte % 18.5 %; Mean Corpuscular HGB Conc 33 g/dL (31-36); Mean Corpuscular Hemoglobin 27 pg (27-31); Mean Corpuscular Volume 80 fL (80-97); Mean Platelet Volume 8.9 fL (7.4-10.4); Platelet Count 201 10^3/uL (150-450); Red Blood Count 4.09 10^6 /uL (3.70-4.87); Red Cell Distribution Width 14 % (10.5-15); White Blood Count 7.2 10^3/uL (3.5-10.8)
[2018-07-29 18:46] LABS: ALT 17 U/L (7-52); AST 33 U/L (13-39); Albumin/Globulin Ratio 1.1 (1-3); Alkaline Phosphatase 106 U/L (34-104); Anion Gap 6 mmol/L (2-11); BUN/Creatinine Ratio 23.7 (8-20); Blood Urea Nitrogen 31 mg/dL (6-24); C Reactive Protein 3.58 mg/L (<8.01); CO2 Carbon Dioxide 27 mmol/L (22-32); Calcium 8.5 mg/dL (8.6-10.3); Chloride 104 mmol/L (101-111); EGFR African American 50.8 (>60); Globulin 2.7 g/dL (2-4); Glucose 302 mg/dL (70-100); Potassium 4.7 mmol/L (3.5-5.0); Sodium 137 mmol/L (135-145); Total Protein 5.7 g/dL (6.4-8.9)
--- NOTE | 2018-07-29 22:14 | ED ---
Back Pain - HPI Summary HPI Summary: Patient complains of ongoing bilateral lower back pain 2 weeks with associated nausea and vomiting. States patient states PCP didn't x-ray her lumbar spine week ago, patient does not know results. Patient states she has a history of pancreatitis and was concerned that this was an attack of pancreatitis. Denies trauma, urinary retention, incontinence, fever, cough, sore throat, CP, SOB, abdominal pain, change in urine, change in BM, vaginal symptoms. Ankle history is CVA, EtOH, DM to, DKA, HTN, hypothyroid. Patient blood pressure in triage 247/120 area patient states PCP is trying to bring her blood pressure under control but trying different medications at this time, states she has been averaging around 190 SBP over the last couple visits to PCP. Abdominal surgical history is ablation, BTL. - History of Current Complaint Chief Complaint: EDDolly Stated Complaint: I THINK I HAVE PANCREATITIS PER PT Time Seen by Provider: 07/29/18 17:38 Hx Obtained From: Patient Onset/Duration: Gradual Onset, Lasting Weeks Onset/Duration: Started Weeks Ago Timing: Constant Severity Initially: Moderate Severity Currently: Moderate Pain Intensity: 5 Pain Scale Used: 0-10 Numeric Character: Aching Aggravating Symptom(s): Nothing Alleviating Symptom(s): Nothing Associated Signs And Symptoms: Positive: Negative - Allergies/Home Medications Allergies/Adverse Reactions: Allergies Allergy/AdvReac Type Severity Reaction Status Date / Time No Known Allergies Allergy Verified 02/24/18 16:40 Home Medications: Home Medications Insulin GLARGINE(*) [Lantus(*)] 11 units SUBCUT QAM 07/29/18 [History Confirmed 07/29/18] Insulin LISPRO* [HumaLOG*] 8 units SUBCUT QAM 07/29/18 [History Confirmed ] Levothyroxine TAB* [Synthroid TAB*] 75 mcg PO DAILY 07/29/18 [History Confirmed 07/29/18] Losartan TAB* [Cozaar TAB*] 50 mg PO DAILY 07/29/18 [History Confirmed 07/29/18] Simvastatin (NF) [Zocor (NF)] 40 mg PO QPM 07/29/18 [History Confirmed 07/29/18] PMH/Surg Hx/FS Hx/Imm Hx Endocrine/Hematology History: Reports: Hx Diabetes Cardiovascular History: Reports: Hx Hypercholesterolemia, Hx Hypertension, Other Cardiovascular Problems/Disorders - cardiomyopathy Denies: Hx Pacemaker/ICD Respiratory History: Reports: Hx Chronic Obstructive Pulmonary Disease (COPD) Denies: Hx Asthma History: Denies: Hx Dialysis Sensory History: Reports: Hx Contacts or Glasses Denies: Hx Hearing Aid Opthamlomology History: Reports: Hx Contacts or Glasses Neurological History: Reports: Other Neuro Impairments/Disorders - SDH Denies: Hx Dementia Psychiatric History: Denies: Hx Panic Disorder - Surgical History Surgery Procedure, Year, and Place: hysterectomy. * unsure of surgical history other than hysteroectomy so we talked with Dr. Aguiar to clear and he cleared her off of CXR, CT BRAIN, CSP, AND ABD/PV* Infectious Disease History: No Infectious Disease History: Denies: Traveled Outside the [place] in Last 30 Days - Family History Known Family History: Positive: Cardiac Disease - Mother 39yo heart disease and DM, Diabetes - Social History Alcohol Use: None Hx Substance Use: No Substance Use Type: Reports: None Hx Tobacco Use: Yes Smoking Status (MU): Light Every Day Tobacco Smoker Type: Cigarettes Review of Systems Constitutional: Negative Eyes: Negative ENT: Negative Cardiovascular: Negative Respiratory: Negative Positive: Vomiting, Nausea Genitourinary: Negative Musculoskeletal: Other Skin: Negative Neurological: Negative Psychological: Normal All Other Systems Reviewed And Are Negative: Yes Physical Exam - Summary Physical Exam Summary: No tenderness to palpation of back. No bony point tenderness, no paraspinal tenderness. PMS intact in bilateral lower extremities. Abdomen soft nontender. Lung sounds clear to auscultation bilaterally. RRR. Triage Information Reviewed: Yes Vital Signs On Initial Exam: Initial Vitals Temp Pulse Resp BP Pulse Ox 97.8 F 73 16 233/93 99 07/29/18 17:18 07/29/18 17:18 07/29/18 17:18 07/29/18 17:18 07/29/18 17:18 Vital Signs Reviewed: Yes Appearance: Positive: Well-Appearing Skin: Positive: Warm Head/Face: Positive: Normal Head/Face Inspection Eyes: Positive: Normal Neck: Positive: Supple Respiratory/Lung Sounds: Positive: Clear to Auscultation Cardiovascular: Positive: Normal Abdomen Description: Positive: Nontender Musculoskeletal: Positive: Normal Neurological: Positive: Normal Psychiatric: Positive: Normal AVPU Assessment: Alert - Asher Coma Scale Best Eye Response: 4 - Spontaneous Best Motor Response: 6 - Obeys Commands Best Verbal Response: 5 - Oriented Coma Scale Total: 15 Diagnostics - Vital Signs Vital Signs Temp Pulse Resp BP Pulse Ox 07/29/18 21:06 18 07/29/18 20:15 75 18 178/74 100 07/29/18 20:05 74 16 183/82 99 07/29/18 20:00 74 20 99 07/29/18 19:55 75 26 184/77 98 07/29/18 19:47 73 19 183/113 98 07/29/18 19:35 70 20 220/95 98 07/29/18 19:32 70 24 232/100 99 07/29/18 19:25 73 18 241/97 99 07/29/18 19:15 72 17 242/103 98 07/29/18 19:05 71 20 235/100 97 07/29/18 19:00 71 20 97 07/29/18 18:55 71 18 235/101 97 07/29/18 18:45 76 18 261/108 100 07/29/18 18:43 240/110 07/29/18 18:40 16 07/29/18 18:35 75 14 240/109 99 07/29/18 18:31 75 21 251/101 99 07/29/18 18:01 73 23 242/89 100 07/29/18 18:00 72 18 100 07/29/18 17:52 75 14 214/102 100 07/29/18 17:31 12 247/120 07/29/18 17:18 97.8 F 73 16 233/93 99 - Laboratory Lab Results: Lab Results 07/29/18 07/29/18 07/29/18 Range/Units 18:22 18:22 18:22 WBC 7.2 (3.5-10.8) 10^3/uL RBC 4.09 (3.70-4.87) 10^6 /uL Hgb 10.9 L (12.0-16.0) g/dL Hct 33 L (35-47) % MCV 80 (80-97) fL MCH 27 (27-31) pg MCHC 33 (31-36) g/dL RDW 14 (10.5-15) % Plt Count 201 (150-450) 10^3/uL MPV 8.9 (7.4-10.4) fL Neut % (Auto) 65.1 % Lymph % (Auto) 18.5 % [place] % (Auto) 9.6 % Eos % (Auto) 5.7 % Baso % (Auto) 1.1 % Absolute Neuts (auto) 4.7 (1.5-7.7) 10^3/ul Absolute Lymphs (auto) 1.3 (1.0-4.8) 10^3/ul Absolute Monos (auto) 0.7 (0-0.8) 10^3/ul Absolute Eos (auto) 0.4 (0-0.6) 10^3/ul Absolute Basos (auto) 0.1 (0-0.2) 10^3/ul Absolute Nucleated RBC 0.0 10^3/ul Nucleated RBC % 0.0 Sodium 137 (135-145) mmol/L Potassium 4.7 (3.5-5.0) mmol/L Chloride 104 (101-111) mmol/L Carbon Dioxide 27 (22-32) mmol/L Anion Gap 6 (2-11) mmol/L BUN 31 H (6-24) mg/dL Creatinine 1.31 H (0.51-0.95) mg/dL Est GFR ( Amer) 50.8 (>60) Est GFR (Non-Af Amer) 42.0 (>60) BUN/Creatinine Ratio 23.7 H (8-20) Glucose 302 H (70-100) mg/dL Lactic Acid 0.7 (0.5-2.0) mmol/L Calcium 8.5 L (8.6-10.3) mg/dL Total Bilirubin 0.50 (0.2-1.0) mg/dL AST 33 (13-39) U/L ALT 17 (7-52) U/L Alkaline Phosphatase 106 H (34-104) U/L C-Reactive Protein 3.58 (<8.01) mg/L Total Protein 5.7 L (6.4-8.9) g/dL Albumin 3.0 L (3.2-5.2) g/dL Globulin 2.7 (2-4) g/dL Albumin/Globulin Ratio 1.1 (1-3) Lipase < 10 L (11.0-82.0) U/L Result Diagrams: 07/29/18 18:22 07/29/18 18:22 Lab Statement: Any lab studies that have been ordered have been reviewed, and results considered in the medical decision making process. Back Pain Course/Dx - Course Course Of Treatment: Patient complains of ongoing bilateral lower back pain 2 weeks with associated nausea and vomiting. States patient states PCP didn't x- ray her lumbar spine week ago, patient does not know results. Patient states she has a history of pancreatitis and was concerned that this was an attack of pancreatitis. Denies trauma, urinary retention, incontinence, fever, cough, sore throat, CP, SOB, abdominal pain, change in urine, change in BM, vaginal symptoms. Ankle history is CVA, EtOH, DM to, DKA, HTN, hypothyroid. Patient blood pressure in triage 247/120 area patient states PCP is trying to bring her blood pressure under control but trying different medications at this time, states she has been averaging around 190 SBP over the last couple visits to PCP. Abdominal surgical history is ablation, BTL. Physical exam:No tenderness to palpation of back. No bony point tenderness, no paraspinal tenderness. PMS intact in bilateral lower extremities. Abdomen soft nontender. Lung sounds clear to auscultation bilaterally. RRR. Blood pressure elevated in triage 247/ 120. Vital signs otherwise within normal limits. Creatinine 1.31 which is patient baseline. Labs otherwise at patient baseline. CT of chest/abdomen/ pelvis positive for pulmonary nodules, hepatic lesions, bony lesions and lumbar spine, and colitis. CT lumbar spine positive for bony lesion. Blood pressure improved to 172/84 with hydralazine 5 mg IV. Recommended to patient that she be admitted. Patient refused, signed AMA. Patient started on Cipro and Flagyl here in the ED. Rx for same for colitis. Advised patient to follow up with oncology for further evaluation of nodules and possible metastatic disease to liver and lumbar spine. Dr. Arzola's information provided. Patient also advised to continue to work with primary care on managing hypertension. Patient states she understands and approves of plan. - Diagnoses Provider Diagnoses: Colitis, Lung nodules, Hepatic lesion, Bone lesion Discharge - Sign-Out/Discharge Documenting (check all that apply): Patient Departure Patient Received Moderate/Deep Sedation with Procedure: No - Discharge Plan Condition: Stable Disposition: HOME Prescriptions: Ciprofloxacin HCl [Cipro] 500 mg PO BID 10 Days #20 tablet metroNIDAZOLE [Flagyl 500 MG TAB] 500 mg PO TID 10 Days #30 tab Patient Education Materials: Pulmonary Nodules (ED), Colitis (ED) Referrals: Forest Pagan MD [Primary Care Provider] - Geovanny Arzola MD [Medical Doctor] - Additional Instructions: Take antibiotics as directed for colitis. Follow up with oncology Dr. Arzola for further evaluation of lung nodules and hepatic and bone lesions. Return to the ED for any new or worsening symptoms. - Billing Disposition and Condition Condition: STABLE Disposition: Home
[2018-07-29 23:26] VITALS: BP 172/84
== END | disposition home or self-care (01) ==
LOC: ED 17:16
DX: K52.9 Noninfective gastroenteritis and colitis, unspecified (principal); R91.8 Other nonspecific abnormal finding of lung field; K76.9 Liver disease, unspecified; R60.1 Generalized edema; K86.89 Other specified diseases of pancreas; M89.9 Disorder of bone, unspecified; I10 Essential (primary) hypertension; E11.9 Type 2 diabetes mellitus without complications; E03.9 Hypothyroidism, unspecified; E78.00 Pure hypercholesterolemia, unspecified; J44.9 Chronic obstructive pulmonary disease, unspecified; F17.210 Nicotine dependence, cigarettes, uncomplicated; Z86.73 Personal history of transient ischemic attack (TIA), and cerebral infarction without residual deficits; Z79.4 Long term (current) use of insulin; Z79.890 Hormone replacement therapy; Z79.899 Other long term (current) drug therapy
CPT/HCPCS: 36415; 71260; 72132; 74177; 80053; 83605; 83690; 85025; 86140; 96361; 96374; 96375; 96376; 99283; A9270-GY; J0360; J2270; J2405; Q9967